=== PATIENT | female | born 1975 | race African-American/Black ===

== ENCOUNTER 2018-05-23 18:19 | Inpatient (IN) ==
[2018-05-23] MEDS ORDERED: Tetanus/Diphtheria Toxoid Adult Vaccine Inj 0.5 ML Vial IM ONE (20:10)
--- NOTE | 2018-05-23 20:10 | ED ---
HPI General Chief complaint: Skin/Abscess/Foreign Body Stated complaint: Right leg swollen,dizziness Time Seen by Provider: 05/23/18 19:50 Source: patient Mode of arrival: ambulatory Limitations: no limitations History of Present Illness HPI narrative: 43-year-old black female transgender presents emergency department with complaints of uncontrolled diabetes for over 10 years, as well as a open draining sore on her right lower leg for the past week. An open sore developed in the last day or 2. It had drained brown discharge. The surrounding skin has started to peel. She states that she has not been eating. She has had a decreased appetite, nausea and gags when she attempts to eat. She denies any fever chills. No abdominal pain, urinary symptoms. Related Data Home Medications Medication Instructions Recorded Confirmed No Known Home Medications 05/23/18 05/23/18 Allergies Allergy/AdvReac Type Severity Reaction Status Date / Time No Known Allergies Allergy Verified 05/23/18 18:39 Review of Systems ROS: all other systems reviewed are negative Constitutional Reports body ache(s), Reports lethargy and Reports poor appetite ENT Denies nasal congestion and Denies sore throat Cardiovascular Denies chest pain and Denies dyspnea Respiratory Denies chest congestion and Denies dyspnea Gastrointestinal Denies abdominal pain and Reports nausea Musculoskeletal Reports abnormal gait, Reports back pain, Reports myalgias and Reports arthralgias PMFSH History History Provided By: Patient Social History Social History Recent Travel in [facility] within the Last 8 Weeks: No Recent Out of Country Travel within the Last 8 Weeks: No Exam Narrative Exam Narrative: GENERAL: Well-developed, morbidly obese in no acute distress. Nontoxic appearing. HEAD: Normocephalic, atraumatic. EYES: Pupils equal round and reactive. Extraocular motions intact. No scleral icterus. No injection or drainage. ENT: TMs clear without erythema. The external auditory canals clear. Nose: clear . Posterior pharynx is pink and moist. No tonsillar edema or exudate. Uvula midline. Airway patent. NECK: Trachea midline.Supple, nontender, moves head freely. No central bony tenderness or spasm. CARDIOVASCULAR: Regular rate and rhythm without murmurs, gallops, or rubs. RESPIRATORY: Clear to auscultation. Breath sounds equal bilaterally. No wheezes , rales, or rhonchi. GASTROINTESTINAL: Abdomen soft, non-tender, nondistended. No hepato-splenomegaly , or palpable masses. No guarding. EXTREMITIES: Examination of the right lower extremity is considerably larger than the left lower extremity. From the knee down to the ankle is indurated, tender, there is surrounding desquamation with a central area of ulceration. There is a small amount of purulent drainage. Patient has intact gross sensation distally. She has intact pulses. Patient's upper extremities are without obvious deformity. She has sensation and good pulses. BACK: Nontender without deformity or crepitance. No flank tenderness. Course Reevaluation(s) Reevaluation #1: I have spoken with Janay the nurse practitioner covering for Dr. Cox. She has accepted the admission. She is aware of the history, laboratory findings and indication for full admission. Time: 22:52 Initial Documented Vital Signs Temperature 98.2 F 05/23/18 18:25 Pulse Rate 110 H 05/23/18 18:25 Respiratory Rate 16 05/23/18 18:25 Blood Pressure 175/85 H 05/23/18 18:25 Pulse Oximetry 100 05/23/18 18:25 Last Documented Vital Signs Temperature 98.2 F 05/23/18 18:25 Pulse Rate 110 H 05/23/18 18:25 Respiratory Rate 16 05/23/18 18:25 Blood Pressure 175/85 H 05/23/18 18:25 Pulse Oximetry 100 05/23/18 18:25 Medical Decision Making MDM Narrative Medical decision making narrative: IV access is obtained. Patient will be given 2 L of normal saline, Accu-Chek, CBC, chemistry, lactic acid, blood cultures 2. Patient is given Zosyn 4.5 g IV, 2 g of vancomycin IV. Will obtain an ultrasound of the right lower extremity rule out localized abscess. Patient has a large area of cellulitis to the right lower extremity. Medical Screen Exam Complete: Yes Emergency Medical Condition: Yes Differential Diagnosis Differential Diagnosis: MDM: High Differential diagnoses: Abscess, folliculitis, cellulitis, lymphangitis, abrasion, contact dermatitis, hyperglycemia, mitral abnormality Lab Data Result diagrams: 05/23/18 21:05 05/23/18 21:05 Lab Results 05/23/18 05/23/18 05/23/18 Range/Units 21:05 21:05 21:10 WBC 18.5 H (4.0-11.0) th/mm3 RBC 3.63 L (4.00-5.30) mil/mm3 Hgb 9.1 L (11.6-15.3) gm/dL Hct 29.1 L (35.0-46.0) % MCV 80.2 (80.0-100.0) fL MCH 25.0 L (27.0-34.0) pg MCHC 31.2 L (32.0-36.0) % RDW 16.2 (11.6-17.2) % Plt Count 265 (150-450) th/mm3 MPV 9.0 (7.0-11.0) fL Neut % (Auto) 85.1 H (16.0-70.0) % Lymph % (Auto) 8.2 L (9.0-44.0) % [place] % (Auto) 6.5 (0.0-8.0) % Eos % (Auto) 0.0 (0.0-4.0) % Baso % (Auto) 0.2 (0.0-2.0) % Neut # (Auto) 15.7 H (1.8-7.7) th/mm3 Lymph # (Auto) 1.5 (1.0-4.8) th/mm3 [place] # (Auto) 1.2 H (0.0-0.9) th/mm3 Eos # (Auto) 0.0 (0.0-0.4) th/mm3 Baso # (Auto) 0.0 (0.0-0.2) th/mm3 WBC Differential . Differential Comment Auto diff final Sodium 131 L (136-145) meq/L Potassium 4.2 (3.5-5.1) meq/L Chloride 97 L (98-107) meq/L Carbon Dioxide 21.6 (21.0-32.0) meq/L Anion Gap 12 (5-15) meq/L BUN 10 (7-18) mg/dL Creatinine 1.26 H (0.50-1.00) mg/dL Estimated GFR 56 L (>89) mL/min Random Glucose 379 H (74-106) mg/dL Lactic Acid 1.7 (0.4-2.0) mmol/L Calcium 8.6 (8.5-10.1) mg/dL Total Bilirubin 0.9 (0.2-1.0) mg/dL AST 36 (15-37) U/L ALT 21 (10-53) U/L Alkaline Phosphatase 113 (45-117) U/L Total Protein 8.7 H (6.4-8.2) g/dL Albumin 2.1 L (3.4-5.0) g/dL Beta-Hydroxybutyric Acd 4.56 H (0.00-0.39) mmol/L Imaging Data Radiologist's impression: Soft Tissue Ultrasound 05/23/18 20:47 CONCLUSION: 1. Complex fluid collection may be inflammatory/infectious process or posttraumatic and appears nonspecific. Discharge Plan Physicians Team ED Provider: Lyn Nazario ED Midlevel Provider: Reginald Hebert Primary Care Provider: Primary Care Karen Small Rxs /Orders / Referrals /Forms Prescriptions: No Action No Known Home Medications RF: 0 Discharge Interventions Interventions: Vital Signs Last Done: 05/23/18 18:25 Status ED Status: With Doctor
[2018-05-23] MEDS ORDERED: Piperacil/Tazo 4.5 GM Premix 4.5 GM/100 ML BAG IV.SIG ONE (20:53)
[2018-05-23] MEDS ORDERED: Vancomycin Inj 2,250 MG in Sodium Chlor 0.9% Inj 500 ML IV.SIG ONE (20:53)
[2018-05-23] MEDS: Sod Chloride 0.9% Inj 1,000 ML IV.SIG SCH (21:19)
[2018-05-23 21:35] LABS: Baso % (Auto) 0.2 % (0.0-2.0); Hematocrit 29.1 % (35.0-46.0); Hemoglobin 9.1 gm/dL (11.6-15.3); Lymph # (Auto) 1.5 th/mm3 (1.0-4.8); Lymph % (Auto) 8.2 % (9.0-44.0); Mean Corpuscular HGB Conc 31.2 % (32.0-36.0); Mean Corpuscular Volume 80.2 fL (80.0-100.0); Mono # (Auto) 1.2 th/mm3 (0.0-0.9); Mono % (Auto) 6.5 % (0.0-8.0); Neut # (Auto) 15.7 th/mm3 (1.8-7.7); Neut % (Auto) 85.1 % (16.0-70.0); Platelet Count 265 th/mm3 (150-450); Red Blood Count 3.63 mil/mm3 (4.00-5.30); Red Cell Distribution Width 16.2 % (11.6-17.2); White Blood Count 18.5 th/mm3 (4.0-11.0)
[2018-05-23 22:07] LABS: Alanine Aminotransferase 21 U/L (10-53)
[2018-05-23 22:08] LABS: Albumin 2.1 g/dL (3.4-5.0); Anion Gap 12 meq/L (5-15); Aspartate Aminotransferase 36 U/L (15-37); Blood Urea Nitrogen 10 mg/dL (7-18); Calcium 8.6 mg/dL (8.5-10.1); Carbon Dioxide 21.6 meq/L (21.0-32.0); Chloride 97 meq/L (98-107); Glomerular Filtration Rate 56 mL/min (>89); Glucose,Random 379 mg/dL (74-106); Sodium 131 meq/L (136-145)
[2018-05-23 22:10] LABS: Potassium 4.2 meq/L (3.5-5.1)
--- NOTE | 2018-05-23 22:17 | US ---
EXAM DATE: 05/23/2018 10:09 PM EDT AGE/SEX: 43 years / Female INDICATIONS: Swollen area on right leg. CLINICAL DATA: This is the patient's initial encounter. Patient reports that signs and symptoms have been present for 1 week and indicates a pain score of 2/10. MEDICAL/SURGICAL HISTORY: Diabetes. Nausea. None. COMPARISON: No prior exams available for comparison. FINDINGS: Examination of the patient's right distal calf demonstrates a complex fluid collection measures almos t 5.3 cm in size in the lower calf medially. CONCLUSION: 1. Complex fluid collection may be inflammatory/infectious process or posttraumatic and appears nons pecific. Electronically signed by: Carmen Rodriguez MD 05/23/2018 10:16 PM EDT
[2018-05-23 22:18] LABS: Alkaline Phosphatase 113 U/L (45-117); Beta Hydroxybutyric Acid 4.56 mmol/L (0.00-0.39); Total Protein 8.7 g/dL (6.4-8.2)
[2018-05-23] MEDS ORDERED: Acetaminophen 325 MG Tablet PO PRN (23:44)
--- NOTE | 2018-05-23 23:48 | P.HPIM ---
History of Present Illness Primary Care Physician: No Primary Care Physician Chief Complaint: right leg wound History of Present Illness: 43 y/o female with a history of uncontrolled diabetes for over 10 years (does not see a pcp) presented to the ED with complaints of right lower leg wound. She states the sore on her right lower leg opened up this past week and started draining brown fluid. She has associated decreased appetite and nausea. Denies any fever or chills at home.She states she has not been able to control her diabetes with diet and exercise and does not see a pcp due to insurance issues. Inpatient Certification: I certify that the inpatient services were ordered in accordance with Medicare regulations governing the order. This includes certification that hospital inpatient services are reasonable and necessary and in the case of services not specified as inpatient-only under 42 CFR 419.22(n), that they are appropriately provided as inpatient services in accordance to with the 2-midnight benchmark under 43 CFR 412.3(e) Estimated Total Length of Stay (Days): 3 Plans for Post Hospital Care: Home PMFSH - History History Provided By: Patient - Travel History Recent Travel in the [place] Within the Last 8 Weeks: No Recent Travel Out of the Country Within the Last 8 Weeks: No Medications and Allergies Active Medications: Active Medications Acetaminophen (Tylenol) 650 mg PO Q4H PRN PRN Reason: Temp > 100.4 Sodium Chloride (Ns Inj) 1,000 mls @ 0 mls/hr IV.SIG BOLUS MIGUELITO Stop: 05/24/18 21:01 Last Infusion: 05/23/18 23:11 Dose: Infused Sodium Chloride (Ns Inj) 1,000 mls @ 100 mls/hr IV.CONT .Q10H MIGUELITO Morphine Sulfate (Morphine Inj) 2 mg IV.PUSH Q4H PRN PRN Reason: pain 1 to 10 Ondansetron HCl (Zofran Inj) 4 mg IV.PUSH Q6H PRN PRN Reason: NAUSEA OR VOMITING Sodium Chloride (Ns Flush) 2 ml IV.FLUSH PRN PRN PRN Reason: FLUSH AFTER USING IV ACCESS Allergies Allergy/AdvReac Type Severity Reaction Status Date / Time No Known Allergies Allergy Verified 05/23/18 18:39 Home Medications Medication Instructions Recorded Confirmed Type No Known Home Medications 05/23/18 05/23/18 History Exam Vital signs: Vital Signs 05/23/18 18:25 Temperature 98.2 F Pulse Rate 110 H Respiratory Rate 16 Blood Pressure 175/85 H Pulse Oximetry 100 Intake & Output 05/23/18 05/23/18 05/24/18 06:59 18:59 06:59 Intake Total 1100 / 1100 Balance 1100 / 1100 Weight 150 kg Intake: IV 1100 / 1100 Zosyn 4.5 GM Premix 4.5 gm In 100 / 100 100 ml @ 200 mls/hr IV.SIG ONCE ONE Rx#:[id number] NS Inj 1,000 ML @ Wide Open IV. 1000 / 1000 SIG BOLUS MIGUELITO Rx#:[id number] Narrative: GENERAL: This is a well-nourished, obese patient, in no apparent distress. Skin: Cellulitis to right calf with open purulent/brown draining wound, foul smelling CARDIOVASCULAR: Regular rate and rhythm without murmurs, gallops, or rubs. RESPIRATORY: Clear to auscultation. Breath sounds equal bilaterally. No wheezes , rales, or rhonchi. GASTROINTESTINAL: Abdomen soft, non-tender, nondistended. Normal active bowel sounds MUSCULOSKELETAL: Bilateral lower extremity edema, non pitting NEURO: Alert & Oriented x4 to person, place, time, situation. Moves all ext x4 Results - Labs CBC & Chem 7: 05/23/18 21:05 05/23/18 21:05 Labs: Short CBC 05/23/18 Range/Units 21:05 WBC 18.5 H (4.0-11.0) th/mm3 Hgb 9.1 L (11.6-15.3) gm/dL Hct 29.1 L (35.0-46.0) % Plt Count 265 (150-450) th/mm3 BMP 05/23/18 21:05 Sodium 131 L Potassium 4.2 Chloride 97 L Carbon Dioxide 21.6 BUN 10 Creatinine 1.26 H Calcium 8.6 Liver Function 05/23/18 Range/Units 21:05 Total Bilirubin 0.9 (0.2-1.0) mg/dL AST 36 (15-37) U/L ALT 21 (10-53) U/L Alkaline Phosphatase 113 (45-117) U/L Albumin 2.1 L (3.4-5.0) g/dL - Imaging Impressions Soft Tissue Ultrasound 05/23/18 20:47 CONCLUSION: 1. Complex fluid collection may be inflammatory/infectious process or posttraumatic and appears nonspecific. Caprini VTE Risk Assessment Caprini VTE Risk Assessment: Moderate/High Risk (score >= 2) Caprini Risk Assessment Model: Point Value = 1 Point Value = 2 Point Value = 3 Point Value = 5 Age 41-60 Minor surgery BMI > 25 kg/m2 Swollen legs Varicose veins or History of unexplained or recurrent spontaneous Oral contraceptives or hormone replacement Sepsis (< 1 month) Serious lung disease, including pneumonia (< 1 month) Abnormal pulmonary function Acute myocardial infarction Congestive heart failure (< 1 month) History of inflammatory bowel disease Medical patient at bed rest Age 61-74 Arthroscopic surgery Major open surgery (> 45 min) Laparoscopic surgery (> 45 min) Malignancy Confined to bed (> 72 hours) Immobilizing plaster cast Central venous access Age >= 75 History of VTE Family history of VTE Factor V Leiden Prothrombin [id number] Lupus anticoagulant Anticardiolipin antibodies Elevated serum homocysteine Heparin-induced thrombocytopenia Other congenital or acquired thrombophilia Stroke (< 1 month) Elective arthroplasty Hip, pelvis, or leg fracture Acute spinal cord injury (< 1 month) Prophylaxis Regimen: Total Risk Factor Score Risk Level Prophylaxis Regimen 0-1 Low Early ambulation 2 Moderate Order ONE of the following: *Sequential Compression Device (SCD) *Heparin 5000 units SQ BID 3-4 Higher Order ONE of the following medications: *Heparin 5000 units SQ TID *Enoxaparin/Lovenox 40 mg SQ daily (WT < 150 kg, CrCl > 30 mL/min) *Enoxaparin/Lovenox 30 mg SQ daily (WT < 150 kg, CrCl > 10-29 mL/min) *Enoxaparin/Lovenox 30 mg SQ BID (WT < 150 kg, CrCl > 30 mL/min) AND/OR *Sequential Compression Device (SCD) 5 or more Highest Order ONE of the following medications: *Heparin 5000 units SQ TID (Preferred with Epidurals) *Enoxaparin/Lovenox 40 mg SQ daily (WT < 150 kg, CrCl > 30 mL/min) *Enoxaparin/Lovenox 30 mg SQ daily (WT < 150 kg, CrCl > 10-29 mL/min) *Enoxaparin/Lovenox 30 mg SQ BID (WT < 150 kg, CrCl > 30 mL/min) AND *Sequential Compression Device (SCD) Assessment and Plan - Plan Sepsis, wbc 18.5, HR 110, source Cellulitis with possible abscess US reviewed and shows a complex fluid collection measures almost 5.3 cm in size in the lower calf medially, infectious vs inflammatory. -Consult podiatry for evaluation -IV antibiotics Zosyn and Vancomycin -Pain management with IV morphine -NPO, IVF -Doppler US r/o DVT Hyperglycemia, in patient with chronic uncontrolled diabetes -A1C ordered -Accu checks with SSI -Patient will most likely need long acting insulin Acute kidney injury, creatine 1.2, unknown baseline, maybe chronic due to history of uncontrolled diabetes -Cont IVF -Trend creatine -avoid nephrotoxins DVT prophylaxis: SCDs Discussed Condition With: Patient and RN
[2018-05-23] MEDS ORDERED: Vancomycin Consult Pharmacy OTHER PRN (23:50)
[2018-05-24] MEDS: Sod Chloride 0.9% Inj 1,000 ML IV.SIG SCH (00:05)
[2018-05-24] MEDS: Morphine Sulfate Inj 2 MG/ML Vial IV.PUSH PRN ×2 (00:05→05:26)
[2018-05-24] MEDS ORDERED: Dextrose 50% in Water 50 ML Vial IV.PUSH PRN (00:46)
[2018-05-24] MEDS: Sod Chloride 0.9% Inj 1,000 ML IV.CONT SCH ×3 (01:40→23:42)
[2018-05-24] MEDS: Piperacil/Tazo 3.375 GM Premix 50 ML IV.SIG SCH ×5 (05:10→21:59)
[2018-05-24 06:38] LABS: Baso % (Auto) 0.3 % (0.0-2.0); Eos % (Auto) 0.2 % (0.0-4.0); Hematocrit 26.8 % (35.0-46.0); Hemoglobin 8.5 gm/dL (11.6-15.3); Lymph # (Auto) 1.3 th/mm3 (1.0-4.8); Lymph % (Auto) 8.3 % (9.0-44.0); Mean Corpuscular HGB Conc 31.8 % (32.0-36.0); Mean Corpuscular Hemoglobin 25.4 pg (27.0-34.0); Mean Corpuscular Volume 79.8 fL (80.0-100.0); Mean Platelet Volume 8.9 fL (7.0-11.0); Mono # (Auto) 0.9 th/mm3 (0.0-0.9); Neut # (Auto) 13.2 th/mm3 (1.8-7.7); Neut % (Auto) 85.2 % (16.0-70.0); Platelet Count 249 th/mm3 (150-450); Red Blood Count 3.36 mil/mm3 (4.00-5.30); Red Cell Distribution Width 16.7 % (11.6-17.2); White Blood Count 15.5 th/mm3 (4.0-11.0)
[2018-05-24 06:52] LABS: Carbon Dioxide 19.9 meq/L (21.0-32.0); Potassium 3.9 meq/L (3.5-5.1)
[2018-05-24] MEDS: Insulin NovoLOG Aspart Correctional Sugar Inj SQ SCH ×4 (09:18→23:35)
--- NOTE | 2018-05-24 09:47 | P.PN ---
Subjective Interval history: Follow-up visit right lower extremity wound with abscess, cellulitis, uncontrolled diabetes, morbid obesity. Patient seen and examined today. Reports she has not been taking any medications for diabetes for 10 years. States that she has abused her body by eating and drinking like she does not care and also heavily on soda. States that wound has been with her for quite some time however she has been feeling weak, wound started to weep and leak. Denies any fevers, chills, nausea, vomiting, diarrhea. Denies chest pain, palpitations, headaches, dizziness. Podiatry Dr. Craft that at the bedside, discussed with patient plan for MRI, CT runoff of the right lower extremity secondary to wound, abscess to assess for plan for either surgical intervention in the OR or bedside I&D pending MRI. Physical Exam Vital signs: Vital Signs 05/23/18 18:25 05/24/18 00:10 05/24/18 01:48 Temperature 98.2 F 98.6 F Pulse Rate 110 H 104 H 108 H Respiratory Rate 16 18 17 Blood Pressure 175/85 H 127/56 L 158/79 H Pulse Oximetry 100 100 97 05/24/18 04:00 05/24/18 08:00 Temperature 98.5 F 99.8 F H Pulse Rate 105 H 106 H Respiratory Rate 17 16 Blood Pressure 147/71 H 125/67 Pulse Oximetry 95 97 Intake & Output 05/23/18 05/24/18 05/24/18 18:59 06:59 18:59 Intake Total 2672.5 / 2672.5 1050 / 1050 Balance 2672.5 / 2672.5 1050 / 1050 Weight 150 kg 149.685 kg Intake: IV 2672.5 / 2672.5 1050 / 1050 NS Inj 1,000 ML @ 100 mls/hr IV 1000 / 1000 .CONT .Q10H MIGUELITO Rx#:[id number] Zosyn 3.375 GM Premix 50 ML @ 50 / 50 50 / 50 100 mls/hr IV.SIG Q6H MIGUELITO Rx#: [id number] Zosyn 4.5 GM Premix 4.5 gm In 100 / 100 100 ml @ 200 mls/hr IV.SIG ONCE ONE Rx#:[id number] NS Inj 1,000 ML @ Wide Open IV. 1999 SIG BOLUS MIGUELITO Rx#:[id number] Vancomycin Inj 2,250 MG In NS 522.5 / 522.5 Inj 500 ML @ 250 mls/hr IV.SIG ONCE ONE Rx#:[id number] Other: # Voids 2 Weight On Admission 149.685 kg Narrative: GENERAL: This is an obese, well-developed patient, in no apparent distress. SKIN: Warm and dry. HEENT: Normocephalic. Pupils equal round and reactive. Nose without bleeding. Airway patent. NECK: Trachea midline. No JVD. Supple. CARDIOVASCULAR: Regular rate and rhythm without murmurs, gallops, or rubs. RESPIRATORY: Clear to auscultation. Breath sounds equal bilaterally. No wheezes , rales, or rhonchi. GASTROINTESTINAL: Abdomen soft, non-tender, nondistended. Bowel Sounds normoactive x4. MUSCULOSKELETAL: Extremities without clubbing, cyanosis. Right lower extremity edema +3, possible underlying lymphedema, wound weeping, skin sloughing off, appears to have purulent drain pustular lesion noted. Erythema of entire LLE including mid thigh are. Midthigh inner lateral side withwound opening, serous fluid drain, scant amt. LLE edema +1 NEUROLOGICAL: Awake and alert. Oriented to time, place, person. No focal neuro deficit. Moves all extremities, RLE weaker. Normal speech. Results - Labs CBC & Chem 7: 05/24/18 05:56 05/24/18 05:56 Laboratory Results - last 24 hr 05/23/18 05/23/18 05/23/18 21:05 21:05 21:10 WBC 18.5 H RBC 3.63 L Hgb 9.1 L Hct 29.1 L MCV 80.2 MCH 25.0 L MCHC 31.2 L RDW 16.2 Plt Count 265 MPV 9.0 Neut % (Auto) 85.1 H Lymph % (Auto) 8.2 L [place] % (Auto) 6.5 Eos % (Auto) 0.0 Baso % (Auto) 0.2 Neut # (Auto) 15.7 H Lymph # (Auto) 1.5 [place] # (Auto) 1.2 H Eos # (Auto) 0.0 Baso # (Auto) 0.0 WBC Differential . Differential Comment Auto diff final Sodium 131 L Potassium 4.2 Chloride 97 L Carbon Dioxide 21.6 Anion Gap 12 BUN 10 Creatinine 1.26 H Estimated GFR 56 L POC Glucose Random Glucose 379 H Lactic Acid 1.7 Calcium 8.6 Total Bilirubin 0.9 AST 36 ALT 21 Alkaline Phosphatase 113 Total Protein 8.7 H Albumin 2.1 L Beta-Hydroxybutyric Acd 4.56 H 05/24/18 05/24/18 05/24/18 05:56 05:56 08:44 WBC 15.5 H RBC 3.36 L Hgb 8.5 L Hct 26.8 L MCV 79.8 L MCH 25.4 L MCHC 31.8 L RDW 16.7 Plt Count 249 MPV 8.9 Neut % (Auto) 85.2 H Lymph % (Auto) 8.3 L [place] % (Auto) 6.0 Eos % (Auto) 0.2 Baso % (Auto) 0.3 Neut # (Auto) 13.2 H Lymph # (Auto) 1.3 [place] # (Auto) 0.9 Eos # (Auto) 0.0 Baso # (Auto) 0.0 WBC Differential . Differential Comment Auto diff final Sodium 138 Potassium 3.9 Chloride 103 Carbon Dioxide 19.9 L Anion Gap 15 BUN 10 Creatinine 1.10 H Estimated GFR 65 L POC Glucose 347 H Random Glucose 326 H Lactic Acid Calcium 8.0 L Total Bilirubin AST ALT Alkaline Phosphatase Total Protein Albumin Beta-Hydroxybutyric Acd - Imaging Impressions Soft Tissue Ultrasound 05/23/18 20:47 CONCLUSION: 1. Complex fluid collection may be inflammatory/infectious process or posttraumatic and appears nonspecific. Assessment and Plan - Plan 43 y/o female with a history of uncontrolled diabetes for over 10 years (does not see a pcp) presented to the ED with complaints of right lower leg wound. Sepsis, wbc 18.5, HR 110, source Cellulitis with possible abscess US reviewed and shows a complex fluid collection measures almost 5.3 cm in size in the lower calf medially, infectious vs inflammatory. -Consult podiatry, Plan for MRI, CTA runoff -IV antibiotics Zosyn and Vancomycin -Pain management with IV morphine -IVF, Diabetic diet -Doppler US r/o DVT Hyperglycemia, in patient with chronic uncontrolled diabetes -A1C ordered -Accu checks with SSI -Patient will most likely need long acting insulin, start 70/30 BID 10 units , adjust as needed Acute kidney injury, creatine 1.2, unknown baseline, maybe chronic due to history of uncontrolled diabetes -Cont IVF -Trend creatine -avoid nephrotoxins DVT prophylaxis: SCDs Code Status: Full Code Discussed Condition With: Patient, nursing Discharge Planning: Plan to DC when clinically improved.
[2018-05-24 11:25] LABS: Hemoglobin A1c 15.1 % (4.3-6.0)
[2018-05-24] MEDS ORDERED: Gadobutrol PF 7.5 MMOL/7.5 ML Vial (for RAD) IV.SIG ONE (12:52)
--- NOTE | 2018-05-24 13:23 | MR ---
EXAM DATE: 05/24/2018 1:10 PM EDT AGE/SEX: 43 years / Female INDICATIONS: Right lower leg swelling and weeping. CLINICAL DATA: This is the patient's subsequent encounter. Patient reports that signs and symptoms h ave been present for 2 days and indicates a pain score of 3/10. MEDICAL/SURGICAL HISTORY: None. None. COMPARISON: No prior exams available for comparison. TECHNIQUE: Multiplanar, multisequence MRI examination was performed without and with 15 ml Gadavist (gadobutrol) contrast as single exam dose. FINDINGS: There is diffuse subcutaneous edema, skin thickening and enhancement following contrast administratio n within the subcutaneous tissues characteristic of cellulitis. There are no organized fluid collecti ons seen to suggest abscess at this time, however fluid is most pronounced along the medial aspect of the lower leg. The underlying bone marrow signal intensity is normal. No abnormal intramuscular enha ncement is seen. CONCLUSION: 1. Diffuse subcutaneous edema, nonorganized fluid and skin thickening characteristic of cellulitis a nd inflammation without obvious abscess. Electronically signed by: Osman Burns MD 05/24/2018 1:21 PM EDT
[2018-05-24] MEDS: Vancomycin Inj 1,750 MG in Sodium Chlor 0.9% Inj 500 ML IV.SIG SCH (17:59)
--- NOTE | 2018-05-24 20:13 | MB ---
cc: Rosemary Maravilla DPM DATE: 05/24/2018 REASON FOR CONSULTATION: Right foot cellulitis. HISTORY OF PRESENT ILLNESS: The patient is a 43-year-old female with uncontrolled diabetes who presented with a right lower leg wound which opened up approximately a week ago with drainage. Denies fever or chills at home. No previous history of treatment. PAST MEDICAL HISTORY: Diabetes. PAST SURGICAL HISTORY: Per HPI. MEDICATIONS: Per HPI. PHYSICAL EXAMINATION: Right versus left lower extremity edema. Right lower extremity +3 pitting edema, medial calf sloughing. No active streaking. Positive erythema. DP is palpable. PT is nonpalpable. Muscles of extremities within normal limits. LABORATORY DATA: WBC on 05/23/2018 was 18.5 and on 05/24/2018 was 15.5. Right lower extremity MRI without any abscess, positive edema. ASSESSMENT: 1. Diabetes mellitus, uncontrolled. 2. Right leg cellulitis, no abscess per MRI. RECOMMENDATIONS: Continue with IV antibiotics and likely Unna boot changes daily. Unna boot changes would be indicated if there is no CHF. There is a CTA pending. Plan to discharge when stable. There is no surgical intervention required. Rosemary Maravilla DPM SR/purvi , 07:55 PM , 08:01 PM
--- NOTE | 2018-05-24 20:27 | CT ---
EXAM DATE: 05/24/2018 7:55 PM EDT AGE/SEX: 43 years / Female INDICATIONS: Peripheral vascular disease. Bilateral lower extremities swollen. Right lower extremity blistered and draining. CLINICAL DATA: This is the patient's initial encounter. Patient reports that signs and symptoms have been present for 4 - 6 days and indicates a pain score of 8/10. MEDICAL/SURGICAL HISTORY: Diabetes. None. RADIATION DOSE: 35.26 CTDI (mGy) ; Patient body habitus COMPARISON: No prior exams available for comparison. TECHNIQUE: Volumetric scanning was performed using a multi-row detector CT scanner during bolus infu brad of 100 ml Omnipaque 350 (iohexol) nonionic water-soluble contrast as a single exam dose. The data was post processed with a variety of visualization algorithms including full volume maximum inte nsity projection, multi-planar sliding thin slab reformation, curved planar reformation, and surface rendering techniques. Using automated exposure control and adjustment of the mA and/or kV according to patient size, radiation dose was kept as low as reasonably achievable to obtain optimal diagnostic quality images. DICOM format image data is available electronically for review and comparison. FINDINGS: The aorta appears intact and the takeoff of the celiac, SMA and renal arteries are patent. The common iliac arteries are all also intact. The external iliac arteries, common femoral, superficial femoral arteries, popliteal arteries all intact bilaterally. There is excellent three-vessel runoff to the l eft ankle. The right lower extremity significantly swollen with significant subcutaneous edema below the knee. This causes some degree of compartment syndrome and mass effect on the blood supply to the patient's ankle, however 3 vessels are identified supplying the ankle. There is mild degree of subcut aneous emphysema in the left lower extremity. CONCLUSION: 1. Extensive serpiginous edema below the knee on the right and to a lesser degree on the left. There is excellent three-vessel runoff to the left ankle and on the right side blood vessels are patent al though it down to trifurcation past the popliteal artery. Below the knee there is dampened flow proba [place] due to extrinsic mass effect from significant edema in the surrounding soft tissues without defin ite focal stenosis for technique. Electronically signed by: Carmen Rodriguez MD 05/24/2018 8:25 PM EDT
[2018-05-25] MEDS: Piperacil/Tazo 3.375 GM Premix 50 ML IV.SIG SCH ×4 (03:23→21:55)
--- NOTE | 2018-05-25 09:38 | US ---
EXAM DATE: 05/25/2018 9:31 AM EDT AGE/SEX: 43 years / Female INDICATIONS: Right leg pain. CLINICAL DATA: This is the patient's initial encounter. Patient reports that signs and symptoms have been present for 1 day and indicates a pain score of 4/10. MEDICAL/SURGICAL HISTORY: Diabetes. None. COMPARISON: [facility] [place], 05/23/2018. . TECHNIQUE: Venous ultrasound of both lower extremities was performed from the inguinal ligament to t he proximal calf. Real-time, color Doppler and spectral tracing, compression and augmentation techni ques were used. FINDINGS: Normal compression of the deep venous system from the inguinal region to the proximal calf . No echogenic clot is seen. Normal response of the venous system to augmentation and respiration. Th ere is soft tissue swelling and complex fluid collection as seen on previous study. This appears slig htly less prominent. Fluid collection measures 3.8 x 4.0 x 2.8 cm. A second fluid collection measures 2.8 x 1.3 x 2.3 cm CONCLUSION: 1. No deep venous thrombosis. 2. Decreasing fluid collection right leg. Electronically signed by: Andre Montoya MD 05/25/2018 9:36 AM EDT
[2018-05-25] MEDS: Sod Chloride 0.9% Inj 1,000 ML IV.CONT SCH ×2 (09:53→16:53)
[2018-05-25] MEDS: Insulin NovoLOG Aspart Correctional Sugar Inj SQ SCH ×4 (09:55→20:40)
[2018-05-25] MEDS: Vancomycin Inj 1,750 MG in Sodium Chlor 0.9% Inj 500 ML IV.SIG SCH (11:59)
--- NOTE | 2018-05-25 15:45 | P.PN ---
Subjective Interval history: Follow-up visit right lower extremity wound with abscess, cellulitis, uncontrolled diabetes, morbid obesity. Patient indicates significant pain to the right leg. She is not very hungry, has occasional nausea, no vomiting. Blood sugars have been elevated up to 300s. Patient has been noncompliant for many years and was not aware of the damage she was causing her body. She is interested in talking to the master police detective. Indicates that this is a wake- up call. No fever overnight, no chills. No chest pain, no palpitations, no diarrhea. Physical Exam Vital signs: Vital Signs 05/24/18 16:00 05/24/18 20:00 05/24/18 23:31 Temperature 99.8 F H 98.6 F Pulse Rate 98 H 93 H 90 Respiratory Rate 16 17 Blood Pressure 138/79 139/71 Pulse Oximetry 99 97 05/25/18 00:00 05/25/18 02:00 05/25/18 04:00 Temperature 98.5 F Pulse Rate 96 H 94 H Respiratory Rate 16 17 Blood Pressure 134/72 Pulse Oximetry 97 05/25/18 07:41 05/25/18 08:00 05/25/18 12:00 Temperature 98.3 F 99.0 F Pulse Rate 97 H 96 H 103 H Respiratory Rate 20 22 Blood Pressure 134/72 127/69 Pulse Oximetry 98 97 Intake & Output 05/24/18 05/25/18 05/25/18 18:59 06:59 18:59 Intake Total 1150 / 1150 1617.5 / 1617.5 1567.5 / 1567.5 Balance 1150 / 1150 1617.5 / 1617.5 1567.5 / 1567.5 Intake: IV 1150 / 1150 1617.5 / 1617.5 1567.5 / 1567.5 NS Inj 1,000 ML @ 100 mls/hr IV 1000 / 1000 1000 / 1000 1000 / 1000 .CONT .Q10H [facility] Rx#:[id number] Zosyn 3.375 GM Premix 50 ML @ 150 / 150 100 / 100 50 / 50 100 mls/hr IV.SIG Q6H [facility] Rx#: [id number] Vancomycin Inj 1,750 MG In NS 517.5 / 517.5 517.5 / 517.5 Inj 500 ML @ 250 mls/hr IV.SIG Q18H [facility] Rx#:[id number] Other: # Voids 2 Date of Last Bowel Movement 05/24/18 Narrative: GENERAL: obese, well-developed patient, in no apparent distress. SKIN: Warm and dry. HEENT: Normocephalic. Pupils equal round and reactive. Nose without bleeding. Airway patent. NECK: Trachea midline. No JVD. Supple. CARDIOVASCULAR: Regular rate and rhythm without murmurs, gallops, or rubs. RESPIRATORY: Clear to auscultation. Breath sounds equal bilaterally. No wheezes , rales, or rhonchi. GASTROINTESTINAL: Abdomen soft, non-tender, nondistended. Bowel Sounds normoactive x4. MUSCULOSKELETAL: Extremities without clubbing, cyanosis. Right lower extremity edema +3, possible underlying lymphedema, wound weeping, skin sloughing off around right calf. Erythema of entire LLE including mid thigh are. Midthigh inner lateral side with wound opening, serous fluid drain, scant amt. LLE edema +1 Venous discoloration noted to right lower extremity. NEUROLOGICAL: Awake and alert. Oriented to time, place, person. No focal neuro deficit. Moves all extremities, RLE weaker. Normal speech. Results - Labs CBC & Chem 7: 05/24/18 05:56 05/24/18 05:56 Laboratory Results - last 24 hr 05/24/18 05/24/18 05/24/18 17:59 20:27 23:28 POC Glucose 383 H 368 H 330 H 05/25/18 05/25/18 07:23 11:35 POC Glucose 265 H 273 H Microbiology 05/24/18 18:02 Abscess - Leg Gram Stain - Final 05/24/18 18:02 Abscess - Leg Wound Culture - Preliminary Group B beta Strep 05/23/18 21:05 Blood - Peripheral Aerobic Blood Culture - Preliminary No growth in 2 days 05/23/18 21:05 Blood - Peripheral Anaerobic Blood Culture - Preliminary No growth in 2 days 05/23/18 21:10 Blood - Peripheral Aerobic Blood Culture - Preliminary No growth in 2 days 05/23/18 21:10 Blood - Peripheral Anaerobic Blood Culture - Preliminary No growth in 2 days - Imaging Impressions Aorta w/Runoff CTA 05/24/18 00:00 CONCLUSION: 1. Extensive serpiginous edema below the knee on the right and to a lesser degree on the left. There is excellent three-vessel runoff to the left ankle and on the right side blood vessels are patent although it down to trifurcation past the popliteal artery. Below the knee there is dampened flow probably due to extrinsic mass effect from significant edema in the surrounding soft tissues without definite focal stenosis for technique. Venous Doppler Study 05/25/18 00:00 CONCLUSION: 1. No deep venous thrombosis. 2. Decreasing fluid collection right leg. Assessment and Plan - Assessment (1) Left leg cellulitis Code(s): L03.116 - Cellulitis of left lower limb Status: Acute (2) Sepsis Code(s): A41.9 - Sepsis, unspecified organism Status: Acute (3) Uncontrolled diabetes mellitus Code(s): E11.65 - Type 2 diabetes mellitus with hyperglycemia Status: Acute (4) Obesity Code(s): E66.9 - Obesity, unspecified Status: Chronic (5) BELEM (acute kidney injury) Code(s): N17.9 - Acute kidney failure, unspecified Status: Acute (6) Non-compliance Code(s): Z91.19 - Patient's noncompliance with other medical treatment and regimen Status: Chronic - Plan 43 y/o female with a history of uncontrolled diabetes for over 10 years (does not see a pcp) presented to the ED with complaints of right lower leg wound. Sepsis, wbc 18.5, HR 110, source Cellulitis with possible abscess US reviewed and shows a complex fluid collection measures almost 5.3 cm in size in the lower calf medially, infectious vs inflammatory. -Appreciate podiatry input -Imaging studies reviewed-no obvious abscess, adequate blood flow. -US right leg - DVT -IV antibiotics Zosyn and Vancomycin -Pain management with IV morphine and [place] -Cultures growing B beta strep Hyperglycemia, in patient with chronic uncontrolled diabetes -A1C 15.1 -Accu checks with SSI -Blood glucose 300s, will change to Levemir 15 units SQ BID -software writer input appreciated. Pt. will need insulin on discharge. Acute kidney injury, creatine 1.2, unknown baseline, maybe chronic due to history of uncontrolled diabetes Improving. -Cont IVF -Trend creatine, improving -avoid nephrotoxins Obesity -needs to lose weight, d/w pt. States she needs to change diet at home. DVT prophylaxis: Heparin SQ D/W RN, CM. Will f/u on podiatry recommendations. Poss need HHC, wound care. (2) Sepsis Qualifiers: Sepsis type: sepsis due to unspecified organism Qualified Code(s): A41.9 - Sepsis, unspecified organism (3) Uncontrolled diabetes mellitus Qualifiers: Diabetes mellitus type: type 2 Glycemic state: with hyperglycemia Qualified Code(s): E11.65 - Type 2 diabetes mellitus with hyperglycemia (4) Obesity Qualifiers: Obesity type: due to excess calories
--- NOTE | 2018-05-25 20:25 | P.PNPOD ---
Subjective Interval history: R LE venous insufficiency Dm uncontrolled. Physical Exam Vital signs: Vital Signs 05/24/18 23:31 05/25/18 00:00 05/25/18 02:00 Temperature 98.5 F Pulse Rate 90 96 H Respiratory Rate 16 17 Blood Pressure 134/72 Pulse Oximetry 97 05/25/18 04:00 05/25/18 07:41 05/25/18 08:00 Temperature 98.3 F Pulse Rate 94 H 97 H 96 H Respiratory Rate 20 Blood Pressure 134/72 Pulse Oximetry 98 05/25/18 12:00 05/25/18 15:53 05/25/18 17:10 Temperature 99.0 F 98.3 F 98.2 F Pulse Rate 103 H 95 H 95 H Respiratory Rate 22 20 20 Blood Pressure 127/69 144/72 H 176/79 H Pulse Oximetry 97 98 99 05/25/18 18:20 Temperature Pulse Rate 93 H Respiratory Rate Blood Pressure Pulse Oximetry Intake & Output 05/25/18 05/25/18 05/26/18 06:59 18:59 06:59 Intake Total 1617.5 / 1617.5 1567.5 / 1567.5 50 / 50 Output Total 2 / 2 Balance 1617.5 / 1617.5 1565.5 / 1565.5 50 / 50 Intake: IV 1617.5 / 1617.5 1567.5 / 1567.5 50 / 50 NS Inj 1,000 ML @ 100 mls/hr IV 1000 / 1000 1000 / 1000 .CONT .Q10H [facility] Rx#:[id number] Zosyn 3.375 GM Premix 50 ML @ 100 / 100 50 / 50 50 / 50 100 mls/hr IV.SIG Q6H [facility] Rx#: [id number] Vancomycin Inj 1,750 MG In NS 517.5 / 517.5 517.5 / 517.5 Inj 500 ML @ 250 mls/hr IV.SIG Q18H [facility] Rx#:[id number] Output: Urine Stool Other: Date of Last Bowel Movement 05/24/18 05/25/18 Narrative: RLE severe + 3 edema + resolving erythema No streaking No purulence. Medications and Allergies Active Medications: Active Medications Acetaminophen (Tylenol) 650 mg PO Q4H PRN PRN Reason: Temp > 100.4, MAIN, Pain1-2 Hydrocodone Bitart/Acetaminophen ([place] 7.5/325) 1 tab PO Q4H PRN PRN Reason: Pain 7-10 Last Admin: 05/25/18 06:11 Dose: 1 tab Hydrocodone Bitart/Acetaminophen ([place] 5/325) 1 tab PO Q4H PRN PRN Reason: Pain 3-6 Last Admin: 05/25/18 17:51 Dose: 1 tab Dextrose (D50w Vial) 50 ml IV.PUSH UNSCH PRN PRN Reason: PER HYPOGLYCEMIA PROTOCOL Glucagon (Glucagon Inj) 1 mg OTHER PRN PRN PRN Reason: for Hypoglycemia Protocol Heparin Sodium (Porcine) (Heparin Inj) 5,000 units SQ Q12HR [facility] Sodium Chloride (Ns Inj) 1,000 mls @ 100 mls/hr IV.CONT .Q10H [facility] Last Admin: 05/25/18 16:53 Dose: Not Given Piperacillin/Tazobactam/Dextrose (Zosyn 3.375 Gm Premix) 50 mls @ 100 mls/hr IV.SIG Q6H [facility] Last Infusion: 05/25/18 19:25 Dose: Infused Vancomycin HCl 1,750 mg/ (Sodium Chloride) 517.5 mls @ 250 mls/hr IV.SIG Q18H [facility] Last Infusion: 05/25/18 14:04 Dose: Infused Insulin Aspart (Novolog Insulin Correctional Sugar Inj) 0 unit SQ ACHS [facility]; Protocol Last Admin: 05/25/18 17:00 Dose: 7 unit Insulin Detemir (Levemir Inj) 15 unit SQ BID [facility] Miscellaneous Information ([facility] Ordered Lab Info) 0 each OTHER ONCE ONE Stop: 05/26/18 05:46 Morphine Sulfate (Morphine Inj) 2 mg IV.PUSH Q4H PRN PRN Reason: BREAKTHROUGH PAIN Last Admin: 05/24/18 05:26 Dose: 2 mg Ondansetron HCl (Zofran Inj) 4 mg IV.PUSH Q6H PRN PRN Reason: NAUSEA OR VOMITING Last Admin: 05/24/18 23:23 Dose: 4 mg Pharmacy Profile Note (Vancomycin Consult Pharmacy) 1 each OTHER UNSCH PRN PRN Reason: Pharmacy to dose Sodium Chloride (Ns Flush) 2 ml IV.FLUSH PRN PRN PRN Reason: FLUSH AFTER USING IV ACCESS Allergies Allergy/AdvReac Type Severity Reaction Status Date / Time No Known Allergies Allergy Verified 05/23/18 18:39 Home Medications Medication Instructions Recorded Confirmed Type No Known Home Medications 05/23/18 05/23/18 History Results - Labs CBC & Chem 7: 05/24/18 05:56 05/24/18 05:56 Laboratory Results - last 24 hr 05/24/18 05/24/18 05/25/18 20:27 23:28 07:23 POC Glucose 368 H 330 H 265 H 05/25/18 11:35 POC Glucose 273 H Microbiology 05/24/18 18:02 Abscess - Leg Gram Stain - Final 05/24/18 18:02 Abscess - Leg Wound Culture - Preliminary Group B beta Strep 05/23/18 21:05 Blood - Peripheral Aerobic Blood Culture - Preliminary No growth in 2 days 05/23/18 21:05 Blood - Peripheral Anaerobic Blood Culture - Preliminary No growth in 2 days 05/23/18 21:10 Blood - Peripheral Aerobic Blood Culture - Preliminary No growth in 2 days 05/23/18 21:10 Blood - Peripheral Anaerobic Blood Culture - Preliminary No growth in 2 days - Imaging Impressions Aorta w/Runoff CTA 05/24/18 00:00 CONCLUSION: 1. Extensive serpiginous edema below the knee on the right and to a lesser degree on the left. There is excellent three-vessel runoff to the left ankle and on the right side blood vessels are patent although it down to trifurcation past the popliteal artery. Below the knee there is dampened flow probably due to extrinsic mass effect from significant edema in the surrounding soft tissues without definite focal stenosis for technique. Venous Doppler Study 05/25/18 00:00 CONCLUSION: 1. No deep venous thrombosis. 2. Decreasing fluid collection right leg. Assessment and Plan - Assessment (1) Edema of right lower leg due to peripheral venous insufficiency Code(s): I87.2 - Venous insufficiency (chronic) (peripheral); R60.0 - Localized edema Status: Acute (2) Uncontrolled diabetes mellitus Code(s): E11.65 - Type 2 diabetes mellitus with hyperglycemia Status: Acute - Plan Completed MRI : no abscess Recommend Unna boot right , change q 2 days. OK to d/c per Podiatry and with Home Health Care for unna boot changes q 2 days. F/U with Dr Maravilla with in 1 week of d/c (2) Uncontrolled diabetes mellitus Qualifiers: Diabetes mellitus type: type 2 Glycemic state: with hyperglycemia Qualified Code(s): E11.65 - Type 2 diabetes mellitus with hyperglycemia
[2018-05-25] MEDS: Heparin - SQ 10,000 UNITS/ML Vial SQ SCH (20:39)
[2018-05-25] MEDS ORDERED: Insulin Detemir Inj 1,000 UNIT/10 ML Vial SQ SCH (21:00)
[2018-05-26] MEDS: Sod Chloride 0.9% Inj 1,000 ML IV.CONT SCH ×3 (01:22→17:43)
[2018-05-26] MEDS: Piperacil/Tazo 3.375 GM Premix 50 ML IV.SIG SCH ×4 (03:21→21:32)
[2018-05-26] MEDS: Vancomycin Inj 1,750 MG in Sodium Chlor 0.9% Inj 500 ML IV.SIG SCH (05:00)
[2018-05-26] MEDS ORDERED: Pharmacy Ordered Lab Info OTHER ONE (05:45)
[2018-05-26 07:21] LABS: Hematocrit 26.7 % (35.0-46.0); Hemoglobin 8.6 gm/dL (11.6-15.3); Mean Corpuscular HGB Conc 32.1 % (32.0-36.0); Mean Corpuscular Hemoglobin 25.1 pg (27.0-34.0); Mean Corpuscular Volume 78.1 fL (80.0-100.0); Mean Platelet Volume 8.7 fL (7.0-11.0); Platelet Count 309 th/mm3 (150-450); Red Blood Count 3.41 mil/mm3 (4.00-5.30); Red Cell Distribution Width 16.9 % (11.6-17.2); White Blood Count 12.8 th/mm3 (4.0-11.0)
[2018-05-26 07:59] LABS: Calcium 7.6 mg/dL (8.5-10.1); Carbon Dioxide 21.8 meq/L (21.0-32.0)
[2018-05-26 08:13] LABS: Vancomycin,Trough 25.3 mcg/mL (5.0-10.0)
[2018-05-26 08:15] LABS: Potassium 2.9 meq/L (3.5-5.1)
[2018-05-26] MEDS: Insulin NovoLOG Aspart Correctional Sugar Inj SQ SCH ×4 (09:16→20:50)
[2018-05-26] MEDS: Heparin - SQ 10,000 UNITS/ML Vial SQ SCH ×2 (09:17→20:50)
[2018-05-26] MEDS ORDERED: Insulin Detemir Inj 1,000 UNIT/10 ML Vial SQ SCH (09:30)
[2018-05-26] MEDS ORDERED: Potassium Chloride 25 MEQ Effervescent Tablet PO ONE (09:30)
[2018-05-26] MEDS ORDERED: Magnesium Sulfate Inj 2 GM in Sodium Chlor 0.9% Inj 96 ML IV.SIG ONE (10:00)
[2018-05-26 11:52] LABS: Magnesium 1.9 mg/dL (1.5-2.5)
[2018-05-26 12:00] LABS: Phosphorus 1.9 mg/dL (2.5-4.9); Thyroid Stimulating Hormone 1.7 uIU/mL (0.358-3.740)
--- NOTE | 2018-05-26 15:22 | P.PNWCN ---
Wound Care Nurse Consult Description: Received wound management consult for R lower leg unna boot with changes every [address] from [address] Maravilla. Communicated with: IRAM Hoffman [address] [place] [address] and Yulissa Called Doctor Renita at [phone]. Another call placed to Doctor Maravilla at [phone]. Spoke to Doctor at [phone] Recommendation: Please leave R lower leg open to air and change ultrasorb under patient as needed if saturated. Wound/Pressure Injury - Wound Right Lower Leg Wound Assessment: Ongoing Wound Type: Abscess Is This a Chronic Wound: No Requested from Provider a Wound Care Consult: Yes Wound Bed Appearance: Edematous Surrounding Tissue Appearance: Edematous, Weeping Surrounding Tissue Temperature: Hot Drainage Description: Rust/ moreno colored thick purlent drainage Drainage Amount: Copious Drainage Odor: Slight Odor Dressing Status: Open to Air - Additional Information Attempted to apply Jimenez boot to R lower leg as ordered by Doctor Maravilla. Cleansed patient's leg before, attempting to apply Jimenez boot, Patient noted with indurated erythematous area on R lower leg measuring ~13cmx ~13 cm with pustule in center. As rewriter was cleansing leg pustule erupted and was draining copious amounts of moreno/ rust colored thick purulent drainage with slight foul odor. Periwound presents with macerated peeling skin, that has peeling away to reveal partial thickness skin loss. Leg was patted dry and is still oozing with fragile macerated skin to periwound. Applied skin barrier film to periwound skin and left open to air. IRAM Duenas placed call to Doctor Maravilla to notify. At This time will await Doctor's response, before applying Jimenez boot with new findings. Will leave RLE open to air at this time on ultrasorb pad allowing it to drain and periwound skin to dry out.
[2018-05-26 15:38] LABS: Hemoglobin A1c 14.8 % (4.3-6.0)
--- NOTE | 2018-05-26 17:23 | P.PNIM ---
Subjective Interval history: 43 y/o female with a history of uncontrolled diabetes for over 10 years (does not see a pcp) presented to the ED with complaints of right lower leg wound. She states the sore on her right lower leg opened up this past week and started draining brown fluid. She has associated decreased appetite and nausea. Denies any fever or chills at home.She states she has not been able to control her diabetes with diet and exercise and does not see a pcp due to insurance issues. 9-3 Follow-up visit right lower extremity wound with abscess, cellulitis, uncontrolled diabetes, morbid obesity. Patient seen and examined today. Reports she has not been taking any medications for diabetes for 10 years. States that she has abused her body by eating and drinking like she does not care and also heavily on soda. States that wound has been with her for quite some time however she has been feeling weak, wound started to weep and leak. Denies any fevers, chills, nausea, vomiting, diarrhea. Denies chest pain, palpitations, headaches, dizziness. Podiatry Dr. Craft that at the bedside, discussed with patient plan for MRI, CT runoff of the right lower extremity secondary to wound, abscess to assess for plan for either surgical intervention in the OR or bedside I&D pending MRI. 9-4 Follow-up visit right lower extremity wound with abscess, cellulitis, uncontrolled diabetes, morbid obesity. Patient indicates significant pain to the right leg. She is not very hungry, has occasional nausea, no vomiting. Blood sugars have been elevated up to 300s. Patient has been noncompliant for many years and was not aware of the damage she was causing her body. She is interested in talking to the life skills educator. Indicates that this is a wake- up call. No fever overnight, no chills. No chest pain, no palpitations, no diarrhea. 9-5 RIGHT LEG WITH DRAINAGE AND WEAKNESS NOT ABLE TO HAVE HHC OR UNABOOT PLACED DUE TO WOUND ON RIGHT LE SWITCH TO NPH INSULIN DC LEVEMIR Physical Exam Vital signs: Vital Signs 05/25/18 17:10 05/25/18 18:20 05/25/18 20:00 Temperature 98.2 F 98.3 F Pulse Rate 95 H 93 H 86 Respiratory Rate 20 18 Blood Pressure 176/79 H 143/80 H Pulse Oximetry 99 98 05/26/18 00:00 05/26/18 04:00 05/26/18 08:00 Temperature 98.9 F 99.5 F 99.2 F Pulse Rate 92 H 93 H 98 H Respiratory Rate 18 18 18 Blood Pressure 134/72 131/75 162/83 H Pulse Oximetry 97 97 99 05/26/18 12:00 05/26/18 16:00 Temperature 98.8 F Pulse Rate 95 H 84 Respiratory Rate 18 Blood Pressure 141/75 H Pulse Oximetry 97 Intake & Output 05/25/18 05/26/18 05/26/18 18:59 06:59 18:59 Intake Total 1567.5 / 1567.5 1849 / 1849 788.5 / 788.5 Output Total 2 / 2 Balance 1565.5 / 1565.5 1849 / 1849 788.5 / 788.5 Weight 198.7 kg Intake: IV 1567.5 / 1567.5 1609 / 1609 788.5 / 788.5 NS Inj 1,000 ML @ 100 mls/hr IV 1000 / 1000 1308 / 1308 272 / 272 .CONT .Q10H [facility] Rx#:[id number] Magnesium Sulfate Inj 2 GM In 100 / 100 NS Inj 96 ML @ 50 mls/hr IV.SIG ONCE ONE Rx#:[id number] Zosyn 3.375 GM Premix 50 ML @ 50 / 50 150 / 150 50 / 50 100 mls/hr IV.SIG Q6H [facility] Rx#: [id number] Vancomycin Inj 1,750 MG In NS 517.5 / 517.5 151 / 151 366.5 / 366.5 Inj 500 ML @ 250 mls/hr IV.SIG Q18H [facility] Rx#:[id number] Oral 240 / 240 Output: Urine Stool Other: # Voids 3 Date of Last Bowel Movement 05/25/18 Narrative: GENERAL: obese, well-developed patient, in no apparent distress. SKIN: Warm and dry. HEENT: Normocephalic. Pupils equal round and reactive. Nose without bleeding. Airway patent. NECK: Trachea midline. No JVD. Supple. CARDIOVASCULAR: Regular rate and rhythm without murmurs, gallops, or rubs. RESPIRATORY: Clear to auscultation. Breath sounds equal bilaterally. No wheezes , rales, or rhonchi. GASTROINTESTINAL: Abdomen soft, non-tender, nondistended. Bowel Sounds normoactive x4. MUSCULOSKELETAL: Extremities without clubbing, cyanosis. Right lower extremity edema +3, possible underlying lymphedema, wound weeping, skin sloughing off around right calf. Erythema of entire LLE including mid thigh are. Midthigh inner lateral side with wound opening, serous fluid drain, scant amt. LLE edema +1 Venous discoloration noted to right lower extremity. NEUROLOGICAL: Awake and alert. Oriented to time, place, person. No focal neuro deficit. Moves all extremities, RLE weaker. Normal speech. Results - Labs CBC & Chem 7: 05/26/18 06:35 05/26/18 06:35 Laboratory Results - last 24 hr 05/26/18 05/26/18 05/26/18 06:35 06:35 06:35 WBC 12.8 H RBC 3.41 L Hgb 8.6 L Hct 26.7 L MCV 78.1 L MCH 25.1 L MCHC 32.1 RDW 16.9 Plt Count 309 MPV 8.7 Sodium 137 Potassium 2.9 L* Chloride 102 Carbon Dioxide 21.8 Anion Gap 13 BUN 9 Creatinine 1.30 H Estimated GFR 54 L POC Glucose Random Glucose 192 H Hemoglobin A1c 14.8 H Calcium 7.6 L Phosphorus Magnesium TSH Free T4 Vancomycin Trough 25.3 H 05/26/18 05/26/18 05/26/18 06:35 06:35 11:51 WBC RBC Hgb Hct MCV MCH MCHC RDW Plt Count MPV Sodium Potassium Chloride Carbon Dioxide Anion Gap BUN Creatinine Estimated GFR POC Glucose 213 H Random Glucose Hemoglobin A1c Calcium Phosphorus 1.9 L Magnesium 1.9 TSH 1.700 Free T4 1.20 Vancomycin Trough 05/26/18 16:54 WBC RBC Hgb Hct MCV MCH MCHC RDW Plt Count MPV Sodium Potassium Chloride Carbon Dioxide Anion Gap BUN Creatinine Estimated GFR POC Glucose 243 H Random Glucose Hemoglobin A1c Calcium Phosphorus Magnesium TSH Free T4 Vancomycin Trough Microbiology 05/23/18 21:05 Blood - Peripheral Aerobic Blood Culture - Preliminary No growth in 3 days 05/23/18 21:05 Blood - Peripheral Anaerobic Blood Culture - Preliminary No growth in 3 days 05/23/18 21:10 Blood - Peripheral Aerobic Blood Culture - Preliminary No growth in 3 days 05/23/18 21:10 Blood - Peripheral Anaerobic Blood Culture - Preliminary No growth in 3 days 05/24/18 18:02 Abscess - Leg Gram Stain - Final 05/24/18 18:02 Abscess - Leg Wound Culture - Final Group B beta Strep Myra albicans - Imaging Soft Tissue Ultrasound 05/23/18 20:47 CONCLUSION: 1. Complex fluid collection may be inflammatory/infectious process or posttraumatic and appears nonspecific. Aorta w/Runoff CTA 05/24/18 00:00 CONCLUSION: 1. Extensive serpiginous edema below the knee on the right and to a lesser degree on the left. There is excellent three-vessel runoff to the left ankle and on the right side blood vessels are patent although it down to trifurcation past the popliteal artery. Below the knee there is dampened flow probably due to extrinsic mass effect from significant edema in the surrounding soft tissues without definite focal stenosis for technique. Lower Extremity MRI 05/24/18 00:00 CONCLUSION: 1. Diffuse subcutaneous edema, nonorganized fluid and skin thickening characteristic of cellulitis and inflammation without obvious abscess. Venous Doppler Study 05/25/18 00:00 CONCLUSION: 1. No deep venous thrombosis. 2. Decreasing fluid collection right leg. Assessment and Plan - Assessment (1) Left leg cellulitis Code(s): L03.116 - Cellulitis of left lower limb Status: Acute (2) Sepsis Code(s): A41.9 - Sepsis, unspecified organism Status: Acute (3) Uncontrolled diabetes mellitus Code(s): E11.65 - Type 2 diabetes mellitus with hyperglycemia Status: Acute (4) Obesity Code(s): E66.9 - Obesity, unspecified Status: Chronic (5) BELEM (acute kidney injury) Code(s): N17.9 - Acute kidney failure, unspecified Status: Acute (6) Non-compliance Code(s): Z91.19 - Patient's noncompliance with other medical treatment and regimen Status: Chronic - Plan 43 y/o female with a history of uncontrolled diabetes for over 10 years (does not see a pcp) presented to the ED with complaints of right lower leg wound. Sepsis, wbc 18.5, HR 110, source Cellulitis with possible abscess US reviewed and shows a complex fluid collection measures almost 5.3 cm in size in the lower calf medially, infectious vs inflammatory. -Appreciate podiatry input -Imaging studies reviewed-no obvious abscess, adequate blood flow. -US right leg - DVT -IV antibiotics Zosyn and Vancomycin -Pain management with IV morphine and [place] -Cultures growing B beta strep Hyperglycemia, in patient with chronic uncontrolled diabetes -A1C 15.1 -Accu checks with SSI -Blood glucose 300s, will change to Levemir 15 units SQ BID -personal development educator input appreciated. Pt. will need insulin on discharge. Acute kidney injury, creatine 1.2, unknown baseline, maybe chronic due to history of uncontrolled diabetes Improving. -Cont IVF -Trend creatine, improving -avoid nephrotoxins HYPOKALEMIA WILL REPLACE Obesity -needs to lose weight, d/w pt. States she needs to change diet at home. DVT prophylaxis: Heparin SQ D/W RN, CM. Will f/u on podiatry recommendations. ASHWIN BOOT PER PODIATRY--NOT ABLE TO BE DONE PER [facility] Poss need HHC, wound care. NEEDS DIABETIC EDUCATION Code Status: FULL CODE Discussed Condition With: RN AND PT AND CM Discharge Planning: PENDING IMPROVEMENT (2) Sepsis Qualifiers: Sepsis type: sepsis due to unspecified organism Qualified Code(s): A41.9 - Sepsis, unspecified organism (3) Uncontrolled diabetes mellitus Qualifiers: Diabetes mellitus type: type 2 Glycemic state: with hyperglycemia Qualified Code(s): E11.65 - Type 2 diabetes mellitus with hyperglycemia (4) Obesity Qualifiers: Obesity type: due to excess calories
[2018-05-26] MEDS ORDERED: Pharmacy Ordered Lab Info OTHER SCH (23:45)
[2018-05-27] MEDS: Sod Chloride 0.9% Inj 1,000 ML IV.CONT SCH ×5 (00:26→18:02)
[2018-05-27] MEDS: Vancomycin Inj 1,750 MG in Sodium Chlor 0.9% Inj 500 ML IV.SIG SCH (01:01)
[2018-05-27] MEDS: Piperacil/Tazo 3.375 GM Premix 50 ML IV.SIG SCH ×4 (04:18→21:32)
[2018-05-27 07:27] LABS: Baso # (Auto) 0.1 th/mm3 (0.0-0.2); Baso % (Auto) 0.4 % (0.0-2.0); Eos # (Auto) 0.1 th/mm3 (0.0-0.4); Hemoglobin 8.5 gm/dL (11.6-15.3); Lymph % (Auto) 8.6 % (9.0-44.0); Mean Corpuscular HGB Conc 31.5 % (32.0-36.0); Mean Corpuscular Hemoglobin 25.3 pg (27.0-34.0); Mean Corpuscular Volume 80.3 fL (80.0-100.0); Mean Platelet Volume 8.7 fL (7.0-11.0); Mono % (Auto) 8.8 % (0.0-8.0); Neut # (Auto) 9.2 th/mm3 (1.8-7.7); Neut % (Auto) 81.2 % (16.0-70.0); Platelet Count 311 th/mm3 (150-450); Red Blood Count 3.36 mil/mm3 (4.00-5.30); Red Cell Distribution Width 16.8 % (11.6-17.2); White Blood Count 11.3 th/mm3 (4.0-11.0)
[2018-05-27 07:59] LABS: Albumin 1.6 g/dL (3.4-5.0); Anion Gap 11 meq/L (5-15); Blood Urea Nitrogen 10 mg/dL (7-18); Calcium 7.6 mg/dL (8.5-10.1); Chloride 104 meq/L (98-107); Glomerular Filtration Rate 44 mL/min (>89); Glucose,Random 211 mg/dL (74-106); Magnesium 2.3 mg/dL (1.5-2.5); Potassium 3.1 meq/L (3.5-5.1); Sodium 137 meq/L (136-145)
[2018-05-27 08:00] LABS: Alanine Aminotransferase 17 U/L (10-53); Aspartate Aminotransferase 16 U/L (15-37); Phosphorus 2.3 mg/dL (2.5-4.9)
[2018-05-27 08:03] LABS: Alkaline Phosphatase 102 U/L (45-117); Total Protein 7.7 g/dL (6.4-8.2)
--- NOTE | 2018-05-27 08:29 | P.PNPOD ---
Subjective Interval history: Late entry Patient seen 05/26/18 Pain in the right leg is about the same. Physical Exam Vital signs: Vital Signs 05/26/18 12:00 05/26/18 16:00 05/26/18 20:00 Temperature 98.8 F 101.5 F H 98.1 F Pulse Rate 95 H 90 87 Respiratory Rate 18 18 18 Blood Pressure 141/75 H 143/76 H 138/74 Pulse Oximetry 97 98 96 05/27/18 00:00 05/27/18 04:00 Temperature 98.6 F 99.6 F Pulse Rate 91 H 92 H Respiratory Rate 18 18 Blood Pressure 163/81 H 141/71 H Pulse Oximetry 99 97 Intake & Output 05/26/18 05/27/18 05/27/18 18:59 06:59 18:59 Intake Total 1258.5 / 1258.5 1549.5 / 1549.5 Balance 1258.5 / 1258.5 1549.5 / 1549.5 Weight 149 kg Intake: IV 1258.5 / 1258.5 1309.5 / 1309.5 NS Inj 1,000 ML @ 100 mls/hr IV 692 / 692 692 / 692 .CONT .Q10H [facility] Rx#:[id number] Magnesium Sulfate Inj 2 GM In 100 / 100 NS Inj 96 ML @ 50 mls/hr IV.SIG ONCE ONE Rx#:[id number] Zosyn 3.375 GM Premix 50 ML @ 100 / 100 100 / 100 100 mls/hr IV.SIG Q6H [facility] Rx#: [id number] Vancomycin Inj 1,750 MG In NS 366.5 / 366.5 517.5 / 517.5 Inj 500 ML @ 250 mls/hr IV.SIG Q18H [facility] Rx#:[id number] Oral 240 / 240 Other: # Voids 2 2 Narrative: RLE + 3 swelling, no streaking. No active drainage. very tender. Medications and Allergies Active Medications: Active Medications Acetaminophen (Tylenol) 650 mg PO Q4H PRN PRN Reason: Temp > 100.4, MAIN, Pain1-2 Last Admin: 05/26/18 18:37 Dose: 650 mg Hydrocodone Bitart/Acetaminophen ([place] 7.5/325) 1 tab PO Q4H PRN PRN Reason: Pain 7-10 Last Admin: 05/27/18 02:26 Dose: 1 tab Hydrocodone Bitart/Acetaminophen ([place] 5/325) 1 tab PO Q4H PRN PRN Reason: Pain 3-6 Last Admin: 05/25/18 17:51 Dose: 1 tab Dextrose (D50w Vial) 50 ml IV.PUSH UNSCH PRN PRN Reason: PER HYPOGLYCEMIA PROTOCOL Glucagon (Glucagon Inj) 1 mg OTHER PRN PRN PRN Reason: for Hypoglycemia Protocol Heparin Sodium (Porcine) (Heparin Inj) 5,000 units SQ Q12HR [facility] Last Admin: 05/26/18 20:50 Dose: 5,000 units Sodium Chloride (Ns Inj) 1,000 mls @ 100 mls/hr IV.CONT .Q10H [facility] Last Admin: 05/27/18 02:27 Dose: 100 mls/hr Piperacillin/Tazobactam/Dextrose (Zosyn 3.375 Gm Premix) 50 mls @ 100 mls/hr IV.SIG Q6H [facility] Last Infusion: 05/27/18 04:50 Dose: Infused Vancomycin HCl 1,750 mg/ (Sodium Chloride) 517.5 mls @ 250 mls/hr IV.SIG Q18H [facility] Last Infusion: 05/27/18 04:23 Dose: Infused Insulin Aspart (Novolog Insulin Correctional Sugar Inj) 0 unit SQ ACHS [facility]; Protocol Last Admin: 05/26/18 20:50 Dose: 700 unit Insulin Human NPH (Novolin N Inj) 18 units SQ BID@0800,1700 [facility] Miscellaneous Information ([facility] Ordered Lab Info) 1 each OTHER ONCE [facility] Morphine Sulfate (Morphine Inj) 2 mg IV.PUSH Q4H PRN PRN Reason: BREAKTHROUGH PAIN Last Admin: 05/24/18 05:26 Dose: 2 mg Ondansetron HCl (Zofran Inj) 4 mg IV.PUSH Q6H PRN PRN Reason: NAUSEA OR VOMITING Last Admin: 05/24/18 23:23 Dose: 4 mg Pharmacy Profile Note (Vancomycin Consult Pharmacy) 1 each OTHER UNSCH PRN PRN Reason: Pharmacy to dose Sodium Chloride (Ns Flush) 2 ml IV.FLUSH PRN PRN PRN Reason: FLUSH AFTER USING IV ACCESS Allergies Allergy/AdvReac Type Severity Reaction Status Date / Time No Known Allergies Allergy Verified 05/23/18 18:39 Home Medications Medication Instructions Recorded Confirmed Type No Known Home Medications 05/23/18 05/23/18 History Results - Labs CBC & Chem 7: 05/27/18 05:35 05/27/18 05:35 Laboratory Results - last 24 hr 05/26/18 05/26/18 05/26/18 06:35 06:35 06:35 WBC RBC Hgb Hct MCV MCH MCHC RDW Plt Count MPV Neut % (Auto) Lymph % (Auto) Smith % (Auto) Eos % (Auto) Baso % (Auto) Neut # (Auto) Lymph # (Auto) Smith # (Auto) Eos # (Auto) Baso # (Auto) WBC Differential Differential Comment Sodium Potassium Chloride Carbon Dioxide Anion Gap BUN Creatinine Estimated GFR POC Glucose Random Glucose Hemoglobin A1c 14.8 H Calcium Phosphorus 1.9 L Magnesium 1.9 Total Bilirubin AST ALT Alkaline Phosphatase Total Protein Albumin TSH 1.700 Free T4 1.20 Vancomycin Trough 05/26/18 05/26/18 05/26/18 11:51 16:54 19:49 WBC RBC Hgb Hct MCV MCH MCHC RDW Plt Count MPV Neut % (Auto) Lymph % (Auto) Smith % (Auto) Eos % (Auto) Baso % (Auto) Neut # (Auto) Lymph # (Auto) Smith # (Auto) Eos # (Auto) Baso # (Auto) WBC Differential Differential Comment Sodium Potassium Chloride Carbon Dioxide Anion Gap BUN Creatinine Estimated GFR POC Glucose 213 H 243 H 267 H Random Glucose Hemoglobin A1c Calcium Phosphorus Magnesium Total Bilirubin AST ALT Alkaline Phosphatase Total Protein Albumin TSH Free T4 Vancomycin Trough 05/26/18 05/27/18 05/27/18 23:45 05:35 05:35 WBC 11.3 H RBC 3.36 L Hgb 8.5 L Hct 27.0 L MCV 80.3 MCH 25.3 L MCHC 31.5 L RDW 16.8 Plt Count 311 MPV 8.7 Neut % (Auto) 81.2 H Lymph % (Auto) 8.6 L Smith % (Auto) 8.8 H Eos % (Auto) 1.0 Baso % (Auto) 0.4 Neut # (Auto) 9.2 H Lymph # (Auto) 1.0 Smith # (Auto) 1.0 H Eos # (Auto) 0.1 Baso # (Auto) 0.1 WBC Differential . Differential Comment Auto diff final Sodium 137 Potassium 3.1 L Chloride 104 Carbon Dioxide 22.0 Anion Gap 11 BUN 10 Creatinine 1.55 H Estimated GFR 44 L POC Glucose Random Glucose 211 H Hemoglobin A1c Calcium 7.6 L Phosphorus 2.3 L Magnesium 2.3 Total Bilirubin 0.3 AST 16 ALT 17 Alkaline Phosphatase 102 Total Protein 7.7 D Albumin 1.6 L TSH Free T4 Vancomycin Trough 11.1 H Microbiology 05/23/18 21:05 Blood - Peripheral Aerobic Blood Culture - Preliminary No growth in 3 days 05/23/18 21:05 Blood - Peripheral Anaerobic Blood Culture - Preliminary No growth in 3 days 05/23/18 21:10 Blood - Peripheral Aerobic Blood Culture - Preliminary No growth in 3 days 05/23/18 21:10 Blood - Peripheral Anaerobic Blood Culture - Preliminary No growth in 3 days 05/24/18 18:02 Abscess - Leg Gram Stain - Final 05/24/18 18:02 Abscess - Leg Wound Culture - Final Group B beta Strep Myra albicans Assessment and Plan - Assessment (1) Edema of right lower leg due to peripheral venous insufficiency Code(s): I87.2 - Venous insufficiency (chronic) (peripheral); R60.0 - Localized edema Status: Acute (2) Uncontrolled diabetes mellitus Code(s): E11.65 - Type 2 diabetes mellitus with hyperglycemia Status: Acute - Plan Completed MRI : no abscess Recommend Unna boot right , change q d days. Dr Soto will follow form 05/27/18 (2) Uncontrolled diabetes mellitus Qualifiers: Diabetes mellitus type: type 2 Glycemic state: with hyperglycemia Qualified Code(s): E11.65 - Type 2 diabetes mellitus with hyperglycemia
[2018-05-27] MEDS: Heparin - SQ 10,000 UNITS/ML Vial SQ SCH ×2 (09:12→21:32)
[2018-05-27] MEDS: Insulin NovoLOG Aspart Correctional Sugar Inj SQ SCH ×4 (09:14→21:33)
--- NOTE | 2018-05-27 13:02 | P.PNIM ---
Subjective Interval history: 43 y/o female with a history of uncontrolled diabetes for over 10 years (does not see a pcp) presented to the ED with complaints of right lower leg wound. She states the sore on her right lower leg opened up this past week and started draining brown fluid. She has associated decreased appetite and nausea. Denies any fever or chills at home.She states she has not been able to control her diabetes with diet and exercise and does not see a pcp due to insurance issues. 9-3 Follow-up visit right lower extremity wound with abscess, cellulitis, uncontrolled diabetes, morbid obesity. Patient seen and examined today. Reports she has not been taking any medications for diabetes for 10 years. States that she has abused her body by eating and drinking like she does not care and also heavily on soda. States that wound has been with her for quite some time however she has been feeling weak, wound started to weep and leak. Denies any fevers, chills, nausea, vomiting, diarrhea. Denies chest pain, palpitations, headaches, dizziness. Podiatry Dr. Craft that at the bedside, discussed with patient plan for MRI, CT runoff of the right lower extremity secondary to wound, abscess to assess for plan for either surgical intervention in the OR or bedside I&D pending MRI. 9-4 Follow-up visit right lower extremity wound with abscess, cellulitis, uncontrolled diabetes, morbid obesity. Patient indicates significant pain to the right leg. She is not very hungry, has occasional nausea, no vomiting. Blood sugars have been elevated up to 300s. Patient has been noncompliant for many years and was not aware of the damage she was causing her body. She is interested in talking to the electrician constructor supervisor. Indicates that this is a wake- up call. No fever overnight, no chills. No chest pain, no palpitations, no diarrhea. 9-5 RIGHT LEG WITH DRAINAGE AND WEAKNESS NOT ABLE TO HAVE HHC OR UNABOOT PLACED DUE TO WOUND ON RIGHT LE SWITCH TO NPH INSULIN DC LEVEMIR 9-6 INCREASE NPH TO 20 UNITS SUBQ BID REPLACE POTASSIUM ORALLY AM LABS DW RN AND PT AND CM WOUND CARE PER PODIATRY Physical Exam Vital signs: Vital Signs 05/26/18 16:00 05/26/18 20:00 05/27/18 00:00 Temperature 101.5 F H 98.1 F 98.6 F Pulse Rate 90 87 91 H Respiratory Rate 18 Blood Pressure 143/76 H 138/74 163/81 H Pulse Oximetry 98 96 99 05/27/18 04:00 05/27/18 08:00 05/27/18 12:00 Temperature 99.6 F 98.3 F 98.4 F Pulse Rate 92 H 96 H 100 H Respiratory Rate 17 Blood Pressure 141/71 H 152/70 H 157/77 H Pulse Oximetry 97 100 98 Intake & Output 05/26/18 05/27/18 05/27/18 18:59 06:59 18:59 Intake Total 1258.5 / 1258.5 1549.5 / 1549.5 550 / 550 Balance 1258.5 / 1258.5 1549.5 / 1549.5 550 / 550 Weight 149 kg Intake: IV 1258.5 / 1258.5 1309.5 / 1309.5 550 / 550 NS Inj 1,000 ML @ 100 mls/hr IV 692 / 692 692 / 692 500 / 500 .CONT .Q10H [facility] Rx#:[id number] Magnesium Sulfate Inj 2 GM In 100 / 100 NS Inj 96 ML @ 50 mls/hr IV.SIG ONCE ONE Rx#:[id number] Zosyn 3.375 GM Premix 50 ML @ 100 / 100 100 / 100 50 / 50 100 mls/hr IV.SIG Q6H [facility] Rx#: [id number] Vancomycin Inj 1,750 MG In NS 366.5 / 366.5 517.5 / 517.5 Inj 500 ML @ 250 mls/hr IV.SIG Q18H [facility] Rx#:[id number] Oral 240 / 240 Other: # Voids 2 2 Date of Last Bowel Movement 05/27/18 Narrative: GENERAL: obese, well-developed patient, in no apparent distress. SKIN: Warm and dry. HEENT: Normocephalic. Pupils equal round and reactive. Nose without bleeding. Airway patent. NECK: Trachea midline. No JVD. Supple. CARDIOVASCULAR: Regular rate and rhythm without murmurs, gallops, or rubs. RESPIRATORY: Clear to auscultation. Breath sounds equal bilaterally. No wheezes , rales, or rhonchi. GASTROINTESTINAL: Abdomen soft, non-tender, nondistended. Bowel Sounds normoactive x4. MUSCULOSKELETAL: Extremities without clubbing, cyanosis. Right lower extremity edema +4, possible underlying lymphedema, wound weeping, skin sloughing off around right calf. Erythema of entire LLE including mid thigh are. Midthigh inner lateral side with wound opening, serous fluid drain, scant amt. LLE edema +1 Venous discoloration noted to right lower extremity. NEUROLOGICAL: Awake and alert. Oriented to time, place, person. No focal neuro deficit. Moves all extremities, RLE weaker. Normal speech. Results - Labs CBC & Chem 7: 05/27/18 05:35 05/27/18 05:35 Laboratory Results - last 24 hr 05/26/18 05/26/18 05/26/18 06:35 16:54 19:49 WBC RBC Hgb Hct MCV MCH MCHC RDW Plt Count MPV Neut % (Auto) Lymph % (Auto) [place] % (Auto) Eos % (Auto) Baso % (Auto) Neut # (Auto) Lymph # (Auto) [place] # (Auto) Eos # (Auto) Baso # (Auto) WBC Differential Differential Comment Sodium Potassium Chloride Carbon Dioxide Anion Gap BUN Creatinine Estimated GFR POC Glucose 243 H 267 H Random Glucose Hemoglobin A1c 14.8 H Calcium Phosphorus Magnesium Total Bilirubin AST ALT Alkaline Phosphatase Total Protein Albumin Vancomycin Trough 05/26/18 05/27/18 05/27/18 23:45 05:35 05:35 WBC 11.3 H RBC 3.36 L Hgb 8.5 L Hct 27.0 L MCV 80.3 MCH 25.3 L MCHC 31.5 L RDW 16.8 Plt Count 311 MPV 8.7 Neut % (Auto) 81.2 H Lymph % (Auto) 8.6 L [place] % (Auto) 8.8 H Eos % (Auto) 1.0 Baso % (Auto) 0.4 Neut # (Auto) 9.2 H Lymph # (Auto) 1.0 [place] # (Auto) 1.0 H Eos # (Auto) 0.1 Baso # (Auto) 0.1 WBC Differential . Differential Comment Auto diff final Sodium 137 Potassium 3.1 L Chloride 104 Carbon Dioxide 22.0 Anion Gap 11 BUN 10 Creatinine 1.55 H Estimated GFR 44 L POC Glucose Random Glucose 211 H Hemoglobin A1c Calcium 7.6 L Phosphorus 2.3 L Magnesium 2.3 Total Bilirubin 0.3 AST 16 ALT 17 Alkaline Phosphatase 102 Total Protein 7.7 D Albumin 1.6 L Vancomycin Trough 11.1 H Microbiology 05/23/18 21:05 Blood - Peripheral Aerobic Blood Culture - Preliminary No growth in 4 days 05/23/18 21:05 Blood - Peripheral Anaerobic Blood Culture - Preliminary No growth in 4 days 05/23/18 21:10 Blood - Peripheral Aerobic Blood Culture - Preliminary No growth in 4 days 05/23/18 21:10 Blood - Peripheral Anaerobic Blood Culture - Preliminary No growth in 4 days 05/26/18 16:45 Fluid - Other Gram Stain - Final 05/24/18 18:02 Abscess - Leg Gram Stain - Final 05/24/18 18:02 Abscess - Leg Wound Culture - Final Group B beta Strep Myra albicans - Imaging Soft Tissue Ultrasound 05/23/18 20:47 CONCLUSION: 1. Complex fluid collection may be inflammatory/infectious process or posttraumatic and appears nonspecific. Aorta w/Runoff CTA 05/24/18 00:00 CONCLUSION: 1. Extensive serpiginous edema below the knee on the right and to a lesser degree on the left. There is excellent three-vessel runoff to the left ankle and on the right side blood vessels are patent although it down to trifurcation past the popliteal artery. Below the knee there is dampened flow probably due to extrinsic mass effect from significant edema in the surrounding soft tissues without definite focal stenosis for technique. Lower Extremity MRI 05/24/18 00:00 CONCLUSION: 1. Diffuse subcutaneous edema, nonorganized fluid and skin thickening characteristic of cellulitis and inflammation without obvious abscess. Venous Doppler Study 05/25/18 00:00 CONCLUSION: 1. No deep venous thrombosis. 2. Decreasing fluid collection right leg. Assessment and Plan - Assessment (1) Left leg cellulitis Code(s): L03.116 - Cellulitis of left lower limb Status: Acute (2) Sepsis Code(s): A41.9 - Sepsis, unspecified organism Status: Acute (3) Uncontrolled diabetes mellitus Code(s): E11.65 - Type 2 diabetes mellitus with hyperglycemia Status: Acute (4) Obesity Code(s): E66.9 - Obesity, unspecified Status: Chronic (5) BELEM (acute kidney injury) Code(s): N17.9 - Acute kidney failure, unspecified Status: Acute (6) Non-compliance Code(s): Z91.19 - Patient's noncompliance with other medical treatment and regimen Status: Chronic - Plan 43 y/o female with a history of uncontrolled diabetes for over 10 years (does not see a pcp) presented to the ED with complaints of right lower leg wound. Sepsis, wbc 18.5, HR 110, source Cellulitis with possible abscess US reviewed and shows a complex fluid collection measures almost 5.3 cm in size in the lower calf medially, infectious vs inflammatory. -Appreciate podiatry input -Imaging studies reviewed-no obvious abscess, adequate blood flow. -US right leg - DVT -IV antibiotics Zosyn and Vancomycin -Pain management with IV morphine and [place] -Cultures growing B beta strep Hyperglycemia, in patient with chronic uncontrolled diabetes -A1C 15.1 -Accu checks with SSI -Blood glucose 300s, will change to NPH 20 UNITS SUBQ BID -dough maker input appreciated. Pt. will need insulin on discharge. Acute kidney injury, creatine 1.2, unknown baseline, maybe chronic due to history of uncontrolled diabetes Improving. -Cont IVF -Trend creatine, improving -avoid nephrotoxins HYPOKALEMIA WILL REPLACE AGAIN FLUID OVERLOAD IN LEGS WILL GIVE LASIX 20MG PO DAILY Obesity -needs to lose weight, d/w pt. States she needs to change diet at home. DVT prophylaxis: Heparin SQ D/W RN, CM. Will f/u on podiatry recommendations. ASHWIN BOOT PER PODIATRY--NOT ABLE TO BE DONE PER [employer] Poss need HHC, wound care. NEEDS DIABETIC EDUCATION Code Status: FULL CODE Discussed Condition With: RN AND PT AND CM Discharge Planning: PENDING IMPROVEMENT (2) Sepsis Qualifiers: Sepsis type: sepsis due to unspecified organism Qualified Code(s): A41.9 - Sepsis, unspecified organism (3) Uncontrolled diabetes mellitus Qualifiers: Diabetes mellitus type: type 2 Glycemic state: with hyperglycemia Qualified Code(s): E11.65 - Type 2 diabetes mellitus with hyperglycemia (4) Obesity Qualifiers: Obesity type: due to excess calories
[2018-05-27] MEDS: Furosemide 20 MG Tablet PO SCH (13:54)
[2018-05-27] MEDS: Fluconazole 100 MG Tablet PO SCH (13:54)
[2018-05-27] MEDS: Vancomycin Inj 2,250 MG in Sodium Chlor 0.9% Inj 500 ML IV.SIG SCH (18:00)
--- NOTE | 2018-05-27 18:02 | P.PNWCN ---
Wound Care Nurse Consult Description: Patient seen for Jimenez boot application to RLE Communicated with: IRAM esteban Recommendation: Please leave in place, Wound care will change on Thursday05/27/2018. Wound/Pressure Injury - Wound Right Lower Leg Wound Assessment: Ongoing Is This a Chronic Wound: No Surrounding Tissue Appearance: [place], Shiny, Taut, Weeping Surrounding Tissue Temperature: Warm Drainage Description: Serous Drainage Amount: Moderate Drainage Odor: No Odor Dressing Status: Changed Primary Dressing: Unna Boot Cover Dressing: Unna Boot (Jimenez boot with coban) Wound Dressing Change Date: 05/27/18 Wound Margin Description: Poorly defined - Additional Information Patient seen today for Jimenez boot application (unna boot, rolled gauze and Coban) .Jimenez boot applied with Maxorb extra AG covering weeping areas. Patient tolerated procedure well. Incision - Patient Status Premedicated for Pain Prior to Dressing Change: No
[2018-05-28] MEDS: Piperacil/Tazo 3.375 GM Premix 50 ML IV.SIG SCH ×4 (04:06→22:45)
[2018-05-28] MEDS: Sod Chloride 0.9% Inj 1,000 ML IV.CONT SCH (04:10)
[2018-05-28 07:27] LABS: Baso # (Auto) 0.1 th/mm3 (0.0-0.2); Baso % (Auto) 0.6 % (0.0-2.0); Eos # (Auto) 0.2 th/mm3 (0.0-0.4); Eos % (Auto) 1.8 % (0.0-4.0); Hematocrit 28.5 % (35.0-46.0); Hemoglobin 9.2 gm/dL (11.6-15.3); Lymph # (Auto) 1.2 th/mm3 (1.0-4.8); Lymph % (Auto) 12.5 % (9.0-44.0); Mean Corpuscular HGB Conc 32.3 % (32.0-36.0); Mean Corpuscular Hemoglobin 25.4 pg (27.0-34.0); Mean Corpuscular Volume 78.4 fL (80.0-100.0); Mean Platelet Volume 8.6 fL (7.0-11.0); Mono % (Auto) 9.9 % (0.0-8.0); Neut # (Auto) 7.4 th/mm3 (1.8-7.7); Neut % (Auto) 75.2 % (16.0-70.0); Platelet Count 311 th/mm3 (150-450); Red Blood Count 3.64 mil/mm3 (4.00-5.30); Red Cell Distribution Width 16.7 % (11.6-17.2); White Blood Count 9.9 th/mm3 (4.0-11.0)
[2018-05-28 07:58] LABS: Albumin 1.6 g/dL (3.4-5.0); Anion Gap 10 meq/L (5-15); Aspartate Aminotransferase 22 U/L (15-37); Blood Urea Nitrogen 9 mg/dL (7-18); Calcium 7.7 mg/dL (8.5-10.1); Carbon Dioxide 21.1 meq/L (21.0-32.0); Chloride 110 meq/L (98-107); Glomerular Filtration Rate 38 mL/min (>89); Glucose,Random 128 mg/dL (74-106); Magnesium 2.1 mg/dL (1.5-2.5); Sodium 141 meq/L (136-145)
[2018-05-28 07:59] LABS: Alanine Aminotransferase 16 U/L (10-53); Phosphorus 1.7 mg/dL (2.5-4.9)
[2018-05-28 08:01] LABS: Alkaline Phosphatase 110 U/L (45-117); Total Protein 8.1 g/dL (6.4-8.2)
[2018-05-28] MEDS: Heparin - SQ 10,000 UNITS/ML Vial SQ SCH ×2 (10:06→20:08)
[2018-05-28] MEDS: Insulin NovoLOG Aspart Correctional Sugar Inj SQ SCH ×4 (10:07→20:09)
[2018-05-28] MEDS: Furosemide 20 MG Tablet PO SCH (10:07)
--- NOTE | 2018-05-28 11:37 | P.PNIM ---
Subjective Interval history: 43 y/o female with a history of uncontrolled diabetes for over 10 years (does not see a pcp) presented to the ED with complaints of right lower leg wound. She states the sore on her right lower leg opened up this past week and started draining brown fluid. She has associated decreased appetite and nausea. Denies any fever or chills at home.She states she has not been able to control her diabetes with diet and exercise and does not see a pcp due to insurance issues. 9-3 Follow-up visit right lower extremity wound with abscess, cellulitis, uncontrolled diabetes, morbid obesity. Patient seen and examined today. Reports she has not been taking any medications for diabetes for 10 years. States that she has abused her body by eating and drinking like she does not care and also heavily on soda. States that wound has been with her for quite some time however she has been feeling weak, wound started to weep and leak. Denies any fevers, chills, nausea, vomiting, diarrhea. Denies chest pain, palpitations, headaches, dizziness. Podiatry Dr. Craft that at the bedside, discussed with patient plan for MRI, CT runoff of the right lower extremity secondary to wound, abscess to assess for plan for either surgical intervention in the OR or bedside I&D pending MRI. 9-4 Follow-up visit right lower extremity wound with abscess, cellulitis, uncontrolled diabetes, morbid obesity. Patient indicates significant pain to the right leg. She is not very hungry, has occasional nausea, no vomiting. Blood sugars have been elevated up to 300s. Patient has been noncompliant for many years and was not aware of the damage she was causing her body. She is interested in talking to the art educator. Indicates that this is a wake- up call. No fever overnight, no chills. No chest pain, no palpitations, no diarrhea. 9-5 RIGHT LEG WITH DRAINAGE AND WEAKNESS NOT ABLE TO HAVE HHC OR UNABOOT PLACED DUE TO WOUND ON RIGHT LE SWITCH TO NPH INSULIN DC LEVEMIR 9-6 INCREASE NPH TO 20 UNITS SUBQ BID REPLACE POTASSIUM ORALLY AM LABS DW RN AND PT AND CM WOUND CARE PER PODIATRY 9-7 STILL WITH DRAINAGE AND BLEEDING FROM RIGHT LEG NOW CONTINUE ANTIBIOTICS MYRA AND GROUP B STREP REPLACE POTASSIUM AGAIN STOP LASIX AM LABS MONITOR RENAL FUNCTIONS Physical Exam Vital signs: Vital Signs 05/27/18 12:00 05/27/18 16:00 05/27/18 20:00 Temperature 98.4 F 98.8 F 97.7 F Pulse Rate 96 H 96 H 96 H Respiratory Rate 17 19 20 Blood Pressure 157/77 H 154/74 H 145/83 H Pulse Oximetry 98 100 97 05/28/18 00:00 05/28/18 04:00 05/28/18 07:28 Temperature 98.1 F 98.6 F Pulse Rate 94 H 92 H 89 Respiratory Rate 22 20 Blood Pressure 122/85 118/85 Pulse Oximetry 97 100 05/28/18 08:00 Temperature 98.9 F Pulse Rate 89 Respiratory Rate 18 Blood Pressure 139/81 Pulse Oximetry 99 Intake & Output 05/27/18 05/28/18 05/28/18 18:59 06:59 18:59 Intake Total 1820 / 1820 1962.5 / 1962.5 Output Total 2 / 2 Balance 1820 / 1820 1960.5 / 1960.5 Intake: IV 1100 / 1100 1622.5 / 1622.5 NS Inj 1,000 ML @ 100 mls/hr IV 1000 / 1000 1000 / 1000 .CONT .Q10H [facility] Rx#:[id number] Zosyn 3.375 GM Premix 50 ML @ 100 / 100 100 / 100 100 mls/hr IV.SIG Q6H [facility] Rx#: [id number] Vancomycin Inj 2,250 MG In NS 522.5 / 522.5 Inj 500 ML @ 250 mls/hr IV.SIG Q18H [facility] Rx#:[id number] Oral 720 / 720 340 / 340 Output: Urine Stool Other: # Voids 3 2 Date of Last Bowel Movement 05/27/18 05/27/18 05/28/18 # Bowel Movements 1 1 Narrative: GENERAL: obese, well-developed patient, in no apparent distress. SKIN: Warm and dry. HEENT: Normocephalic. Pupils equal round and reactive. Nose without bleeding. Airway patent. NECK: Trachea midline. No JVD. Supple. CARDIOVASCULAR: Regular rate and rhythm without murmurs, gallops, or rubs. RESPIRATORY: Clear to auscultation. Breath sounds equal bilaterally. No wheezes , rales, or rhonchi. GASTROINTESTINAL: Abdomen soft, non-tender, nondistended. Bowel Sounds normoactive x4. MUSCULOSKELETAL: Extremities without clubbing, cyanosis. Right lower extremity edema +4, possible underlying lymphedema, wound weeping, skin sloughing off around right calf. Erythema of entire LLE including mid thigh are. Midthigh inner lateral side with wound opening, serous fluid drain, scant amt. LLE edema +1 Venous discoloration noted to right lower extremity. RIGHT LEG IS DRESSED WITH BLOOD ON THE DRESSINGS NEUROLOGICAL: Awake and alert. Oriented to time, place, person. No focal neuro deficit. Moves all extremities, RLE weaker. Normal speech. Results - Labs CBC & Chem 7: 05/28/18 06:11 05/28/18 06:11 Laboratory Results - last 24 hr 05/27/18 05/28/18 05/28/18 16:46 06:11 06:11 WBC 9.9 RBC 3.64 L Hgb 9.2 L Hct 28.5 L MCV 78.4 L MCH 25.4 L MCHC 32.3 RDW 16.7 Plt Count 311 MPV 8.6 Neut % (Auto) 75.2 H Lymph % (Auto) 12.5 [place] % (Auto) 9.9 H Eos % (Auto) 1.8 Baso % (Auto) 0.6 Neut # (Auto) 7.4 Lymph # (Auto) 1.2 [place] # (Auto) 1.0 H Eos # (Auto) 0.2 Baso # (Auto) 0.1 WBC Differential . Differential Comment Auto diff final Sodium 141 Potassium 3.0 L Chloride 110 H Carbon Dioxide 21.1 Anion Gap 10 BUN 9 Creatinine 1.75 H Estimated GFR 38 L POC Glucose 219 H Random Glucose 128 H Calcium 7.7 L Phosphorus 1.7 L Magnesium 2.1 Total Bilirubin 0.3 AST 22 ALT 16 Alkaline Phosphatase 110 Total Protein 8.1 Albumin 1.6 L Microbiology 05/23/18 21:05 Blood - Peripheral Aerobic Blood Culture - Final No growth in 5 days 05/23/18 21:05 Blood - Peripheral Anaerobic Blood Culture - Final No growth in 5 days 05/23/18 21:10 Blood - Peripheral Aerobic Blood Culture - Final No growth in 5 days 05/23/18 21:10 Blood - Peripheral Anaerobic Blood Culture - Final No growth in 5 days 05/26/18 16:45 Fluid - Other Gram Stain - Final 05/26/18 16:45 Fluid - Other Wound Culture - Final Myra albicans Group B beta Strep Assessment and Plan - Assessment (1) Left leg cellulitis Code(s): L03.116 - Cellulitis of left lower limb Status: Acute (2) Sepsis Code(s): A41.9 - Sepsis, unspecified organism Status: Acute (3) Uncontrolled diabetes mellitus Code(s): E11.65 - Type 2 diabetes mellitus with hyperglycemia Status: Acute (4) Obesity Code(s): E66.9 - Obesity, unspecified Status: Chronic (5) BELEM (acute kidney injury) Code(s): N17.9 - Acute kidney failure, unspecified Status: Acute (6) Non-compliance Code(s): Z91.19 - Patient's noncompliance with other medical treatment and regimen Status: Chronic - Plan 43 y/o female with a history of uncontrolled diabetes for over 10 years (does not see a pcp) presented to the ED with complaints of right lower leg wound. Sepsis, wbc 18.5, HR 110, source Cellulitis with possible abscess US reviewed and shows a complex fluid collection measures almost 5.3 cm in size in the lower calf medially, infectious vs inflammatory. -Appreciate podiatry input -Imaging studies reviewed-no obvious abscess, adequate blood flow. -US right leg - DVT -IV antibiotics Zosyn and Vancomycin -Pain management with IV morphine and [place] -Cultures growing B beta strep Hyperglycemia, in patient with chronic uncontrolled diabetes -A1C 15.1 -Accu checks with SSI -Blood glucose 300s, will change to NPH 20 UNITS SUBQ BID -art educator input appreciated. Pt. will need insulin on discharge. Acute kidney injury, creatine 1.2, unknown baseline, maybe chronic due to history of uncontrolled diabetes Improving. -Cont IVF -Trend creatine, improving -avoid nephrotoxins MONITOR- A LITTLE WORSE MAYBE DUE TO VANCO AND ZOSYN AND LASIX HYPOKALEMIA WILL REPLACE AGAIN--REPLACE AGAIN FLUID OVERLOAD IN LEGS WILL GIVE LASIX 20MG PO Obesity -needs to lose weight, d/w pt. States she needs to change diet at home. DVT prophylaxis: Heparin SQ D/W RN, CM. Will f/u on podiatry recommendations. ASHWIN BOOT PER PODIATRY--NOT ABLE TO BE DONE PER SEALS ENGRA[employer] Poss need HHC, wound care. NEEDS DIABETIC EDUCATION Code Status: FULL CODE Discussed Condition With: RN AND PT AND CM Discharge Planning: PENDING IMPROVEMENT (2) Sepsis Qualifiers: Sepsis type: sepsis due to unspecified organism Qualified Code(s): A41.9 - Sepsis, unspecified organism (3) Uncontrolled diabetes mellitus Qualifiers: Diabetes mellitus type: type 2 Glycemic state: with hyperglycemia Qualified Code(s): E11.65 - Type 2 diabetes mellitus with hyperglycemia (4) Obesity Qualifiers: Obesity type: due to excess calories
[2018-05-28] MEDS: Fluconazole 100 MG Tablet PO SCH (13:04)
[2018-05-28] MEDS: Vancomycin Inj 2,250 MG in Sodium Chlor 0.9% Inj 500 ML IV.SIG SCH (13:05)
--- NOTE | 2018-05-28 18:14 | P.PNWCN ---
Wound Care Nurse Consult Description: Patient seen for Jimenez boot change to RLE Communicated with: IRAM esteban, Kevon esteban, Spoke with Doctor Brittany and she will be seeing the patient. Recommendation: Please leave Jimenez boot (Unnas boot, secured with rolled gauze and coban wrap) With Maxorb Extra AG and optilock dressings in place until podiatry sees or Jimenez boot becomes saturated or dislodged. If dressing becomes saturated or dislodged please remove and leave RLE open to air. Place ultrasorb pad under RLE for drainage control and change as needed. Wound/Pressure Injury - Patient Status Premedicated for Pain Prior to Dressing Change: No - Wound Right Lower Leg Wound Assessment: Ongoing Wound Type: Abscess Is This a Chronic Wound: No Requested from Provider a Wound Care Consult: Yes Length: 13 Width: 13 Wound Bed Appearance: Patient presents with boggy area of intact skin measuring ~13 cm x ~13cm, with two puncture wounds located next to each other and third puncture wound distal on R medial anterior hill. Puncture wounds are draining copious amounts of rust colored/ yellow thick drainage. Periwound presents with peeling macerated skin. Surrounding Tissue Appearance: [place], Shiny, Taut, Weeping Surrounding Tissue Temperature: Warm Drainage Description: Thick yellow/ rust colored drainage Drainage Amount: Copious Drainage Odor: Slight Odor Dressing Status: Changed Cleansing Solution: Saline Primary Dressing: Maxorb Extra AG and optilock dressing Cover Dressing: Unna Boot (Jimenez boot(unna boot, rolled gauze and coban) Tape Type: Paper Wound Dressing Change Date: 05/28/18 Wound Margin Description: Poorly defined - Additional Information Patient seen today for Jimenez boot dressing change (unna boot, rolled gauze and Coban).Upon arrival patient is laying in bed and Jimenez boot is saturated with sanguinous drainage. Removed saturated Jimenez boot to reveal three small open puncture type wounds with an area of boggy intact skin with copius amounts or purulent drainage. Wound description, measurement and recommendations are noted above. Applied Maxorb extra AG over draining puncture type wounds and covered weeping areas or RLE with Optilock both to the anterior and posterior RLE covering maxorb extra AG. Then applied Jimenez boot. Incision - Patient Status Premedicated for Pain Prior to Dressing Change: No
--- NOTE | 2018-05-28 20:49 | P.PNPOD ---
Physical Exam Vital signs: Vital Signs 05/28/18 00:00 05/28/18 04:00 05/28/18 07:28 Temperature 98.1 F 98.6 F Pulse Rate 94 H 92 H 89 Respiratory Rate 22 20 Blood Pressure 122/85 118/85 Pulse Oximetry 97 100 05/28/18 08:00 05/28/18 11:56 05/28/18 12:00 Temperature 98.9 F 98.8 F Pulse Rate 89 87 88 Respiratory Rate 18 18 Blood Pressure 139/81 132/82 Pulse Oximetry 99 96 05/28/18 15:52 05/28/18 16:00 Temperature 98.8 F Pulse Rate 100 H 92 H Respiratory Rate 18 Blood Pressure 137/70 Pulse Oximetry 99 Intake & Output 05/28/18 05/28/18 05/29/18 06:59 18:59 06:59 Intake Total 1962.5 / 1962.5 1372.5 / 1372.5 Output Total 2 / 2 Balance 1960.5 / 1960.5 1372.5 / 1372.5 Intake: IV 1622.5 / 1622.5 1372.5 / 1372.5 NS Inj 1,000 ML @ 100 mls/hr IV 1000 / 1000 .CONT .Q10H [facility] Rx#:[id number] Zosyn 3.375 GM Premix 50 ML @ 100 / 100 100 / 100 100 mls/hr IV.SIG Q6H [facility] Rx#: [id number] Vancomycin Inj 2,250 MG In NS 522.5 / 522.5 522.5 / 522.5 Inj 500 ML @ 250 mls/hr IV.SIG Q18H [facility] Rx#:[id number] Oral 340 / 340 Output: Urine Stool 1 / Other: # Voids 2 Date of Last Bowel Movement 05/27/18 05/28/18 # Bowel Movements 1 Medications and Allergies Active Medications: Active Medications Acetaminophen (Tylenol) 650 mg PO Q4H PRN PRN Reason: Temp > 100.4, MAIN, Pain1-2 Last Admin: 05/26/18 18:37 Dose: 650 mg Hydrocodone Bitart/Acetaminophen ([place] 7.5/325) 1 tab PO Q4H PRN PRN Reason: Pain 7-10 Last Admin: 05/27/18 02:26 Dose: 1 tab Hydrocodone Bitart/Acetaminophen ([place] 5/325) 1 tab PO Q4H PRN PRN Reason: Pain 3-6 Last Admin: 05/25/18 17:51 Dose: 1 tab Dextrose (D50w Vial) 50 ml IV.PUSH UNSCH PRN PRN Reason: PER HYPOGLYCEMIA PROTOCOL Fluconazole (Diflucan) 100 mg PO Q24H [facility] Last Admin: 05/28/18 13:04 Dose: 100 mg Glucagon (Glucagon Inj) 1 mg OTHER PRN PRN PRN Reason: for Hypoglycemia Protocol Heparin Sodium (Porcine) (Heparin Inj) 5,000 units SQ Q12HR [facility] Last Admin: 05/28/18 20:08 Dose: 5,000 units Sodium Chloride (Ns Inj) 1,000 mls @ 100 mls/hr IV.CONT .Q10H [facility] Last Infusion: 05/28/18 12:23 Dose: Infused Piperacillin/Tazobactam/Dextrose (Zosyn 3.375 Gm Premix) 50 mls @ 100 mls/hr IV.SIG Q6H [facility] Last Infusion: 05/28/18 16:05 Dose: Infused Vancomycin HCl 2,250 mg/ (Sodium Chloride) 522.5 mls @ 250 mls/hr IV.SIG Q18H [facility] Last Infusion: 05/28/18 15:11 Dose: Infused Insulin Aspart (Novolog Insulin Correctional Sugar Inj) 0 unit SQ ACHS [facility]; Protocol Last Admin: 05/28/18 20:09 Dose: 4 unit Insulin Human NPH (Novolin N Inj) 20 units SQ BID@0800,1700 [facility] Last Admin: 05/28/18 18:59 Dose: 20 units Miscellaneous Information ([facility] Ordered Lab Info) 0 each OTHER ONCE ONE Stop: 05/29/18 23:46 Morphine Sulfate (Morphine Inj) 2 mg IV.PUSH Q4H PRN PRN Reason: BREAKTHROUGH PAIN Last Admin: 05/24/18 05:26 Dose: 2 mg Ondansetron HCl (Zofran Inj) 4 mg IV.PUSH Q6H PRN PRN Reason: NAUSEA OR VOMITING Last Admin: 05/24/18 23:23 Dose: 4 mg Pharmacy Profile Note (Vancomycin Consult Pharmacy) 1 each OTHER UNSCH PRN PRN Reason: Pharmacy to dose Sodium Chloride (Ns Flush) 2 ml IV.FLUSH PRN PRN PRN Reason: FLUSH AFTER USING IV ACCESS Last Admin: 05/28/18 10:08 Dose: 2 ml Allergies Allergy/AdvReac Type Severity Reaction Status Date / Time No Known Allergies Allergy Verified 05/23/18 18:39 Home Medications Medication Instructions Recorded Confirmed Type No Known Home Medications 05/23/18 05/23/18 History Results - Labs CBC & Chem 7: 05/28/18 06:11 05/28/18 06:11 Laboratory Results - last 24 hr 05/28/18 05/28/18 05/28/18 06:11 06:11 11:28 WBC 9.9 RBC 3.64 L Hgb 9.2 L Hct 28.5 L MCV 78.4 L MCH 25.4 L MCHC 32.3 RDW 16.7 Plt Count 311 MPV 8.6 Neut % (Auto) 75.2 H Lymph % (Auto) 12.5 Bennett % (Auto) 9.9 H Eos % (Auto) 1.8 Baso % (Auto) 0.6 Neut # (Auto) 7.4 Lymph # (Auto) 1.2 Bennett # (Auto) 1.0 H Eos # (Auto) 0.2 Baso # (Auto) 0.1 WBC Differential . Differential Comment Auto diff final Sodium 141 Potassium 3.0 L Chloride 110 H Carbon Dioxide 21.1 Anion Gap 10 BUN 9 Creatinine 1.75 H Estimated GFR 38 L POC Glucose 165 H Random Glucose 128 H Calcium 7.7 L Phosphorus 1.7 L Magnesium 2.1 Total Bilirubin 0.3 AST 22 ALT 16 Alkaline Phosphatase 110 Total Protein 8.1 Albumin 1.6 L 05/28/18 05/28/18 05/28/18 18:01 18:53 20:01 WBC RBC Hgb Hct MCV MCH MCHC RDW Plt Count MPV Neut % (Auto) Lymph % (Auto) Bennett % (Auto) Eos % (Auto) Baso % (Auto) Neut # (Auto) Lymph # (Auto) Bennett # (Auto) Eos # (Auto) Baso # (Auto) WBC Differential Differential Comment Sodium Potassium Chloride Carbon Dioxide Anion Gap BUN Creatinine Estimated GFR POC Glucose 150 H 154 H 154 H Random Glucose Calcium Phosphorus Magnesium Total Bilirubin AST ALT Alkaline Phosphatase Total Protein Albumin Microbiology 05/23/18 21:05 Blood - Peripheral Aerobic Blood Culture - Final No growth in 5 days 05/23/18 21:05 Blood - Peripheral Anaerobic Blood Culture - Final No growth in 5 days 05/23/18 21:10 Blood - Peripheral Aerobic Blood Culture - Final No growth in 5 days 05/23/18 21:10 Blood - Peripheral Anaerobic Blood Culture - Final No growth in 5 days 05/26/18 16:45 Fluid - Other Gram Stain - Final 05/26/18 16:45 Fluid - Other Wound Culture - Final Myra albicans Group B beta Strep Assessment and Plan - Assessment (1) Edema of right lower leg due to peripheral venous insufficiency Code(s): I87.2 - Venous insufficiency (chronic) (peripheral); R60.0 - Localized edema Status: Acute (2) Abscess of right lower leg Code(s): L02.415 - Cutaneous abscess of right lower limb Status: Acute Plan: Discussed with wound care nurse and patient will benefit from I&D Right leg abscess NPO after midnight Possible OR tomorrow.
[2018-05-29] MEDS ORDERED: Sodium Chlor 0.9% Inj 500 ML IV.SIG SCH ×2 (01:00→08:00)
[2018-05-29] MEDS: Piperacil/Tazo 3.375 GM Premix 50 ML IV.SIG SCH ×4 (03:27→21:42)
[2018-05-29] MEDS: Chlorhexidine Gluconate 2% 1 Pack (2 Cloths) TOPICAL ONE ×2 (03:36→04:14)
[2018-05-29] MEDS: Vancomycin Inj 2,250 MG in Sodium Chlor 0.9% Inj 500 ML IV.SIG SCH (05:52)
[2018-05-29] MEDS ORDERED: Chlorhexidine Gluconate 2% 1 Pack (2 Cloths) TOPICAL ONE (08:00)
[2018-05-29] MEDS: Insulin NovoLOG Aspart Correctional Sugar Inj SQ SCH ×4 (08:49→22:04)
[2018-05-29] MEDS: Heparin - SQ 10,000 UNITS/ML Vial SQ SCH ×2 (08:50→21:41)
[2018-05-29 09:21] LABS: Baso % (Auto) 0.2 % (0.0-2.0); Eos # (Auto) 0.2 th/mm3 (0.0-0.4); Eos % (Auto) 2.7 % (0.0-4.0); Hematocrit 25.8 % (35.0-46.0); Hemoglobin 8.3 gm/dL (11.6-15.3); Lymph % (Auto) 11.6 % (9.0-44.0); Mean Corpuscular Hemoglobin 25.6 pg (27.0-34.0); Mean Corpuscular Volume 79.8 fL (80.0-100.0); Mean Platelet Volume 8.3 fL (7.0-11.0); Mono # (Auto) 0.8 th/mm3 (0.0-0.9); Mono % (Auto) 8.7 % (0.0-8.0); Neut # (Auto) 6.7 th/mm3 (1.8-7.7); Neut % (Auto) 76.8 % (16.0-70.0); Platelet Count 305 th/mm3 (150-450); Red Blood Count 3.24 mil/mm3 (4.00-5.30); Red Cell Distribution Width 16.9 % (11.6-17.2); White Blood Count 8.8 th/mm3 (4.0-11.0)
[2018-05-29 09:52] LABS: Albumin 1.4 g/dL (3.4-5.0); Aspartate Aminotransferase 29 U/L (15-37); Blood Urea Nitrogen 8 mg/dL (7-18); Calcium 7.9 mg/dL (8.5-10.1); Chloride 111 meq/L (98-107); Glomerular Filtration Rate 37 mL/min (>89); Glucose,Random 99 mg/dL (74-106); Sodium 143 meq/L (136-145)
[2018-05-29 09:58] LABS: Alanine Aminotransferase 16 U/L (10-53); Alkaline Phosphatase 104 U/L (45-117); Anion Gap 13 meq/L (5-15); Carbon Dioxide 18.6 meq/L (21.0-32.0); Phosphorus 2.6 mg/dL (2.5-4.9); Total Protein 7.4 g/dL (6.4-8.2)
[2018-05-29 10:19] LABS: Platelet Estimate Normal (Normal); Platelet Morphology Normal (Normal); Toxic Granulation 1+
[2018-05-29] MEDS ORDERED: Bupivacaine PF 0.25% Inj 30 ML Vial ONE (10:26)
[2018-05-29] MEDS ORDERED: fentaNYL Citrate Inj 250 MCG/5 ML Ampul ONE (11:59)
[2018-05-29] MEDS ORDERED: Lidocaine PF 1% Inj 5 ML Syringe INFILTRATN ONE (12:00)
[2018-05-29] MEDS ORDERED: Succinylcholine Inj 100 MG/5 ML Syringe IV.PUSH ONE (12:00)
[2018-05-29] MEDS ORDERED: Glycopyrrolate Inj 1 MG/5 ML Syringe IV.PUSH ONE (12:00)
[2018-05-29] MEDS ORDERED: Neostigmine Inj 5 MG/5 ML Syringe IV.PUSH ONE (12:00)
--- NOTE | 2018-05-29 12:21 | P.PNIM ---
Subjective Interval history: 43 y/o female with a history of uncontrolled diabetes for over 10 years (does not see a pcp) presented to the ED with complaints of right lower leg wound. She states the sore on her right lower leg opened up this past week and started draining brown fluid. She has associated decreased appetite and nausea. Denies any fever or chills at home.She states she has not been able to control her diabetes with diet and exercise and does not see a pcp due to insurance issues. 9-3 Follow-up visit right lower extremity wound with abscess, cellulitis, uncontrolled diabetes, morbid obesity. Patient seen and examined today. Reports she has not been taking any medications for diabetes for 10 years. States that she has abused her body by eating and drinking like she does not care and also heavily on soda. States that wound has been with her for quite some time however she has been feeling weak, wound started to weep and leak. Denies any fevers, chills, nausea, vomiting, diarrhea. Denies chest pain, palpitations, headaches, dizziness. Podiatry Dr. Craft that at the bedside, discussed with patient plan for MRI, CT runoff of the right lower extremity secondary to wound, abscess to assess for plan for either surgical intervention in the OR or bedside I&D pending MRI. 9-4 Follow-up visit right lower extremity wound with abscess, cellulitis, uncontrolled diabetes, morbid obesity. Patient indicates significant pain to the right leg. She is not very hungry, has occasional nausea, no vomiting. Blood sugars have been elevated up to 300s. Patient has been noncompliant for many years and was not aware of the damage she was causing her body. She is interested in talking to the clinical educator. Indicates that this is a wake- up call. No fever overnight, no chills. No chest pain, no palpitations, no diarrhea. 9-5 RIGHT LEG WITH DRAINAGE AND WEAKNESS NOT ABLE TO HAVE HHC OR UNABOOT PLACED DUE TO WOUND ON RIGHT LE SWITCH TO NPH INSULIN DC LEVEMIR 9-6 INCREASE NPH TO 20 UNITS SUBQ BID REPLACE POTASSIUM ORALLY AM LABS DW RN AND PT AND CM WOUND CARE PER PODIATRY 9-7 STILL WITH DRAINAGE AND BLEEDING FROM RIGHT LEG NOW CONTINUE ANTIBIOTICS MYRA AND GROUP B STREP REPLACE POTASSIUM AGAIN STOP LASIX AM LABS MONITOR RENAL FUNCTIONS 9-8 to have surgery on right leg with podiatry today NO NEW COMPLAINTS DW RN AND PT REPLACE POTASSIUM AGAIN Physical Exam Vital signs: Vital Signs 05/28/18 15:52 05/28/18 16:00 05/28/18 20:00 Temperature 98.8 F 98.1 F Pulse Rate 100 H 92 H 85 Respiratory Rate 18 20 Blood Pressure 137/70 159/79 H Pulse Oximetry 99 95 05/29/18 00:00 05/29/18 04:00 05/29/18 08:00 Temperature 98.3 F 98.1 F Pulse Rate 83 86 90 Respiratory Rate 20 20 Blood Pressure 160/88 H 163/84 H 151/73 H Pulse Oximetry 98 95 94 L Intake & Output 05/28/18 05/29/18 05/29/18 18:59 06:59 18:59 Intake Total 1372.5 / 1372.5 580 / 580 572.5 / 572.5 Balance 1372.5 / 1372.5 580 / 580 572.5 / 572.5 Weight 149 kg Intake: IV 1372.5 / 1372.5 100 / 100 572.5 / 572.5 Zosyn 3.375 GM Premix 50 ML @ 100 / 100 100 / 100 50 / 50 100 mls/hr IV.SIG Q6H [facility] Rx#: [id number] Vancomycin Inj 2,250 MG In NS 522.5 / 522.5 522.5 / 522.5 Inj 500 ML @ 250 mls/hr IV.SIG Q18H [facility] Rx#:[id number] Oral 480 / 480 Other: # Incontinent Voids 5 Date of Last Bowel Movement 05/28/18 05/28/18 05/29/18 # Bowel Movements 1 Narrative: GENERAL: obese, well-developed patient, in no apparent distress. SKIN: Warm and dry. HEENT: Normocephalic. Pupils equal round and reactive. Nose without bleeding. Airway patent. NECK: Trachea midline. No JVD. Supple. CARDIOVASCULAR: Regular rate and rhythm without murmurs, gallops, or rubs. RESPIRATORY: Clear to auscultation. Breath sounds equal bilaterally. No wheezes , rales, or rhonchi. GASTROINTESTINAL: Abdomen soft, non-tender, nondistended. Bowel Sounds normoactive x4. MUSCULOSKELETAL: Extremities without clubbing, cyanosis. Right lower extremity edema +4, possible underlying lymphedema, wound weeping, skin sloughing off around right calf. Erythema of entire LLE including mid thigh are. Midthigh inner lateral side with wound opening, serous fluid drain, scant amt. LLE edema +1 Venous discoloration noted to right lower extremity. RIGHT LEG IS DRESSED WITH BLOOD ON THE DRESSINGS NEUROLOGICAL: Awake and alert. Oriented to time, place, person. No focal neuro deficit. Moves all extremities, RLE weaker. Normal speech. Results - Labs CBC & Chem 7: 05/29/18 07:47 05/29/18 07:17 Laboratory Results - last 24 hr 05/28/18 05/28/18 05/28/18 18:01 18:53 20:01 WBC RBC Hgb Hct MCV MCH MCHC RDW Plt Count MPV Prelim Diff (Auto) Neut % (Auto) Lymph % (Auto) [place] % (Auto) Eos % (Auto) Baso % (Auto) Neut # (Auto) Lymph # (Auto) [place] # (Auto) Eos # (Auto) Baso # (Auto) WBC Differential Diff Scan Differential Comment Toxic Granulation Platelet Estimate Platelet Morphology Sodium Potassium Chloride Carbon Dioxide Anion Gap BUN Creatinine Estimated GFR POC Glucose 150 H 154 H 154 H Random Glucose Calcium Phosphorus Magnesium Total Bilirubin AST ALT Alkaline Phosphatase Total Protein Albumin 05/29/18 05/29/18 07:17 07:47 WBC 8.8 RBC 3.24 L Hgb 8.3 L Hct 25.8 L MCV 79.8 L MCH 25.6 L MCHC 32.0 RDW 16.9 Plt Count 305 MPV 8.3 Prelim Diff (Auto) Slide review pending Neut % (Auto) 76.8 H Lymph % (Auto) 11.6 Payne % (Auto) 8.7 H Eos % (Auto) 2.7 Baso % (Auto) 0.2 Neut # (Auto) 6.7 Lymph # (Auto) 1.0 Payne # (Auto) 0.8 Eos # (Auto) 0.2 Baso # (Auto) 0.0 WBC Differential . Diff Scan Auto diff confirmed Differential Comment . Toxic Granulation 1+ H Platelet Estimate Normal Platelet Morphology Normal Sodium 143 Potassium 3.0 L Chloride 111 H Carbon Dioxide 18.6 L Anion Gap 13 BUN 8 Creatinine 1.78 H Estimated GFR 37 L POC Glucose Random Glucose 99 Calcium 7.9 L Phosphorus 2.6 Magnesium 2.0 Total Bilirubin 0.3 AST 29 ALT 16 Alkaline Phosphatase 104 Total Protein 7.4 D Albumin 1.4 L Microbiology 05/23/18 21:05 Blood - Peripheral Aerobic Blood Culture - Final No growth in 5 days 05/23/18 21:05 Blood - Peripheral Anaerobic Blood Culture - Final No growth in 5 days 05/23/18 21:10 Blood - Peripheral Aerobic Blood Culture - Final No growth in 5 days 05/23/18 21:10 Blood - Peripheral Anaerobic Blood Culture - Final No growth in 5 days 05/26/18 16:45 Fluid - Other Gram Stain - Final 05/26/18 16:45 Fluid - Other Wound Culture - Final Myra albicans Group B beta Strep - Imaging Soft Tissue Ultrasound 05/23/18 20:47 CONCLUSION: 1. Complex fluid collection may be inflammatory/infectious process or posttraumatic and appears nonspecific. Aorta w/Runoff CTA 05/24/18 00:00 CONCLUSION: 1. Extensive serpiginous edema below the knee on the right and to a lesser degree on the left. There is excellent three-vessel runoff to the left ankle and on the right side blood vessels are patent although it down to trifurcation past the popliteal artery. Below the knee there is dampened flow probably due to extrinsic mass effect from significant edema in the surrounding soft tissues without definite focal stenosis for technique. Lower Extremity MRI 05/24/18 00:00 CONCLUSION: 1. Diffuse subcutaneous edema, nonorganized fluid and skin thickening characteristic of cellulitis and inflammation without obvious abscess. Venous Doppler Study 05/25/18 00:00 CONCLUSION: 1. No deep venous thrombosis. 2. Decreasing fluid collection right leg. Assessment and Plan - Assessment (1) Left leg cellulitis Code(s): L03.116 - Cellulitis of left lower limb Status: Acute (2) Sepsis Code(s): A41.9 - Sepsis, unspecified organism Status: Acute (3) Uncontrolled diabetes mellitus Code(s): E11.65 - Type 2 diabetes mellitus with hyperglycemia Status: Acute (4) Obesity Code(s): E66.9 - Obesity, unspecified Status: Chronic (5) BELEM (acute kidney injury) Code(s): N17.9 - Acute kidney failure, unspecified Status: Acute (6) Non-compliance Code(s): Z91.19 - Patient's noncompliance with other medical treatment and regimen Status: Chronic - Plan 43 y/o female with a history of uncontrolled diabetes for over 10 years (does not see a pcp) presented to the ED with complaints of right lower leg wound. Sepsis, wbc 18.5, HR 110, source Cellulitis with possible abscess US reviewed and shows a complex fluid collection measures almost 5.3 cm in size in the lower calf medially, infectious vs inflammatory. -Appreciate podiatry input -Imaging studies reviewed-no obvious abscess, adequate blood flow. -US right leg - DVT -IV antibiotics Zosyn and Vancomycin -Pain management with IV morphine and [place] -Cultures growing B beta strep Hyperglycemia, in patient with chronic uncontrolled diabetes -A1C 15.1 -Accu checks with SSI -Blood glucose 300s, will change to NPH 20 UNITS SUBQ BID -chemical educator input appreciated. Pt. will need insulin on discharge. Acute kidney injury, creatine 1.2, unknown baseline, maybe chronic due to history of uncontrolled diabetes Improving. -Cont IVF -Trend creatine, improving -avoid nephrotoxins MONITOR- A LITTLE WORSE MAYBE DUE TO VANCO AND ZOSYN AND LASIX HYPOKALEMIA WILL REPLACE AGAIN--REPLACE AGAIN WILL REPLACE AGAIN FLUID OVERLOAD IN LEGS WILL GIVE LASIX 20MG PO Obesity -needs to lose weight, d/w pt. States she needs to change diet at home. DVT prophylaxis: Heparin SQ D/W RN, CM. Will f/u on podiatry recommendations. [place] PER PODIATRY--NOT ABLE TO BE DONE PER [facility]HW[facility] TRAFFIC CONTROL TECHNICIAN Poss need HHC, wound care. NEEDS DIABETIC EDUCATION Code Status: FULL CODE Discussed Condition With: RN AND PT AND CM Discharge Planning: PENDING IMPROVEMENT (2) Sepsis Qualifiers: Sepsis type: sepsis due to unspecified organism Qualified Code(s): A41.9 - Sepsis, unspecified organism (3) Uncontrolled diabetes mellitus Qualifiers: Diabetes mellitus type: type 2 Glycemic state: with hyperglycemia Qualified Code(s): E11.65 - Type 2 diabetes mellitus with hyperglycemia (4) Obesity Qualifiers: Obesity type: due to excess calories
[2018-05-29] MEDS ORDERED: Neomycin/Polymyxin G.U. Irrigant 1 ML Ampul ONE (12:25)
[2018-05-29] MEDS ORDERED: Sugammadex Inj 200 MG/2 ML Vial IV.PUSH ONE (12:35)
--- NOTE | 2018-05-29 12:55 | P.BOP ---
- Preoperative Diagnosis (1) Abscess of right lower leg - Postoperative Diagnosis (1) Abscess of right lower leg Date of procedure: 05/29/18 Procedure: Incision and drainage of abscess right leg Large cavernous abscess noted to right proximal medial calf level. Incision made 4cm and irrigation with 3L normal saline gravity irrigation with , followed by packing with a whole container of 1'' iodoform gauze, abd pads x 6, cast padding, coban compression bandage to right foot/leg. Anticipate repeat I&D early week Await cultures Keep compression bandage intact Anesthesia: GETA Surgeon: Adriana Soto DPM Balance And Hairspring Assembler: staff Estimated blood loss (mL): 30 Pathology: other (culture right leg) Condition: stable Disposition: PACU
[2018-05-29] MEDS ORDERED: *morphine SULFATE 4 MG/ML PERIprocedure ONLY ONE (12:59)
[2018-05-29] MEDS: Fluconazole 100 MG Tablet PO SCH (14:26)
[2018-05-29] MEDS ORDERED: Pharmacy Ordered Lab Info OTHER ONE (23:45)
[2018-05-30] MEDS: Piperacil/Tazo 3.375 GM Premix 50 ML IV.SIG SCH ×5 (04:53→22:21)
[2018-05-30] MEDS ORDERED: Vancomycin Inj 2,250 MG in Sodium Chlor 0.9% Inj 500 ML IV.SIG SCH (09:00)
[2018-05-30 09:14] LABS: Baso % (Auto) 0.3 % (0.0-2.0); Eos # (Auto) 0.3 th/mm3 (0.0-0.4); Eos % (Auto) 3.2 % (0.0-4.0); Hematocrit 25.6 % (35.0-46.0); Hemoglobin 8.1 gm/dL (11.6-15.3); Lymph # (Auto) 1.4 th/mm3 (1.0-4.8); Lymph % (Auto) 14.6 % (9.0-44.0); Mean Corpuscular HGB Conc 31.7 % (32.0-36.0); Mean Corpuscular Hemoglobin 25.3 pg (27.0-34.0); Mean Corpuscular Volume 79.8 fL (80.0-100.0); Mono # (Auto) 0.7 th/mm3 (0.0-0.9); Mono % (Auto) 7.8 % (0.0-8.0); Neut # (Auto) 7.1 th/mm3 (1.8-7.7); Neut % (Auto) 74.1 % (16.0-70.0); Platelet Count 293 th/mm3 (150-450); Red Blood Count 3.21 mil/mm3 (4.00-5.30); Red Cell Distribution Width 17.5 % (11.6-17.2); White Blood Count 9.6 th/mm3 (4.0-11.0)
[2018-05-30] MEDS: Heparin - SQ 10,000 UNITS/ML Vial SQ SCH ×2 (09:28→22:19)
[2018-05-30] MEDS: Insulin NovoLOG Aspart Correctional Sugar Inj SQ SCH ×4 (09:31→22:20)
[2018-05-30 09:48] LABS: Albumin 1.6 g/dL (3.4-5.0); Anion Gap 8 meq/L (5-15); Aspartate Aminotransferase 41 U/L (15-37); Blood Urea Nitrogen 8 mg/dL (7-18); Calcium 7.6 mg/dL (8.5-10.1); Carbon Dioxide 22.6 meq/L (21.0-32.0); Chloride 109 meq/L (98-107); Glomerular Filtration Rate 33 mL/min (>89); Glucose,Random 134 mg/dL (74-106); Magnesium 1.8 mg/dL (1.5-2.5); Potassium 3.7 meq/L (3.5-5.1); Sodium 140 meq/L (136-145)
[2018-05-30 09:52] LABS: Alanine Aminotransferase 21 U/L (10-53); Alkaline Phosphatase 104 U/L (45-117); Phosphorus 2.4 mg/dL (2.5-4.9); Total Protein 7.7 g/dL (6.4-8.2)
--- NOTE | 2018-05-30 11:55 | P.PNIM ---
Subjective Interval history: 43 y/o female with a history of uncontrolled diabetes for over 10 years (does not see a pcp) presented to the ED with complaints of right lower leg wound. She states the sore on her right lower leg opened up this past week and started draining brown fluid. She has associated decreased appetite and nausea. Denies any fever or chills at home.She states she has not been able to control her diabetes with diet and exercise and does not see a pcp due to insurance issues. 9-3 Follow-up visit right lower extremity wound with abscess, cellulitis, uncontrolled diabetes, morbid obesity. Patient seen and examined today. Reports she has not been taking any medications for diabetes for 10 years. States that she has abused her body by eating and drinking like she does not care and also heavily on soda. States that wound has been with her for quite some time however she has been feeling weak, wound started to weep and leak. Denies any fevers, chills, nausea, vomiting, diarrhea. Denies chest pain, palpitations, headaches, dizziness. Podiatry Dr. Craft that at the bedside, discussed with patient plan for MRI, CT runoff of the right lower extremity secondary to wound, abscess to assess for plan for either surgical intervention in the OR or bedside I&D pending MRI. 9-4 Follow-up visit right lower extremity wound with abscess, cellulitis, uncontrolled diabetes, morbid obesity. Patient indicates significant pain to the right leg. She is not very hungry, has occasional nausea, no vomiting. Blood sugars have been elevated up to 300s. Patient has been noncompliant for many years and was not aware of the damage she was causing her body. She is interested in talking to the flex o writer operator. Indicates that this is a wake- up call. No fever overnight, no chills. No chest pain, no palpitations, no diarrhea. 9-5 RIGHT LEG WITH DRAINAGE AND WEAKNESS NOT ABLE TO HAVE HHC OR UNABOOT PLACED DUE TO WOUND ON RIGHT LE SWITCH TO NPH INSULIN DC LEVEMIR 9-6 INCREASE NPH TO 20 UNITS SUBQ BID REPLACE POTASSIUM ORALLY AM LABS DW RN AND PT AND CM WOUND CARE PER PODIATRY 9-7 STILL WITH DRAINAGE AND BLEEDING FROM RIGHT LEG NOW CONTINUE ANTIBIOTICS VINNIE AND GROUP B STREP REPLACE POTASSIUM AGAIN STOP LASIX AM LABS MONITOR RENAL FUNCTIONS 9-8 to have surgery on right leg with podiatry today NO NEW COMPLAINTS DW RN AND PT REPLACE POTASSIUM AGAIN 9-9 HAD SURGERY ON RIGHT LE YESTERDA CURRENTLY DRESSED DW RN AND PT AND CM AM LABS AVOID NEPHROTOXIC AGENTS Physical Exam Vital signs: Vital Signs 05/29/18 12:48 05/29/18 13:00 05/29/18 13:07 Temperature 97.6 F Pulse Rate 100 H 101 H 102 H Respiratory Rate 16 16 16 Blood Pressure 130/75 137/77 146/75 H Pulse Oximetry 97 98 97 05/29/18 13:11 05/29/18 16:00 05/29/18 20:00 Temperature 97.6 F 97.9 F Pulse Rate 94 H 96 H 94 H Respiratory Rate 18 20 Blood Pressure 150/86 H 127/81 Pulse Oximetry 95 97 05/29/18 22:30 05/29/18 22:57 05/30/18 00:00 Temperature 98.0 F Pulse Rate 95 H 85 Respiratory Rate 18 20 18 Blood Pressure 132/63 Pulse Oximetry 99 05/30/18 04:00 05/30/18 08:00 Temperature 97.5 F L 98.2 F Pulse Rate 85 89 Respiratory Rate 18 18 Blood Pressure 119/67 160/81 H Pulse Oximetry 99 97 Intake & Output 05/29/18 05/30/18 05/30/18 18:59 06:59 18:59 Intake Total 1622.5 / 1622.5 910 / 910 50 / 50 Output Total 30 / 30 Balance 1592.5 / 1592.5 910 / 910 50 / 50 Weight 204.4 kg Intake: IV 1122.5 / 1122.5 50 / 50 50 / 50 Zosyn 3.375 GM Premix 50 ML @ 100 / 100 50 / 50 50 / 50 100 mls/hr IV.SIG Q6H MIGUELITO Rx#: [id number] Vancomycin Inj 2,250 MG In NS 522.5 / 522.5 Inj 500 ML @ 250 mls/hr IV.SIG Q18H MIGUELITO Rx#:[id number] Oral 860 / 860 Anesthesia Amount 500 / 500 Output: Estimated Blood Loss 30 / 30 Other: # Voids 2 Date of Last Bowel Movement 05/29/18 05/30/18 05/30/18 Narrative: GENERAL: obese, well-developed patient, in no apparent distress. SKIN: Warm and dry. HEENT: Normocephalic. Pupils equal round and reactive. Nose without bleeding. Airway patent. NECK: Trachea midline. No JVD. Supple. CARDIOVASCULAR: Regular rate and rhythm without murmurs, gallops, or rubs. RESPIRATORY: Clear to auscultation. Breath sounds equal bilaterally. No wheezes , rales, or rhonchi. GASTROINTESTINAL: Abdomen soft, non-tender, nondistended. Bowel Sounds normoactive x4. MUSCULOSKELETAL: Extremities without clubbing, cyanosis. Right lower extremity edema +4, possible underlying lymphedema, wound weeping, skin sloughing off around right calf. Erythema of entire LLE including mid thigh are. Midthigh inner lateral side with wound opening, serous fluid drain, scant amt. LLE edema +1 Venous discoloration noted to right lower extremity. RIGHT LEG IS DRESSED WITH BLOOD ON THE DRESSINGS NEUROLOGICAL: Awake and alert. Oriented to time, place, person. No focal neuro deficit. Moves all extremities, RLE weaker. Normal speech. Results - Labs CBC & Chem 7: 05/30/18 08:23 05/30/18 08:23 Laboratory Results - last 24 hr 05/29/18 05/29/18 05/30/18 13:03 21:40 00:08 WBC RBC Hgb Hct MCV MCH MCHC RDW Plt Count MPV Neut % (Auto) Lymph % (Auto) [place] % (Auto) Eos % (Auto) Baso % (Auto) Neut # (Auto) Lymph # (Auto) [place] # (Auto) Eos # (Auto) Baso # (Auto) WBC Differential Differential Comment Sodium Potassium Chloride Carbon Dioxide Anion Gap BUN Creatinine Estimated GFR POC Glucose 117 H 179 H Random Glucose Calcium Phosphorus Magnesium Total Bilirubin AST ALT Alkaline Phosphatase Total Protein Albumin Vancomycin Trough 23.6 H 05/30/18 05/30/18 05/30/18 07:23 08:23 08:23 WBC 9.6 RBC 3.21 L Hgb 8.1 L Hct 25.6 L MCV 79.8 L MCH 25.3 L MCHC 31.7 L RDW 17.5 H Plt Count 293 MPV 8.0 Neut % (Auto) 74.1 H Lymph % (Auto) 14.6 [place] % (Auto) 7.8 Eos % (Auto) 3.2 Baso % (Auto) 0.3 Neut # (Auto) 7.1 Lymph # (Auto) 1.4 [place] # (Auto) 0.7 Eos # (Auto) 0.3 Baso # (Auto) 0.0 WBC Differential . Differential Comment Auto diff final Sodium 140 Potassium 3.7 Chloride 109 H Carbon Dioxide 22.6 Anion Gap 8 BUN 8 Creatinine 2.01 H Estimated GFR 33 L POC Glucose 150 H Random Glucose 134 H Calcium 7.6 L Phosphorus 2.4 L Magnesium 1.8 Total Bilirubin 0.3 AST 41 H ALT 21 Alkaline Phosphatase 104 Total Protein 7.7 Albumin 1.6 L Vancomycin Trough Microbiology 05/29/18 12:25 Abscess - Leg Fungal Smear - Final No fungal elements seen 05/29/18 12:25 Abscess - Leg Gram Stain - Final - Procedures (1) Abscess of right lower leg Date of procedure: 05/29/18 Procedure: Incision and drainage of abscess right leg Large cavernous abscess noted to right proximal medial calf level. Incision made 4cm and irrigation with 3L normal saline gravity irrigation with , followed by packing with a whole container of 1'' iodoform gauze, abd pads x 6, cast padding, coban compression bandage to right foot/leg. Anticipate repeat I&D early week Await cultures Keep compression bandage intact Anesthesia: GETA Surgeon: Adriana Soto DPM Dining Car Server: staff Estimated blood loss (mL): 30 Pathology: other (culture right leg) Condition: stable Disposition: PACU Documented By: Adriana Soto DPM 05/29/18 1252 Assessment and Plan - Assessment (1) Left leg cellulitis Code(s): L03.116 - Cellulitis of left lower limb Status: Acute (2) Sepsis Code(s): A41.9 - Sepsis, unspecified organism Status: Acute (3) Uncontrolled diabetes mellitus Code(s): E11.65 - Type 2 diabetes mellitus with hyperglycemia Status: Acute (4) Obesity Code(s): E66.9 - Obesity, unspecified Status: Chronic (5) BELEM (acute kidney injury) Code(s): N17.9 - Acute kidney failure, unspecified Status: Acute (6) Non-compliance Code(s): Z91.19 - Patient's noncompliance with other medical treatment and regimen Status: Chronic - Plan 43 y/o female with a history of uncontrolled diabetes for over 10 years (does not see a pcp) presented to the ED with complaints of right lower leg wound. Sepsis, wbc 18.5, HR 110, source Cellulitis with possible abscess US reviewed and shows a complex fluid collection measures almost 5.3 cm in size in the lower calf medially, infectious vs inflammatory. -Appreciate podiatry input -Imaging studies reviewed-no obvious abscess, adequate blood flow. -US right leg - DVT -IV antibiotics Zosyn and Vancomycin -Pain management with IV morphine and [place] -Cultures growing B beta strep Hyperglycemia, in patient with chronic uncontrolled diabetes -A1C 15.1 -Accu checks with SSI -Blood glucose 300s, will change to NPH 20 UNITS SUBQ BID -piano case and bench assembler input appreciated. Pt. will need insulin on discharge. Acute kidney injury, creatine 1.2, unknown baseline, maybe chronic due to history of uncontrolled diabetes Improving. -Cont IVF -Trend creatine, improving -avoid nephrotoxins MONITOR- A LITTLE WORSE MAYBE DUE TO VANCO AND ZOSYN AND LASIX WATCH LABS- HYPOKALEMIA WILL REPLACE AGAIN--REPLACE AGAIN WILL REPLACE AGAIN LASIX DISCONTINUED Obesity -needs to lose weight, d/w pt. States she needs to change diet at home. DVT prophylaxis: Heparin SQ D/W RN, CM. Will f/u on podiatry recommendations. ASHWIN BOOT PER PODIATRY--NOT ABLE TO BE DONE PER [employer] Poss need HHC, wound care. NEEDS DIABETIC EDUCATION Code Status: FULL CODE Discussed Condition With: RN AND PT AND CM Discharge Planning: PENDING IMPROVEMENT (2) Sepsis Qualifiers: Sepsis type: sepsis due to unspecified organism Qualified Code(s): A41.9 - Sepsis, unspecified organism (3) Uncontrolled diabetes mellitus Qualifiers: Diabetes mellitus type: type 2 Glycemic state: with hyperglycemia Qualified Code(s): E11.65 - Type 2 diabetes mellitus with hyperglycemia (4) Obesity Qualifiers: Obesity type: due to excess calories
[2018-05-30] MEDS: Fluconazole 100 MG Tablet PO SCH (13:29)
[2018-05-31] MEDS: Piperacil/Tazo 3.375 GM Premix 50 ML IV.SIG SCH ×4 (04:44→21:02)
[2018-05-31 07:11] LABS: Baso % (Auto) 0.3 % (0.0-2.0); Eos # (Auto) 0.3 th/mm3 (0.0-0.4); Eos % (Auto) 3.2 % (0.0-4.0); Hematocrit 23.4 % (35.0-46.0); Hemoglobin 7.7 gm/dL (11.6-15.3); Lymph # (Auto) 1.6 th/mm3 (1.0-4.8); Lymph % (Auto) 16.1 % (9.0-44.0); Mean Corpuscular HGB Conc 32.9 % (32.0-36.0); Mean Corpuscular Hemoglobin 25.6 pg (27.0-34.0); Mean Corpuscular Volume 77.9 fL (80.0-100.0); Mean Platelet Volume 7.7 fL (7.0-11.0); Mono # (Auto) 0.7 th/mm3 (0.0-0.9); Neut # (Auto) 7.5 th/mm3 (1.8-7.7); Neut % (Auto) 73.4 % (16.0-70.0); Platelet Count 273 th/mm3 (150-450); Red Cell Distribution Width 17.1 % (11.6-17.2); White Blood Count 10.2 th/mm3 (4.0-11.0)
[2018-05-31 08:01] LABS: Albumin 1.7 g/dL (3.4-5.0); Anion Gap 10 meq/L (5-15); Aspartate Aminotransferase 46 U/L (15-37); Blood Urea Nitrogen 8 mg/dL (7-18); Calcium 7.5 mg/dL (8.5-10.1); Carbon Dioxide 20.5 meq/L (21.0-32.0); Chloride 111 meq/L (98-107); Glomerular Filtration Rate 32 mL/min (>89); Glucose,Random 104 mg/dL (74-106); Magnesium 1.8 mg/dL (1.5-2.5); Potassium 3.8 meq/L (3.5-5.1); Sodium 141 meq/L (136-145)
[2018-05-31 08:02] LABS: Alanine Aminotransferase 26 U/L (10-53); Phosphorus 2.4 mg/dL (2.5-4.9)
[2018-05-31 08:04] LABS: Alkaline Phosphatase 98 U/L (45-117); Total Protein 7.6 g/dL (6.4-8.2); Vancomycin,Random 11.6 Comment
[2018-05-31 08:35] LABS: Eosinophils 3 % (0-4); Lymphocytes 11 % (9-44); Monocytes 3 % (0-8); Myelocytes 1 % (0-0); Platelet Estimate Normal (Normal); Platelet Morphology Normal (Normal)
[2018-05-31] MEDS: Heparin - SQ 10,000 UNITS/ML Vial SQ SCH ×2 (08:39→21:01)
[2018-05-31] MEDS: Insulin NovoLOG Aspart Correctional Sugar Inj SQ SCH ×4 (08:44→21:02)
[2018-05-31] MEDS ORDERED: Vancomycin Inj 2,250 MG in Sodium Chlor 0.9% Inj 500 ML IV.SIG ONE (11:00)
--- NOTE | 2018-05-31 13:37 | P.PNIM ---
Subjective Interval history: 43 y/o female with a history of uncontrolled diabetes for over 10 years (does not see a pcp) presented to the ED with complaints of right lower leg wound. She states the sore on her right lower leg opened up this past week and started draining brown fluid. She has associated decreased appetite and nausea. Denies any fever or chills at home.She states she has not been able to control her diabetes with diet and exercise and does not see a pcp due to insurance issues. 9-3 Follow-up visit right lower extremity wound with abscess, cellulitis, uncontrolled diabetes, morbid obesity. Patient seen and examined today. Reports she has not been taking any medications for diabetes for 10 years. States that she has abused her body by eating and drinking like she does not care and also heavily on soda. States that wound has been with her for quite some time however she has been feeling weak, wound started to weep and leak. Denies any fevers, chills, nausea, vomiting, diarrhea. Denies chest pain, palpitations, headaches, dizziness. Podiatry Dr. Craft that at the bedside, discussed with patient plan for MRI, CT runoff of the right lower extremity secondary to wound, abscess to assess for plan for either surgical intervention in the OR or bedside I&D pending MRI. 9-4 Follow-up visit right lower extremity wound with abscess, cellulitis, uncontrolled diabetes, morbid obesity. Patient indicates significant pain to the right leg. She is not very hungry, has occasional nausea, no vomiting. Blood sugars have been elevated up to 300s. Patient has been noncompliant for many years and was not aware of the damage she was causing her body. She is interested in talking to the patient educator. Indicates that this is a wake- up call. No fever overnight, no chills. No chest pain, no palpitations, no diarrhea. 9-5 RIGHT LEG WITH DRAINAGE AND WEAKNESS NOT ABLE TO HAVE HHC OR UNABOOT PLACED DUE TO WOUND ON RIGHT LE SWITCH TO NPH INSULIN DC LEVEMIR 9-6 INCREASE NPH TO 20 UNITS SUBQ BID REPLACE POTASSIUM ORALLY AM LABS DW RN AND PT AND CM WOUND CARE PER PODIATRY 9-7 STILL WITH DRAINAGE AND BLEEDING FROM RIGHT LEG NOW CONTINUE ANTIBIOTICS VINNIE AND GROUP B STREP REPLACE POTASSIUM AGAIN STOP LASIX AM LABS MONITOR RENAL FUNCTIONS 9-8 to have surgery on right leg with podiatry today NO NEW COMPLAINTS DW RN AND PT REPLACE POTASSIUM AGAIN 05-30 HAD SURGERY ON RIGHT LE YESTERDAY CURRENTLY DRESSED DW RN AND PT AND CM AM LABS AVOID NEPHROTOXIC AGENTS 05-31 RIGHT LE IS DRESSED DW RN AND PT AND CM WATCH RENAL FUNCTIONS DM BETTER CONTROLLED AM LAB Physical Exam Vital signs: Vital Signs 05/30/18 16:00 05/30/18 20:00 05/31/18 00:00 Temperature 98.0 F 98.0 F 98.1 F Pulse Rate 89 93 H 83 Respiratory Rate 18 Blood Pressure 148/75 H 115/62 132/68 Pulse Oximetry 97 96 100 05/31/18 04:00 05/31/18 08:00 05/31/18 12:00 Temperature 98.2 F 98.4 F 97.6 F Pulse Rate 88 90 89 Respiratory Rate 18 17 17 Blood Pressure 122/65 160/72 H 136/65 Pulse Oximetry 99 96 95 Intake & Output 05/30/18 05/31/18 05/31/18 18:59 06:59 18:59 Intake Total 100 / 100 100 / 100 50 / 50 Balance 100 / 100 100 / 100 50 / 50 Weight 201.5 kg Intake: IV 100 / 100 100 / 100 50 / 50 Zosyn 3.375 GM Premix 50 ML @ 100 / 100 100 / 100 50 / 50 100 mls/hr IV.SIG Q6H MIGUELITO Rx#: [id number] Other: # Voids 4 2 Date of Last Bowel Movement 05/30/18 05/30/18 # Bowel Movements 1 Narrative: GENERAL: obese, well-developed patient, in no apparent distress. SKIN: Warm and dry. HEENT: Normocephalic. Pupils equal round and reactive. Nose without bleeding. Airway patent. NECK: Trachea midline. No JVD. Supple. CARDIOVASCULAR: Regular rate and rhythm without murmurs, gallops, or rubs. RESPIRATORY: Clear to auscultation. Breath sounds equal bilaterally. No wheezes , rales, or rhonchi. GASTROINTESTINAL: Abdomen soft, non-tender, nondistended. Bowel Sounds normoactive x4. MUSCULOSKELETAL: Extremities without clubbing, cyanosis. Right lower extremity edema +4, possible underlying lymphedema, wound weeping, skin sloughing off around right calf. Erythema of entire LLE including mid thigh are. Midthigh inner lateral side with wound opening, serous fluid drain, scant amt. LLE edema +1 Venous discoloration noted to right lower extremity. RIGHT LEG IS DRESSED WITH BLOOD ON THE DRESSINGS NEUROLOGICAL: Awake and alert. Oriented to time, place, person. No focal neuro deficit. Moves all extremities, RLE weaker. Normal speech. Results - Labs CBC & Chem 7: 05/31/18 06:31 05/31/18 06:31 Laboratory Results - last 24 hr 05/31/18 05/31/18 05/31/18 06:31 06:31 11:41 WBC 10.2 RBC 3.00 L Hgb 7.7 L Hct 23.4 L MCV 77.9 L MCH 25.6 L MCHC 32.9 RDW 17.1 Plt Count 273 MPV 7.7 Prelim Diff (Auto) Slide review pending Neut % (Auto) 73.4 H Lymph % (Auto) 16.1 [place] % (Auto) 7.0 Eos % (Auto) 3.2 Baso % (Auto) 0.3 Neut # (Auto) 7.5 Lymph # (Auto) 1.6 [place] # (Auto) 0.7 Eos # (Auto) 0.3 Baso # (Auto) 0.0 WBC Differential Manual diff final Seg Neuts % (Manual) 80 H Band Neuts % (Manual) 2 Lymphocytes % (Manual) 11 Monocytes % (Manual) 3 Eosinophils % (Manual) 3 Myelocytes % (Man) 1 H Abs Neuts (Manual) 8.5 H Differential Comment . Platelet Estimate Normal Platelet Morphology Normal Sodium 141 Potassium 3.8 Chloride 111 H Carbon Dioxide 20.5 L Anion Gap 10 BUN 8 Creatinine 2.03 H Estimated GFR 32 L POC Glucose 126 H Random Glucose 104 Calcium 7.5 L Phosphorus 2.4 L Magnesium 1.8 Total Bilirubin 0.3 AST 46 H ALT 26 Alkaline Phosphatase 98 Total Protein 7.6 Albumin 1.7 L Random Vancomycin 11.6 Microbiology 05/29/18 12:25 Abscess - Leg Gram Stain - Final 05/29/18 12:25 Abscess - Leg Wound Culture - Preliminary Group B beta Strep - Procedures (1) Abscess of right lower leg Date of procedure: 05/29/18 Procedure: Incision and drainage of abscess right leg Large cavernous abscess noted to right proximal medial calf level. Incision made 4cm and irrigation with 3L normal saline gravity irrigation with , followed by packing with a whole container of 1'' iodoform gauze, abd pads x 6, cast padding, coban compression bandage to right foot/leg. Anticipate repeat I&D early week Await cultures Keep compression bandage intact Anesthesia: GETA Surgeon: Adriana Soto DPM Director Loss Prevention: staff Estimated blood loss (mL): 30 Pathology: other (culture right leg) Condition: stable Disposition: PACU Documented By: Adriana Soto DPM 05/29/18 1252 Assessment and Plan - Assessment (1) Left leg cellulitis Code(s): L03.116 - Cellulitis of left lower limb Status: Acute (2) Sepsis Code(s): A41.9 - Sepsis, unspecified organism Status: Acute (3) Uncontrolled diabetes mellitus Code(s): E11.65 - Type 2 diabetes mellitus with hyperglycemia Status: Acute (4) Obesity Code(s): E66.9 - Obesity, unspecified Status: Chronic (5) BELEM (acute kidney injury) Code(s): N17.9 - Acute kidney failure, unspecified Status: Acute (6) Non-compliance Code(s): Z91.19 - Patient's noncompliance with other medical treatment and regimen Status: Chronic - Plan 43 y/o female with a history of uncontrolled diabetes for over 10 years (does not see a pcp) presented to the ED with complaints of right lower leg wound. Sepsis, wbc 18.5, HR 110, source Cellulitis with possible abscess US reviewed and shows a complex fluid collection measures almost 5.3 cm in size in the lower calf medially, infectious vs inflammatory. -Appreciate podiatry input -Imaging studies reviewed-no obvious abscess, adequate blood flow. -US right leg - DVT -IV antibiotics Zosyn and Vancomycin -Pain management with IV morphine and [place] -Cultures growing B beta strep Hyperglycemia, in patient with chronic uncontrolled diabetes -A1C 15.1 -Accu checks with SSI -Blood glucose 300s, will change to NPH 20 UNITS SUBQ BID -asthma educator input appreciated. Pt. will need insulin on discharge. Acute kidney injury, creatine 1.2, unknown baseline, maybe chronic due to history of uncontrolled diabetes Improving. -Cont IVF -Trend creatine, improving -avoid nephrotoxins MONITOR- A LITTLE WORSE MAYBE DUE TO VANCO AND ZOSYN AND LASIX WATCH LABS- AM LABS AM LABS HYPOKALEMIA WILL REPLACE AGAIN--REPLACE AGAIN WILL REPLACE AGAIN LASIX DISCONTINUED Obesity -needs to lose weight, d/w pt. States she needs to change diet at home. DVT prophylaxis: Heparin SQ D/W RN, CM. Will f/u on podiatry recommendations. ASHWIN BOOT PER PODIATRY--NOT ABLE TO BE DONE PER [employer] C[employer]W T[employer]ER Poss need HHC, wound care. NEEDS DIABETIC EDUCATION Code Status: FULL CODE Discussed Condition With: RN AND PT AND CM Discharge Planning: PENDING IMPROVEMENT (2) Sepsis Qualifiers: Sepsis type: sepsis due to unspecified organism Qualified Code(s): A41.9 - Sepsis, unspecified organism (3) Uncontrolled diabetes mellitus Qualifiers: Diabetes mellitus type: type 2 Glycemic state: with hyperglycemia Qualified Code(s): E11.65 - Type 2 diabetes mellitus with hyperglycemia (4) Obesity Qualifiers: Obesity type: due to excess calories
[2018-05-31] MEDS: Fluconazole 100 MG Tablet PO SCH (14:00)
--- NOTE | 2018-05-31 23:00 | P.PNPOD ---
Subjective Interval history: Patient seen bedside, resting comfortably. Denies any N,V,F,Ch or concerns. Physical Exam Vital signs: Vital Signs 05/31/18 00:00 05/31/18 04:00 05/31/18 08:00 Temperature 98.1 F 98.2 F 98.4 F Pulse Rate 83 88 90 Respiratory Rate 18 18 17 Blood Pressure 132/68 122/65 160/72 H Pulse Oximetry 100 99 96 05/31/18 12:00 05/31/18 16:00 Temperature 97.6 F 97.9 F Pulse Rate 89 89 Respiratory Rate 17 16 Blood Pressure 136/65 138/67 Pulse Oximetry 95 97 Intake & Output 05/31/18 05/31/18 06/01/18 06:59 18:59 06:59 Intake Total 100 / 100 1582.5 / 1582.5 50 / 50 Balance 100 / 100 1582.5 / 1582.5 50 / 50 Weight 201.5 kg Intake: IV 100 / 100 622.5 / 622.5 50 / 50 Zosyn 3.375 GM Premix 50 ML @ 100 / 100 100 / 100 50 / 50 100 mls/hr IV.SIG Q6H [facility] Rx#: [id number] Vancomycin Inj 2,250 MG In NS 522.5 / 522.5 Inj 500 ML @ 250 mls/hr IV.SIG ONCE ONE Rx#:[id number] Oral 960 / 960 Other: # Voids 2 4 Date of Last Bowel Movement 05/31/18 # Bowel Movements 2 Narrative: Right anterior left incision with packing present and sero-sanguinous drainage. No purulent drainage noted. Decreased erythema and edema. Medications and Allergies Active Medications: Active Medications Acetaminophen (Tylenol) 650 mg PO Q4H PRN PRN Reason: Temp > 100.4, MAIN, Pain1-2 Last Admin: 05/26/18 18:37 Dose: 650 mg Hydrocodone Bitart/Acetaminophen ([place] 7.5/325) 1 tab PO Q4H PRN PRN Reason: Pain 7-10 Last Admin: 05/30/18 17:49 Dose: 1 tab Hydrocodone Bitart/Acetaminophen ([place] 5/325) 1 tab PO Q4H PRN PRN Reason: Pain 3-6 Last Admin: 05/25/18 17:51 Dose: 1 tab Dextrose (D50w Vial) 50 ml IV.PUSH UNSCH PRN PRN Reason: PER HYPOGLYCEMIA PROTOCOL Fluconazole (Diflucan) 100 mg PO Q24H [facility] Last Admin: 05/31/18 14:00 Dose: 100 mg Glucagon (Glucagon Inj) 1 mg OTHER PRN PRN PRN Reason: for Hypoglycemia Protocol Heparin Sodium (Porcine) (Heparin Inj) 5,000 units SQ Q12HR [facility] Last Admin: 05/31/18 21:01 Dose: 5,000 units Sodium Chloride (Ns Inj) 1,000 mls @ 100 mls/hr IV.CONT .Q10H [facility] Last Infusion: 05/28/18 12:23 Dose: Infused Piperacillin/Tazobactam/Dextrose (Zosyn 3.375 Gm Premix) 50 mls @ 100 mls/hr IV.SIG Q6H [facility] Last Infusion: 05/31/18 21:29 Dose: Infused Sodium Chloride (Ns Inj) 500 mls @ 30 mls/hr IV.SIG .Q10H [facility] Last Admin: 05/29/18 11:25 Dose: Not Given Insulin Aspart (Novolog Insulin Correctional Sugar Inj) 0 unit SQ ACHS [facility]; Protocol Last Admin: 05/31/18 21:02 Dose: 2 unit Insulin Human NPH (Novolin N Inj) 20 units SQ BID@0800,1700 [facility] Last Admin: 05/31/18 17:10 Dose: 20 units Morphine Sulfate (Morphine Inj) 2 mg IV.PUSH Q4H PRN PRN Reason: BREAKTHROUGH PAIN Last Admin: 05/24/18 05:26 Dose: 2 mg Ondansetron HCl (Zofran Inj) 4 mg IV.PUSH Q6H PRN PRN Reason: NAUSEA OR VOMITING Last Admin: 05/24/18 23:23 Dose: 4 mg Pharmacy Profile Note (Vancomycin Consult Pharmacy) 1 each OTHER UNSCH PRN PRN Reason: Pharmacy to dose Potassium Chloride (Klor-Con 10) 60 meq PO BID [facility] Last Admin: 05/31/18 21:01 Dose: 60 meq Sodium Chloride (Ns Flush) 2 ml IV.FLUSH PRN PRN PRN Reason: FLUSH AFTER USING IV ACCESS Last Admin: 05/28/18 10:08 Dose: 2 ml Allergies Allergy/AdvReac Type Severity Reaction Status Date / Time No Known Allergies Allergy Verified 05/23/18 18:39 Home Medications Medication Instructions Recorded Confirmed Type No Known Home Medications 05/23/18 05/23/18 History Results - Labs CBC & Chem 7: 05/31/18 06:31 05/31/18 06:31 Laboratory Results - last 24 hr 05/31/1818 05/31/18 06:31 06:31 11:41 WBC 10.2 RBC 3.00 L Hgb 7.7 L Hct 23.4 L MCV 77.9 L MCH 25.6 L MCHC 32.9 RDW 17.1 Plt Count 273 MPV 7.7 Prelim Diff (Auto) Slide review pending Neut % (Auto) 73.4 H Lymph % (Auto) 16.1 [place] % (Auto) 7.0 Eos % (Auto) 3.2 Baso % (Auto) 0.3 Neut # (Auto) 7.5 Lymph # (Auto) 1.6 [place] # (Auto) 0.7 Eos # (Auto) 0.3 Baso # (Auto) 0.0 WBC Differential Manual diff final Seg Neuts % (Manual) 80 H Band Neuts % (Manual) 2 Lymphocytes % (Manual) 11 Monocytes % (Manual) 3 Eosinophils % (Manual) 3 Myelocytes % (Man) 1 H Abs Neuts (Manual) 8.5 H Differential Comment . Platelet Estimate Normal Platelet Morphology Normal Sodium 141 Potassium 3.8 Chloride 111 H Carbon Dioxide 20.5 L Anion Gap 10 BUN 8 Creatinine 2.03 H Estimated GFR 32 L POC Glucose 126 H Random Glucose 104 Calcium 7.5 L Phosphorus 2.4 L Magnesium 1.8 Total Bilirubin 0.3 AST 46 H ALT 26 Alkaline Phosphatase 98 Total Protein 7.6 Albumin 1.7 L Random Vancomycin 11.6 05/31/18 05/31/18 16:44 19:43 WBC RBC Hgb Hct MCV MCH MCHC RDW Plt Count MPV Prelim Diff (Auto) Neut % (Auto) Lymph % (Auto) [place] % (Auto) Eos % (Auto) Baso % (Auto) Neut # (Auto) Lymph # (Auto) [place] # (Auto) Eos # (Auto) Baso # (Auto) WBC Differential Seg Neuts % (Manual) Band Neuts % (Manual) Lymphocytes % (Manual) Monocytes % (Manual) Eosinophils % (Manual) Myelocytes % (Man) Abs Neuts (Manual) Differential Comment Platelet Estimate Platelet Morphology Sodium Potassium Chloride Carbon Dioxide Anion Gap BUN Creatinine Estimated GFR POC Glucose 187 H 170 H Random Glucose Calcium Phosphorus Magnesium Total Bilirubin AST ALT Alkaline Phosphatase Total Protein Albumin Random Vancomycin Microbiology 05/29/18 12:25 Abscess - Leg Acid Fast Bacilli Smear - Final No acid fast bacilli seen 05/29/18 12:25 Abscess - Leg Gram Stain - Final 05/29/18 12:25 Abscess - Leg Wound Culture - Preliminary Group B beta Strep - Procedures (1) Abscess of right lower leg Date of procedure: 05/29/18 Procedure: Incision and drainage of abscess right leg Large cavernous abscess noted to right proximal medial calf level. Incision made 4cm and irrigation with 3L normal saline gravity irrigation with , followed by packing with a whole container of 1'' iodoform gauze, abd pads x 6, cast padding, coban compression bandage to right foot/leg. Anticipate repeat I&D early week Await cultures Keep compression bandage intact Anesthesia: YANELI Surgeon: Adriana Soto DPM Inventory Control Specialist: staff Estimated blood loss (mL): 30 Pathology: other (culture right leg) Condition: stable Disposition: PACU Documented By: Adriana Soto DPM 05/29/18 1252 Assessment and Plan - Assessment (1) Abscess of right lower leg Code(s): L02.415 - Cutaneous abscess of right lower limb Status: Acute Plan: 43 year old female s/p Incision and Drainage with Dr. Soto Packing pulled Instructions given to nursing for dressing changes Irrigate with normal saline, pack with iodoform, dress with 4x4s, ABDs, Kerlix and BENJAMIN. Change daily. Will re evaluate for additional surgical intervention At this time patient states she would like to hold off on any surgical intervention unless absolutely necessary as she states she suffered a panic attack following anesthesia after last procedure.
[2018-06-01] MEDS: Piperacil/Tazo 3.375 GM Premix 50 ML IV.SIG SCH ×4 (05:17→21:14)
[2018-06-01] MEDS: Heparin - SQ 10,000 UNITS/ML Vial SQ SCH ×2 (08:55→21:15)
[2018-06-01] MEDS: Insulin NovoLOG Aspart Correctional Sugar Inj SQ SCH ×4 (08:56→21:14)
[2018-06-01 09:16] LABS: Baso % (Auto) 0.4 % (0.0-2.0); Eos # (Auto) 0.3 th/mm3 (0.0-0.4); Hematocrit 28.7 % (35.0-46.0); Hemoglobin 9.1 gm/dL (11.6-15.3); Lymph # (Auto) 1.5 th/mm3 (1.0-4.8); Lymph % (Auto) 17.9 % (9.0-44.0); Mean Corpuscular HGB Conc 31.7 % (32.0-36.0); Mean Corpuscular Hemoglobin 25.3 pg (27.0-34.0); Mean Corpuscular Volume 79.7 fL (80.0-100.0); Mean Platelet Volume 8.1 fL (7.0-11.0); Mono # (Auto) 0.3 th/mm3 (0.0-0.9); Mono % (Auto) 4.1 % (0.0-8.0); Neut # (Auto) 6.4 th/mm3 (1.8-7.7); Neut % (Auto) 74.6 % (16.0-70.0); Platelet Count 255 th/mm3 (150-450); Red Cell Distribution Width 17.1 % (11.6-17.2); White Blood Count 8.5 th/mm3 (4.0-11.0)
[2018-06-01 09:36] LABS: Albumin 1.8 g/dL (3.4-5.0); Anion Gap 10 meq/L (5-15); Aspartate Aminotransferase 51 U/L (15-37); Blood Urea Nitrogen 7 mg/dL (7-18); Calcium 7.6 mg/dL (8.5-10.1); Carbon Dioxide 19.7 meq/L (21.0-32.0); Chloride 111 meq/L (98-107); Glomerular Filtration Rate 32 mL/min (>89); Glucose,Random 179 mg/dL (74-106); Magnesium 1.9 mg/dL (1.5-2.5); Sodium 141 meq/L (136-145)
[2018-06-01 09:38] LABS: Alanine Aminotransferase 32 U/L (10-53); Phosphorus 2.4 mg/dL (2.5-4.9)
[2018-06-01 09:39] LABS: Alkaline Phosphatase 111 U/L (45-117); Total Protein 8.1 g/dL (6.4-8.2)
[2018-06-01] MEDS: Fluconazole 100 MG Tablet PO SCH (13:52)
--- NOTE | 2018-06-01 15:18 | P.PNIM ---
Subjective Interval history: 43 y/o female with a history of uncontrolled diabetes for over 10 years (does not see a pcp) presented to the ED with complaints of right lower leg wound. She states the sore on her right lower leg opened up this past week and started draining brown fluid. She has associated decreased appetite and nausea. Denies any fever or chills at home.She states she has not been able to control her diabetes with diet and exercise and does not see a pcp due to insurance issues. 9-3 Follow-up visit right lower extremity wound with abscess, cellulitis, uncontrolled diabetes, morbid obesity. Patient seen and examined today. Reports she has not been taking any medications for diabetes for 10 years. States that she has abused her body by eating and drinking like she does not care and also heavily on soda. States that wound has been with her for quite some time however she has been feeling weak, wound started to weep and leak. Denies any fevers, chills, nausea, vomiting, diarrhea. Denies chest pain, palpitations, headaches, dizziness. Podiatry Dr. Craft that at the bedside, discussed with patient plan for MRI, CT runoff of the right lower extremity secondary to wound, abscess to assess for plan for either surgical intervention in the OR or bedside I&D pending MRI. 9-4 Follow-up visit right lower extremity wound with abscess, cellulitis, uncontrolled diabetes, morbid obesity. Patient indicates significant pain to the right leg. She is not very hungry, has occasional nausea, no vomiting. Blood sugars have been elevated up to 300s. Patient has been noncompliant for many years and was not aware of the damage she was causing her body. She is interested in talking to the hospital educator. Indicates that this is a wake- up call. No fever overnight, no chills. No chest pain, no palpitations, no diarrhea. 9-5 RIGHT LEG WITH DRAINAGE AND WEAKNESS NOT ABLE TO HAVE HHC OR UNABOOT PLACED DUE TO WOUND ON RIGHT LE SWITCH TO NPH INSULIN DC LEVEMIR 9-6 INCREASE NPH TO 20 UNITS SUBQ BID REPLACE POTASSIUM ORALLY AM LABS DW RN AND PT AND CM WOUND CARE PER PODIATRY 9-7 STILL WITH DRAINAGE AND BLEEDING FROM RIGHT LEG NOW CONTINUE ANTIBIOTICS VINNIE AND GROUP B STREP REPLACE POTASSIUM AGAIN STOP LASIX AM LABS MONITOR RENAL FUNCTIONS 9-8 to have surgery on right leg with podiatry today NO NEW COMPLAINTS DW RN AND PT REPLACE POTASSIUM AGAIN 05-30 HAD SURGERY ON RIGHT LE YESTERDAY CURRENTLY DRESSED DW RN AND PT AND CM AM LABS AVOID NEPHROTOXIC AGENTS 05-31 RIGHT LE IS DRESSED DW RN AND PT AND CM WATCH RENAL FUNCTIONS DM BETTER CONTROLLED AM LAB 06-01 continue ANTIBIOTICS DW RN AND PT AND CM CONTINUE WOUND CARE Physical Exam Vital signs: Vital Signs 05/31/18 16:00 05/31/18 20:00 06/01/18 00:00 Temperature 97.9 F 98.4 F 97.5 F L Pulse Rate 89 86 88 Respiratory Rate 18 Blood Pressure 138/67 160/89 H 161/95 H Pulse Oximetry 97 96 100 06/01/18 04:00 06/01/18 08:00 06/01/18 12:00 Temperature 98 F 97.9 F 98.0 F Pulse Rate 91 H 83 81 Respiratory Rate 18 Blood Pressure 156/85 H 136/84 146/82 H Pulse Oximetry 98 100 100 Intake & Output 05/31/18 06/01/18 06/01/18 18:59 06:59 18:59 Intake Total 1582.5 / 1582.5 1100 / 1100 50 / 50 Balance 1582.5 / 1582.5 1100 / 1100 50 / 50 Intake: IV 622.5 / 622.5 100 / 100 50 / 50 Zosyn 3.375 GM Premix 50 ML @ 100 / 100 100 / 100 50 / 50 100 mls/hr IV.SIG Q6H [facility] Rx#: [id number] Vancomycin Inj 2,250 MG In NS 522.5 / 522.5 Inj 500 ML @ 250 mls/hr IV.SIG ONCE ONE Rx#:[id number] Oral 960 / 960 1000 / 1000 Other: # Voids 4 5 Date of Last Bowel Movement 05/31/18 05/31/18 06/01/18 # Bowel Movements 2 Narrative: GENERAL: obese, well-developed patient, in no apparent distress. SKIN: Warm and dry. HEENT: Normocephalic. Pupils equal round and reactive. Nose without bleeding. Airway patent. NECK: Trachea midline. No JVD. Supple. CARDIOVASCULAR: Regular rate and rhythm without murmurs, gallops, or rubs. RESPIRATORY: Clear to auscultation. Breath sounds equal bilaterally. No wheezes , rales, or rhonchi. GASTROINTESTINAL: Abdomen soft, non-tender, nondistended. Bowel Sounds normoactive x4. MUSCULOSKELETAL: Extremities without clubbing, cyanosis. Right lower extremity edema +4, possible underlying lymphedema, wound weeping, skin sloughing off around right calf. Erythema of entire LLE including mid thigh are. Midthigh inner lateral side with wound opening, serous fluid drain, scant amt. LLE edema +1 Venous discoloration noted to right lower extremity. RIGHT LEG IS DRESSED WITH BLOOD ON THE DRESSINGS NEUROLOGICAL: Awake and alert. Oriented to time, place, person. No focal neuro deficit. Moves all extremities, RLE weaker. Normal speech. Results - Labs CBC & Chem 7: 06/01/18 08:00 06/01/18 08:00 Laboratory Results - last 24 hr 05/31/18 05/31/18 06/01/18 16:44 19:43 08:00 WBC 8.5 RBC 3.60 L Hgb 9.1 L Hct 28.7 L MCV 79.7 L MCH 25.3 L MCHC 31.7 L RDW 17.1 Plt Count 255 MPV 8.1 Neut % (Auto) 74.6 H Lymph % (Auto) 17.9 [place] % (Auto) 4.1 Eos % (Auto) 3.0 Baso % (Auto) 0.4 Neut # (Auto) 6.4 Lymph # (Auto) 1.5 [place] # (Auto) 0.3 Eos # (Auto) 0.3 Baso # (Auto) 0.0 WBC Differential . Differential Comment Auto diff final Sodium Potassium Chloride Carbon Dioxide Anion Gap BUN Creatinine Estimated GFR POC Glucose 187 H 170 H Random Glucose Calcium Phosphorus Magnesium Total Bilirubin AST ALT Alkaline Phosphatase Total Protein Albumin 06/01/18 08:00 WBC RBC Hgb Hct MCV MCH MCHC RDW Plt Count MPV Neut % (Auto) Lymph % (Auto) [place] % (Auto) Eos % (Auto) Baso % (Auto) Neut # (Auto) Lymph # (Auto) [place] # (Auto) Eos # (Auto) Baso # (Auto) WBC Differential Differential Comment Sodium 141 Potassium 4.0 Chloride 111 H Carbon Dioxide 19.7 L Anion Gap 10 BUN 7 Creatinine 2.05 H Estimated GFR 32 L POC Glucose Random Glucose 179 H Calcium 7.6 L Phosphorus 2.4 L Magnesium 1.9 Total Bilirubin 0.2 AST 51 H ALT 32 Alkaline Phosphatase 111 Total Protein 8.1 Albumin 1.8 L Microbiology 05/29/18 12:25 Abscess - Leg Gram Stain - Final 05/29/18 12:25 Abscess - Leg Wound Culture - Final Group B beta Strep 05/29/18 12:25 Abscess - Leg Acid Fast Bacilli Smear - Final No acid fast bacilli seen - Imaging ITS Impressions Soft Tissue Ultrasound 05/23/18 20:47 CONCLUSION: 1. Complex fluid collection may be inflammatory/infectious process or posttraumatic and appears nonspecific. Aorta w/Runoff CTA 05/24/18 00:00 CONCLUSION: 1. Extensive serpiginous edema below the knee on the right and to a lesser degree on the left. There is excellent three-vessel runoff to the left ankle and on the right side blood vessels are patent although it down to trifurcation past the popliteal artery. Below the knee there is dampened flow probably due to extrinsic mass effect from significant edema in the surrounding soft tissues without definite focal stenosis for technique. Lower Extremity MRI 05/24/18 00:00 CONCLUSION: 1. Diffuse subcutaneous edema, nonorganized fluid and skin thickening characteristic of cellulitis and inflammation without obvious abscess. Venous Doppler Study 05/25/18 00:00 CONCLUSION: 1. No deep venous thrombosis. 2. Decreasing fluid collection right leg. - Procedures (1) Abscess of right lower leg Date of procedure: 05/29/18 Procedure: Incision and drainage of abscess right leg Large cavernous abscess noted to right proximal medial calf level. Incision made 4cm and irrigation with 3L normal saline gravity irrigation with , followed by packing with a whole container of 1'' iodoform gauze, abd pads x 6, cast padding, coban compression bandage to right foot/leg. Anticipate repeat I&D early week Await cultures Keep compression bandage intact Anesthesia: GETA Surgeon: Adriana Soto DPM Catering Director: staff Estimated blood loss (mL): 30 Pathology: other (culture right leg) Condition: stable Disposition: PACU Documented By: Adriana Soto DPM 05/29/18 1252 Assessment and Plan - Assessment (1) Left leg cellulitis Code(s): L03.116 - Cellulitis of left lower limb Status: Acute (2) Sepsis Code(s): A41.9 - Sepsis, unspecified organism Status: Acute (3) Uncontrolled diabetes mellitus Code(s): E11.65 - Type 2 diabetes mellitus with hyperglycemia Status: Acute (4) Obesity Code(s): E66.9 - Obesity, unspecified Status: Chronic (5) BELEM (acute kidney injury) Code(s): N17.9 - Acute kidney failure, unspecified Status: Acute (6) Non-compliance Code(s): Z91.19 - Patient's noncompliance with other medical treatment and regimen Status: Chronic - Plan 43 y/o female with a history of uncontrolled diabetes for over 10 years (does not see a pcp) presented to the ED with complaints of right lower leg wound. Sepsis, wbc 18.5, HR 110, source Cellulitis with possible abscess US reviewed and shows a complex fluid collection measures almost 5.3 cm in size in the lower calf medially, infectious vs inflammatory. -Appreciate podiatry input -Imaging studies reviewed-no obvious abscess, adequate blood flow. -US right leg - DVT -IV antibiotics Zosyn and Vancomycin -Pain management with IV morphine and [place] -Cultures growing B beta strep Hyperglycemia, in patient with chronic uncontrolled diabetes -A1C 15.1 -Accu checks with SSI -Blood glucose 300s, will change to NPH 20 UNITS SUBQ BID -prosthodontist/educator input appreciated. Pt. will need insulin on discharge. Acute kidney injury, creatine 1.2, unknown baseline, maybe chronic due to history of uncontrolled diabetes Improving. -Cont IVF -Trend creatine, improving -avoid nephrotoxins MONITOR- A LITTLE WORSE MAYBE DUE TO VANCO AND ZOSYN AND LASIX WATCH LABS- AM LABS AM LABS HYPOKALEMIA WILL REPLACE AGAIN--REPLACE AGAIN WILL REPLACE AGAIN LASIX DISCONTINUED Obesity -needs to lose weight, d/w pt. States she needs to change diet at home. DVT prophylaxis: Heparin SQ D/W RN, CM. Will f/u on podiatry recommendations. ASHWIN BOOT PER PODIATRY--NOT ABLE TO BE DONE PER GRAIN COMMODITY MANAGER Poss need HHC, wound care. NEEDS DIABETIC EDUCATION Code Status: FULL CODE Discussed Condition With: RN AND PT AND CM Discharge Planning: PENDING IMPROVEMENT (2) Sepsis Qualifiers: Sepsis type: sepsis due to unspecified organism Qualified Code(s): A41.9 - Sepsis, unspecified organism (3) Uncontrolled diabetes mellitus Qualifiers: Diabetes mellitus type: type 2 Glycemic state: with hyperglycemia Qualified Code(s): E11.65 - Type 2 diabetes mellitus with hyperglycemia (4) Obesity Qualifiers: Obesity type: due to excess calories
--- NOTE | 2018-06-01 22:55 | P.PNPOD ---
Subjective Interval history: Patient seen bedside, nursing present. Denies any N, V, F, Ch. States she is feeling better .Reports pain control to right LE. States she does not want to return to OR and feels that it will improve. Physical Exam Vital signs: Vital Signs 06/01/18 00:00 06/01/18 04:00 06/01/18 08:00 Temperature 97.5 F L 98 F 97.9 F Pulse Rate 88 91 H 83 Respiratory Rate 18 18 18 Blood Pressure 161/95 H 156/85 H 136/84 Pulse Oximetry 100 98 100 06/01/18 12:00 06/01/18 16:00 Temperature 98.0 F 98.1 F Pulse Rate 81 95 H Respiratory Rate 18 18 Blood Pressure 146/82 H 170/107 H Pulse Oximetry 100 97 Intake & Output 06/01/18 06/01/18 06/02/18 06:59 18:59 06:59 Intake Total 1100 / 1100 820 / 820 50 / 50 Balance 1100 / 1100 820 / 820 50 / 50 Intake: IV 100 / 100 100 / 100 50 / 50 Zosyn 3.375 GM Premix 50 ML @ 100 / 100 100 / 100 50 / 50 100 mls/hr IV.SIG Q6H [facility] Rx#: [id number] Oral 1000 / 1000 720 / 720 Other: # Voids 5 4 Date of Last Bowel Movement 05/31/18 06/01/18 Narrative: Serous drainage noted from right anterior mid leg wound with granular base. No purulent drainage noted from wound upon compression. No fluctuance or crepidus noted. Resolving erythema and edema noted. Venous stasis dermatitis noted to right LE. Medications and Allergies Active Medications: Active Medications Acetaminophen (Tylenol) 650 mg PO Q4H PRN PRN Reason: Temp > 100.4, MAIN, Pain1-2 Last Admin: 05/26/18 18:37 Dose: 650 mg Hydrocodone Bitart/Acetaminophen ([place] 7.5/325) 1 tab PO Q4H PRN PRN Reason: Pain 7-10 Last Admin: 05/30/18 17:49 Dose: 1 tab Hydrocodone Bitart/Acetaminophen ([place] 5/325) 1 tab PO Q4H PRN PRN Reason: Pain 3-6 Last Admin: 05/25/18 17:51 Dose: 1 tab Dextrose (D50w Vial) 50 ml IV.PUSH UNSCH PRN PRN Reason: PER HYPOGLYCEMIA PROTOCOL Fluconazole (Diflucan) 100 mg PO Q24H [facility] Last Admin: 06/01/18 13:52 Dose: 100 mg Glucagon (Glucagon Inj) 1 mg OTHER PRN PRN PRN Reason: for Hypoglycemia Protocol Heparin Sodium (Porcine) (Heparin Inj) 5,000 units SQ Q12HR [facility] Last Admin: 06/01/18 21:15 Dose: 5,000 units Sodium Chloride (Ns Inj) 1,000 mls @ 100 mls/hr IV.CONT .Q10H [facility] Last Infusion: 05/28/18 12:23 Dose: Infused Piperacillin/Tazobactam/Dextrose (Zosyn 3.375 Gm Premix) 50 mls @ 100 mls/hr IV.SIG Q6H [facility] Last Infusion: 06/01/18 22:12 Dose: Infused Sodium Chloride (Ns Inj) 500 mls @ 30 mls/hr IV.SIG .Q10H [facility] Last Admin: 05/29/18 11:25 Dose: Not Given Insulin Aspart (Novolog Insulin Correctional Sugar Inj) 0 unit SQ ACHS [facility]; Protocol Last Admin: 06/01/18 21:14 Dose: 2 unit Insulin Human NPH (Novolin N Inj) 20 units SQ BID@0800,1700 [facility] Last Admin: 06/01/18 17:49 Dose: 20 units Morphine Sulfate (Morphine Inj) 2 mg IV.PUSH Q4H PRN PRN Reason: BREAKTHROUGH PAIN Last Admin: 05/24/18 05:26 Dose: 2 mg Ondansetron HCl (Zofran Inj) 4 mg IV.PUSH Q6H PRN PRN Reason: NAUSEA OR VOMITING Last Admin: 05/24/18 23:23 Dose: 4 mg Pharmacy Profile Note (Vancomycin Consult Pharmacy) 1 each OTHER UNSCH PRN PRN Reason: Pharmacy to dose Potassium Chloride (Klor-Con 10) 60 meq PO BID [facility] Last Admin: 06/01/18 21:15 Dose: 60 meq Sodium Chloride (Ns Flush) 2 ml IV.FLUSH PRN PRN PRN Reason: FLUSH AFTER USING IV ACCESS Last Admin: 05/28/18 10:08 Dose: 2 ml Allergies Allergy/AdvReac Type Severity Reaction Status Date / Time No Known Allergies Allergy Verified 05/23/18 18:39 Home Medications Medication Instructions Recorded Confirmed Type No Known Home Medications 05/23/18 05/23/18 History Results - Labs CBC & Chem 7: 06/01/18 08:00 06/01/18 15:25 Laboratory Results - last 24 hr 06/01/18 06/01/18 06/01/18 08:00 08:00 15:25 WBC 8.5 RBC 3.60 L Hgb 9.1 L Hct 28.7 L MCV 79.7 L MCH 25.3 L MCHC 31.7 L RDW 17.1 Plt Count 255 MPV 8.1 Neut % (Auto) 74.6 H Lymph % (Auto) 17.9 [place] % (Auto) 4.1 Eos % (Auto) 3.0 Baso % (Auto) 0.4 Neut # (Auto) 6.4 Lymph # (Auto) 1.5 [place] # (Auto) 0.3 Eos # (Auto) 0.3 Baso # (Auto) 0.0 WBC Differential . Differential Comment Auto diff final Sodium 141 Potassium 4.0 Chloride 111 H Carbon Dioxide 19.7 L Anion Gap 10 BUN 7 7 Creatinine 2.05 H 2.06 H Estimated GFR 32 L 32 L POC Glucose Random Glucose 179 H Calcium 7.6 L Phosphorus 2.4 L Magnesium 1.9 Total Bilirubin 0.2 AST 51 H ALT 32 Alkaline Phosphatase 111 Total Protein 8.1 Albumin 1.8 L 06/01/18 06/01/18 16:40 19:33 WBC RBC Hgb Hct MCV MCH MCHC RDW Plt Count MPV Neut % (Auto) Lymph % (Auto) [place] % (Auto) Eos % (Auto) Baso % (Auto) Neut # (Auto) Lymph # (Auto) [place] # (Auto) Eos # (Auto) Baso # (Auto) WBC Differential Differential Comment Sodium Potassium Chloride Carbon Dioxide Anion Gap BUN Creatinine Estimated GFR POC Glucose 161 H 180 H Random Glucose Calcium Phosphorus Magnesium Total Bilirubin AST ALT Alkaline Phosphatase Total Protein Albumin Microbiology 05/29/18 12:25 Abscess - Leg Gram Stain - Final 05/29/18 12:25 Abscess - Leg Wound Culture - Final Group B beta Strep - Procedures (1) Abscess of right lower leg Date of procedure: 05/29/18 Procedure: Incision and drainage of abscess right leg Large cavernous abscess noted to right proximal medial calf level. Incision made 4cm and irrigation with 3L normal saline gravity irrigation with , followed by packing with a whole container of 1'' iodoform gauze, abd pads x 6, cast padding, coban compression bandage to right foot/leg. Anticipate repeat I&D early week Await cultures Keep compression bandage intact Anesthesia: YANELI Surgeon: Adriana Soto DPM Life Skills Instructor: staff Estimated blood loss (mL): 30 Pathology: other (culture right leg) Condition: stable Disposition: PACU Documented By: Adriana Soto DPM 05/29/18 1252 Assessment and Plan - Assessment (1) Abscess of right lower leg Code(s): L02.415 - Cutaneous abscess of right lower limb Status: Acute Plan: 43 year old female s/p Incision and Drainage with Dr. Soto Packing pulled, right LE irrigated and repacked Right LE dressing changed Instructions given to nursing for dressing changes for tomorrow Irrigate with normal saline, pack with iodoform, dress with 4x4s, ABDs, Kerlix and BENJAMIN. Change daily. Will re evaluate for additional surgical intervention however at this time patient is refusing to return to OR she states she feels it will heal on its own Currently right leg wound is progressing and signs of infection are resolving Will sign out care to Dr. Maravilla who will evaluate in 48 hours
[2018-06-02] MEDS: Piperacil/Tazo 3.375 GM Premix 50 ML IV.SIG SCH ×2 (03:30→10:17)
[2018-06-02] MEDS: Heparin - SQ 10,000 UNITS/ML Vial SQ SCH ×2 (08:28→20:42)
[2018-06-02] MEDS: Insulin NovoLOG Aspart Correctional Sugar Inj SQ SCH ×4 (08:28→20:40)
--- NOTE | 2018-06-02 12:38 | P.PNWCN ---
Wound Care Nurse Consult Additional information: Patient not seen today, Doctor Antonio has written wound care orders for wound on R leg.Wound care inpatient is signing off.
--- NOTE | 2018-06-02 14:50 | P.PNIM ---
Subjective Interval history: No distress. Pain controlled. Patient reports improvement of her wounds/leg. Physical Exam Vital signs: Vital Signs 06/01/18 16:00 06/01/18 20:00 06/02/18 00:00 Temperature 98.1 F 97.2 F L 98.4 F Pulse Rate 95 H 84 107 H Respiratory Rate 18 18 20 Blood Pressure 170/107 H 113/89 116/75 Pulse Oximetry 97 99 98 06/02/18 04:00 06/02/18 08:00 06/02/18 12:00 Temperature 98.3 F 98.0 F 97.8 F Pulse Rate 96 H 83 77 Respiratory Rate 20 16 17 Blood Pressure 112/77 143/84 H 154/95 H Pulse Oximetry 100 96 98 Intake & Output 06/01/18 06/02/18 06/02/18 18:59 06:59 18:59 Intake Total 820 / 820 1060 / 1060 50 / 50 Balance 820 / 820 1060 / 1060 50 / 50 Weight 200 kg Intake: IV 100 / 100 100 / 100 50 / 50 Zosyn 3.375 GM Premix 50 ML @ 100 / 100 100 / 100 50 / 50 100 mls/hr IV.SIG Q6H [facility] Rx#: [id number] Oral 720 / 720 960 / 960 Other: # Voids 4 5 Date of Last Bowel Movement 06/01/18 06/01/18 Narrative: GENERAL: NAD, A&Ox3 HEAD: Normocephalic. NECK: Supple, trachea midline. No lymphadenopathy. EYES: No scleral icterus. No injection or drainage. CARDIOVASCULAR: Regular rate and rhythm without murmurs, gallops, or rubs. RESPIRATORY: Breath sounds equal bilaterally. No accessory muscle use. GASTROINTESTINAL: Abdomen soft, non-tender, nondistended. MUSCULOSKELETAL: No cyanosis, or edema. Right lower extremity is bandaged SKIN: Warm and dry. NEURO: No focal neurological deficits. Results - Labs CBC & Chem 7: 06/01/18 08:00 06/01/18 15:25 Laboratory Results - last 24 hr 06/01/18 06/01/18 06/01/18 15:25 16:40 19:33 BUN 7 Creatinine 2.06 H Estimated GFR 32 L POC Glucose 161 H 180 H Random Vancomycin 06/02/18 06/02/18 06:26 12:19 BUN Creatinine Estimated GFR POC Glucose 125 H Random Vancomycin 11.1 - Procedures (1) Abscess of right lower leg Date of procedure: 05/29/18 Procedure: Incision and drainage of abscess right leg Large cavernous abscess noted to right proximal medial calf level. Incision made 4cm and irrigation with 3L normal saline gravity irrigation with , followed by packing with a whole container of 1'' iodoform gauze, abd pads x 6, cast padding, coban compression bandage to right foot/leg. Anticipate repeat I&D early week Await cultures Keep compression bandage intact Anesthesia: GETA Surgeon: Adriana Soto DPM Case Mgr: staff Estimated blood loss (mL): 30 Pathology: other (culture right leg) Condition: stable Disposition: PACU Documented By: Adriana Soto DPM 05/29/18 1252 Assessment and Plan - Assessment (1) Left leg cellulitis Code(s): L03.116 - Cellulitis of left lower limb Status: Acute (2) Sepsis Code(s): A41.9 - Sepsis, unspecified organism Status: Acute (3) Uncontrolled diabetes mellitus Code(s): E11.65 - Type 2 diabetes mellitus with hyperglycemia Status: Acute (4) Obesity Code(s): E66.9 - Obesity, unspecified Status: Chronic (5) BELEM (acute kidney injury) Code(s): N17.9 - Acute kidney failure, unspecified Status: Acute (6) Non-compliance Code(s): Z91.19 - Patient's noncompliance with other medical treatment and regimen Status: Chronic - Plan 43-year-old female admitted secondary to uncontrolled diabetes with cellulitis Sepsis Right lower extremity cellulitis Right lower extremity abscess Podiatry following Repeat podiatry evaluation plan on 06/03/2018 Continue Zosyn Continue vancomycin Continue pain control Follow cultures Diabetes mellitus type 2 Follow blood sugars Insulin sliding scale Diabetic diet NPH 20 units subcutaneously twice daily BELEM Improving Follow renal function HYPOKALEMIA replace and monitor as needed Obesity Weight loss recommended. DVT prophylaxis Heparin SQ Discharge Planning: Podiatry clearance needed prior to discharge Potential HHC and Wound Care (2) Sepsis Qualifiers: Sepsis type: sepsis due to unspecified organism Qualified Code(s): A41.9 - Sepsis, unspecified organism (3) Uncontrolled diabetes mellitus Qualifiers: Diabetes mellitus type: type 2 Glycemic state: with hyperglycemia Qualified Code(s): E11.65 - Type 2 diabetes mellitus with hyperglycemia (4) Obesity Qualifiers: Obesity type: due to excess calories
[2018-06-02] MEDS: Fluconazole 100 MG Tablet PO SCH (14:56)
[2018-06-02] MEDS: Vancomycin Inj 2,500 MG in Sodium Chlor 0.9% Inj 500 ML IV.SIG SCH (14:56)
[2018-06-03] MEDS: Heparin - SQ 10,000 UNITS/ML Vial SQ SCH ×2 (09:07→21:11)
[2018-06-03] MEDS: Insulin NovoLOG Aspart Correctional Sugar Inj SQ SCH ×4 (09:08→21:11)
--- NOTE | 2018-06-03 14:19 | P.PNIM ---
Subjective Interval history: No new complaints from the patient. No fevers overnight. Pain controlled. Physical Exam Vital signs: Vital Signs 06/02/18 16:00 06/02/18 20:00 06/03/18 00:00 Temperature 97.8 F 98.0 F 98.2 F Pulse Rate 79 85 84 Respiratory Rate 17 18 18 Blood Pressure 143/95 H 145/84 H 138/81 Pulse Oximetry 98 99 98 06/03/18 04:00 06/03/18 08:00 Temperature 98.9 F 98.1 F Pulse Rate 80 79 Respiratory Rate 18 18 Blood Pressure 155/89 H 151/91 H Pulse Oximetry 99 98 Intake & Output 06/02/18 06/03/18 06/03/18 18:59 06:59 18:59 Intake Total 1175 / 1175 100 / 100 Balance 1175 / 1175 100 / 100 Weight 199.9 kg Intake: IV 575 / 575 100 / 100 Maxipime Inj 2,000 MG In NS Inj 100 / 100 100 ML @ 200 mls/hr IV.SIG Q12H [facility] Rx#:[id number] Zosyn 3.375 GM Premix 50 ML @ 50 / 50 100 mls/hr IV.SIG Q6H [facility] Rx#: [id number] Vancomycin Inj 2,500 MG In NS 525 / 525 Inj 500 ML @ 175 mls/hr IV.SIG Q24H [facility] Rx#:[id number] Oral 600 / 600 Other: # Voids 3 6 Date of Last Bowel Movement 06/01/18 06/01/18 # Bowel Movements 0 Narrative: GENERAL: NAD, A&Ox3 HEAD: Normocephalic. NECK: Supple, trachea midline. No lymphadenopathy. EYES: No scleral icterus. No injection or drainage. CARDIOVASCULAR: Regular rate and rhythm without murmurs, gallops, or rubs. RESPIRATORY: Breath sounds equal bilaterally. No accessory muscle use. GASTROINTESTINAL: Abdomen soft, non-tender, nondistended. MUSCULOSKELETAL: No cyanosis, or edema. Right lower extremity is bandaged SKIN: Warm and dry. NEURO: No focal neurological deficits. Results - Labs CBC & Chem 7: 06/01/18 08:00 06/03/18 07:14 Laboratory Results - last 24 hr 06/02/18 06/02/18 06/03/18 17:54 19:46 07:14 BUN 10 Creatinine 1.98 H Estimated GFR 33 L POC Glucose 192 H 191 H 06/03/18 11:23 BUN Creatinine Estimated GFR POC Glucose 123 H - Procedures (1) Abscess of right lower leg Date of procedure: 05/29/18 Procedure: Incision and drainage of abscess right leg Large cavernous abscess noted to right proximal medial calf level. Incision made 4cm and irrigation with 3L normal saline gravity irrigation with , followed by packing with a whole container of 1'' iodoform gauze, abd pads x 6, cast padding, coban compression bandage to right foot/leg. Anticipate repeat I&D early week Await cultures Keep compression bandage intact Anesthesia: GETA Surgeon: Adriana Soto DPM Nursing Manager: staff Estimated blood loss (mL): 30 Pathology: other (culture right leg) Condition: stable Disposition: PACU Documented By: Adriana Soto DPM 05/29/18 1252 Assessment and Plan - Assessment (1) Left leg cellulitis Code(s): L03.116 - Cellulitis of left lower limb Status: Acute (2) Sepsis Code(s): A41.9 - Sepsis, unspecified organism Status: Acute (3) Uncontrolled diabetes mellitus Code(s): E11.65 - Type 2 diabetes mellitus with hyperglycemia Status: Acute (4) Obesity Code(s): E66.9 - Obesity, unspecified Status: Chronic (5) BELEM (acute kidney injury) Code(s): N17.9 - Acute kidney failure, unspecified Status: Acute (6) Non-compliance Code(s): Z91.19 - Patient's noncompliance with other medical treatment and regimen Status: Chronic - Plan 43-year-old female admitted secondary to uncontrolled diabetes with cellulitis Continued gradual improvement, clinically. No acute changes overnight. Sepsis Right lower extremity cellulitis Right lower extremity abscess Podiatry following Repeat podiatry evaluation plan on 06/03/2018 Continue Zosyn Continue vancomycin Continue pain control Follow cultures Diabetes mellitus type 2 Follow blood sugars Insulin sliding scale Diabetic diet NPH 20 units subcutaneously twice daily BELEM Improving Follow renal function HYPOKALEMIA replace and monitor as needed Obesity Weight loss recommended. DVT prophylaxis Heparin SQ Discharge Planning: Awaiting Podiatry clearance Potential HHC and Wound Care (2) Sepsis Qualifiers: Sepsis type: sepsis due to unspecified organism Qualified Code(s): A41.9 - Sepsis, unspecified organism (3) Uncontrolled diabetes mellitus Qualifiers: Diabetes mellitus type: type 2 Glycemic state: with hyperglycemia Qualified Code(s): E11.65 - Type 2 diabetes mellitus with hyperglycemia (4) Obesity Qualifiers: Obesity type: due to excess calories
[2018-06-03] MEDS: Vancomycin Inj 2,500 MG in Sodium Chlor 0.9% Inj 500 ML IV.SIG SCH (14:52)
[2018-06-03] MEDS: Fluconazole 100 MG Tablet PO SCH (14:55)
--- NOTE | 2018-06-03 21:33 | P.PNPOD ---
Subjective Interval history: s/p Right leg I and D Doing much better and pain controlled. Physical Exam Vital signs: Vital Signs 06/03/18 00:00 06/03/18 04:00 06/03/18 08:00 Temperature 98.2 F 98.9 F 98.1 F Pulse Rate 84 80 79 Respiratory Rate 18 18 18 Blood Pressure 138/81 155/89 H 151/91 H Pulse Oximetry 98 99 98 06/03/18 12:00 06/03/18 16:00 Temperature 97.9 F 98.2 F Pulse Rate 80 92 H Respiratory Rate 18 18 Blood Pressure 155/88 H Pulse Oximetry 96 97 Intake & Output 06/03/18 06/03/18 06/04/18 06:59 18:59 06:59 Intake Total 100 / 100 1585 / 1585 Output Total 1200 / 1200 Balance 100 / 100 385 / 385 Weight 199.9 kg Intake: IV 100 / 100 625 / 625 Maxipime Inj 2,000 MG In NS Inj 100 / 100 100 / 100 100 ML @ 200 mls/hr IV.SIG Q12H [facility] Rx#:[id number] Vancomycin Inj 2,500 MG In NS 525 / 525 Inj 500 ML @ 175 mls/hr IV.SIG Q24H [facility] Rx#:[id number] Oral 960 / 960 Output: Urine 1200 / 1200 Other: # Voids 6 Date of Last Bowel Movement 06/01/18 06/01/18 Narrative: RLE + serous drainage. No purulence Mild POP. No erythema. Warm to warm. Medications and Allergies Active Medications: Active Medications Acetaminophen (Tylenol) 650 mg PO Q4H PRN PRN Reason: Temp > 100.4, MAIN, Pain1-2 Last Admin: 05/26/18 18:37 Dose: 650 mg Hydrocodone Bitart/Acetaminophen ([place] 7.5/325) 1 tab PO Q4H PRN PRN Reason: Pain 7-10 Last Admin: 05/30/18 17:49 Dose: 1 tab Hydrocodone Bitart/Acetaminophen ([place] 5/325) 1 tab PO Q4H PRN PRN Reason: Pain 3-6 Last Admin: 05/25/18 17:51 Dose: 1 tab Dextrose (D50w Vial) 50 ml IV.PUSH UNSCH PRN PRN Reason: PER HYPOGLYCEMIA PROTOCOL Fluconazole (Diflucan) 100 mg PO Q24H [facility] Last Admin: 06/03/18 14:55 Dose: 100 mg Glucagon (Glucagon Inj) 1 mg OTHER PRN PRN PRN Reason: for Hypoglycemia Protocol Heparin Sodium (Porcine) (Heparin Inj) 5,000 units SQ Q12HR [facility] Last Admin: 06/03/18 21:11 Dose: 5,000 units Sodium Chloride (Ns Inj) 1,000 mls @ 100 mls/hr IV.CONT .Q10H [facility] Last Infusion: 05/28/18 12:23 Dose: Infused Sodium Chloride (Ns Inj) 500 mls @ 30 mls/hr IV.SIG .Q10H [facility] Last Admin: 05/29/18 11:25 Dose: Not Given Vancomycin HCl 2,500 mg/ (Sodium Chloride) 525 mls @ 175 mls/hr IV.SIG Q24H [facility] Last Infusion: 06/03/18 17:50 Dose: Infused Cefepime HCl 2,000 mg/ Sodium (Chloride) 100 mls @ 200 mls/hr IV.SIG Q12H [facility] Last Infusion: 06/03/18 18:22 Dose: Infused Insulin Aspart (Novolog Insulin Correctional Sugar Inj) 0 unit SQ ACHS [facility]; Protocol Last Admin: 06/03/18 21:11 Dose: 2 unit Insulin Human NPH (Novolin N Inj) 20 units SQ BID@0800,1700 [facility] Last Admin: 06/03/18 17:52 Dose: 20 units Morphine Sulfate (Morphine Inj) 2 mg IV.PUSH Q4H PRN PRN Reason: BREAKTHROUGH PAIN Last Admin: 05/24/18 05:26 Dose: 2 mg Ondansetron HCl (Zofran Inj) 4 mg IV.PUSH Q6H PRN PRN Reason: NAUSEA OR VOMITING Last Admin: 05/24/18 23:23 Dose: 4 mg Pharmacy Profile Note (Vancomycin Consult Pharmacy) 1 each OTHER UNSCH PRN PRN Reason: Pharmacy to dose Potassium Chloride (Klor-Con 10) 60 meq PO BID [facility] Last Admin: 06/03/18 21:12 Dose: Not Given Sodium Chloride (Ns Flush) 2 ml IV.FLUSH PRN PRN PRN Reason: FLUSH AFTER USING IV ACCESS Last Admin: 06/02/18 10:17 Dose: 2 ml Allergies Allergy/AdvReac Type Severity Reaction Status Date / Time No Known Allergies Allergy Verified 09/02/18 18:39 Results - Labs CBC & Chem 7: 06/01/18 08:00 06/03/18 07:14 Laboratory Results - last 24 hr 06/03/18 06/03/18 06/03/18 07:14 11:23 17:07 BUN 10 Creatinine 1.98 H Estimated GFR 33 L POC Glucose 123 H 168 H - Procedures (1) Abscess of right lower leg Date of procedure: 05/29/18 Procedure: Incision and drainage of abscess right leg Large cavernous abscess noted to right proximal medial calf level. Incision made 4cm and irrigation with 3L normal saline gravity irrigation with , followed by packing with a whole container of 1'' iodoform gauze, abd pads x 6, cast padding, coban compression bandage to right foot/leg. Anticipate repeat I&D early week Await cultures Keep compression bandage intact Anesthesia: GETA Surgeon: Adriana Soto DPM Operator Technician: staff Estimated blood loss (mL): 30 Pathology: other (culture right leg) Condition: stable Disposition: PACU Documented By: Adriana Soto DPM 05/29/18 1252 Assessment and Plan - Assessment (1) Abscess of right lower leg Code(s): L02.415 - Cutaneous abscess of right lower limb Status: Acute - Plan Contique packing and dressing changes daily. No plan for OR return Plan d/c if drainage continue to decrease.
[2018-06-04] MEDS: Heparin - SQ 10,000 UNITS/ML Vial SQ SCH ×2 (08:20→22:21)
[2018-06-04] MEDS: Insulin NovoLOG Aspart Correctional Sugar Inj SQ SCH ×4 (08:20→22:22)
--- NOTE | 2018-06-04 10:53 | P.PNIM ---
Subjective Interval history: Further monitoring patient's right lower extremity wound is ongoing. Patient will have a repeat evaluation tomorrow by podiatry. She reports that she will be able to do her own wound care if topical dressings is the only treatment. She cannot do wound packing. Physical Exam Vital signs: Vital Signs 06/03/18 12:00 06/03/18 16:00 06/03/18 20:00 Temperature 97.9 F 98.2 F 97.9 F Pulse Rate 80 92 H 77 Respiratory Rate 18 Blood Pressure 155/88 H 140/80 Pulse Oximetry 96 97 100 06/04/18 00:00 06/04/18 04:00 06/04/18 08:00 Temperature 98.1 F 98.4 F 97.7 F Pulse Rate 85 85 85 Respiratory Rate 18 18 20 Blood Pressure 161/94 H 157/92 H 150/79 H Pulse Oximetry 98 96 94 L Intake & Output 06/03/18 06/04/18 06/04/18 18:59 06:59 18:59 Intake Total 1585 / 1585 100 / 100 Output Total 1200 / 1200 Balance 385 / 385 100 / 100 Weight 200 kg Intake: IV 625 / 625 100 / 100 Maxipime Inj 2,000 MG In NS Inj 100 / 100 100 / 100 100 ML @ 200 mls/hr IV.SIG Q12H [facility] Rx#:[id number] Vancomycin Inj 2,500 MG In NS 525 / 525 Inj 500 ML @ 175 mls/hr IV.SIG Q24H [facility] Rx#:[id number] Oral 960 / 960 Output: Urine 1200 / 1200 Other: Date of Last Bowel Movement 06/01/18 06/01/18 Narrative: GENERAL: NAD, A&Ox3 HEAD: Normocephalic. NECK: Supple, trachea midline. No lymphadenopathy. EYES: No scleral icterus. No injection or drainage. CARDIOVASCULAR: Regular rate and rhythm without murmurs, gallops, or rubs. RESPIRATORY: Breath sounds equal bilaterally. No accessory muscle use. GASTROINTESTINAL: Abdomen soft, non-tender, nondistended. MUSCULOSKELETAL: No cyanosis, or edema. Right lower extremity is bandaged SKIN: Warm and dry. NEURO: No focal neurological deficits. Results - Labs CBC & Chem 7: 06/01/18 08:00 06/04/18 03:42 Laboratory Results - last 24 hr 06/03/18 06/03/18 06/04/18 11:23 17:07 03:42 BUN 11 Creatinine 1.94 H Estimated GFR 34 L POC Glucose 123 H 168 H Random Vancomycin 30.0 06/04/18 07:30 BUN Creatinine Estimated GFR POC Glucose 129 H Random Vancomycin - Procedures (1) Abscess of right lower leg Date of procedure: 05/29/18 Procedure: Incision and drainage of abscess right leg Large cavernous abscess noted to right proximal medial calf level. Incision made 4cm and irrigation with 3L normal saline gravity irrigation with , followed by packing with a whole container of 1'' iodoform gauze, abd pads x 6, cast padding, coban compression bandage to right foot/leg. Anticipate repeat I&D early week Await cultures Keep compression bandage intact Anesthesia: GETA Surgeon: Adriana Soto DPM Perishable Fruit Inspector: staff Estimated blood loss (mL): 30 Pathology: other (culture right leg) Condition: stable Disposition: PACU Documented By: Adriana Soto DPM 05/29/18 1252 Assessment and Plan - Assessment (1) Left leg cellulitis Code(s): L03.116 - Cellulitis of left lower limb Status: Acute (2) Sepsis Code(s): A41.9 - Sepsis, unspecified organism Status: Acute (3) Uncontrolled diabetes mellitus Code(s): E11.65 - Type 2 diabetes mellitus with hyperglycemia Status: Acute (4) Obesity Code(s): E66.9 - Obesity, unspecified Status: Chronic (5) BELEM (acute kidney injury) Code(s): N17.9 - Acute kidney failure, unspecified Status: Acute (6) Non-compliance Code(s): Z91.19 - Patient's noncompliance with other medical treatment and regimen Status: Chronic - Plan 43-year-old female admitted secondary to uncontrolled diabetes with cellulitis Repeat podiatry evaluation pending for tomorrow. Monitoring for improvement in wound with decreased drainage. Continued gradual improvement, clinically. No acute changes overnight. Sepsis Right lower extremity cellulitis Right lower extremity abscess Podiatry following Repeat podiatry evaluation plan on 06/03/2018 Continue Zosyn Continue vancomycin Continue pain control Follow cultures Diabetes mellitus type 2 Follow blood sugars Insulin sliding scale Diabetic diet NPH 20 units subcutaneously twice daily BELEM Improving Follow renal function HYPOKALEMIA replace and monitor as needed Obesity Weight loss recommended. DVT prophylaxis Heparin SQ Discharge Planning: Potential discharge in 1-2 days awaiting Podiatry clearance (2) Sepsis Qualifiers: Sepsis type: sepsis due to unspecified organism Qualified Code(s): A41.9 - Sepsis, unspecified organism (3) Uncontrolled diabetes mellitus Qualifiers: Diabetes mellitus type: type 2 Glycemic state: with hyperglycemia Qualified Code(s): E11.65 - Type 2 diabetes mellitus with hyperglycemia (4) Obesity Qualifiers: Obesity type: due to excess calories
[2018-06-04] MEDS: Fluconazole 100 MG Tablet PO SCH (13:02)
[2018-06-04] MEDS: Vancomycin Inj 2,500 MG in Sodium Chlor 0.9% Inj 500 ML IV.SIG SCH (13:04)
--- NOTE | 2018-06-04 19:29 | MP ---
cc: Adriana Soto DPM DATE OF OPERATION: 05/29/2018 INDICATION: The patient presented initially with swelling and redness to the right leg. She was noted to have some drainage coming from the area and underwent compression bandages with continued drainage. MRI was negative for abscess, but upon further exploration with wound care as well as podiatry, it was noted that the patient appeared to have a larger than met the eye abscess and it was recommended for the patient to undergo incision and drainage of abscess, right leg, and exploration of this area. I discussed the risks, benefits, potential complications with the patient. She agreed to move forward with incision and drainage of abscess, right leg. DESCRIPTION OF PROCEDURE: She was seen in preop holding by myself, nursing staff and anesthesia, where the correct patient, side and site were all confirmed to be correct and the right leg. She was then taken to the surgical suite in supine position. The right leg was prepped and draped in normal sterile fashion, followed by attention directed to the medial aspect of the right calf where there was noted to be a small open area approximately 1 cm in diameter with purulent drainage coming from the area. An incision was made approximately 4 cm in length at this area, followed by exploration of a large cavernous abscess area that extended from the proximal medial calf up toward the knee and down towards the ankle approximately 12 x 15 x 3 cm in depth. The patient's leg was extremely large. Three liters of normal saline were used to irrigate through the area with gravity irrigation, followed by packing with an entire container of 1 inch iodoform gauze, followed by ABD pads x 6, cast padding, Coban compression bandage to the right lower extremity. She will likely need to undergo continued irrigation and packing changes versus repeat irrigation and debridement later on to be determined by the doctor tong carrier to examine the leg in early week next week. We will await these cultures that were taken today and keep the compression bandage intact with the help of wound care. SHORT OPERATIVE NOTE SURGEON: Adriana Soto DPM WEFT STRAIGHTENER: Staff. PREOPERATIVE DIAGNOSIS: Abscess, right lower leg. POSTOPERATIVE DIAGNOSIS: Abscess, right lower leg. PROCEDURE PERFORMED: Incision and drainage of abscess, right leg. TYPE OF ANESTHESIA: General endotracheal anesthesia. ESTIMATED BLOOD LOSS: 30 mL. PATHOLOGY: Culture of right leg. CONDITION: Stable to PACU. DISPOSITION: Weightbearing as tolerated to right lower extremity. Await cultures to determine antibiotics and possible repeat I and D of right leg versus continued irrigation and packing with compression bandage changes to be determined next week. JUNAID Manuel , 03:37 PM , 03:45 PM
[2018-06-05] MEDS: Heparin - SQ 10,000 UNITS/ML Vial SQ SCH ×2 (09:13→22:21)
[2018-06-05] MEDS: Insulin NovoLOG Aspart Correctional Sugar Inj SQ SCH ×4 (09:13→22:21)
[2018-06-05] MEDS ORDERED: Pharmacy Ordered Lab Info OTHER ONE (13:45)
--- NOTE | 2018-06-05 13:50 | P.PNPOD ---
Subjective Interval history: s/p Right leg I and D Dr Do 05/29/18 Doing well at bedside this am. Physical Exam Vital signs: Vital Signs 06/04/18 16:00 06/04/18 20:00 06/05/18 00:00 Temperature 98.2 F 97.9 F 98.5 F Pulse Rate 79 81 89 Respiratory Rate 18 20 20 Blood Pressure 148/77 H 168/94 H 168/83 H Pulse Oximetry 97 96 99 06/05/18 04:00 06/05/18 08:00 06/05/18 12:00 Temperature 98.6 F 98.3 F 98.2 F Pulse Rate 76 81 80 Respiratory Rate 20 20 20 Blood Pressure 161/81 H 160/99 H 150/95 H Pulse Oximetry 100 98 98 Intake & Output 06/04/18 06/05/18 06/05/18 18:59 06:59 18:59 Intake Total 1105 / 1105 100 / 100 Balance 1105 / 1105 100 / 100 Weight 200.6 kg Intake: IV 625 / 625 100 / 100 Maxipime Inj 2,000 MG In NS Inj 100 / 100 100 / 100 100 ML @ 200 mls/hr IV.SIG Q12H [facility] Rx#:[id number] Vancomycin Inj 2,500 MG In NS 525 / 525 Inj 500 ML @ 175 mls/hr IV.SIG Q24H [facility] Rx#:[id number] Oral 480 / 480 Other: Date of Last Bowel Movement 06/02/18 06/02/18 Narrative: RLE No purulence, no erythema. Minimal pain. Open wound 3 x 4 cm + probing at the 9 Oclock NVS unchanged. Medications and Allergies Active Medications: Active Medications Acetaminophen (Tylenol) 650 mg PO Q4H PRN PRN Reason: Temp > 100.4, MAIN, Pain1-2 Last Admin: 05/26/18 18:37 Dose: 650 mg Hydrocodone Bitart/Acetaminophen ([place] 7.5/325) 1 tab PO Q4H PRN PRN Reason: Pain 7-10 Last Admin: 05/30/18 17:49 Dose: 1 tab Hydrocodone Bitart/Acetaminophen ([place] 5/325) 1 tab PO Q4H PRN PRN Reason: Pain 3-6 Last Admin: 05/25/18 17:51 Dose: 1 tab Dextrose (D50w Vial) 50 ml IV.PUSH UNSCH PRN PRN Reason: PER HYPOGLYCEMIA PROTOCOL Fluconazole (Diflucan) 100 mg PO Q24H [facility] Last Admin: 06/04/18 13:02 Dose: 100 mg Glucagon (Glucagon Inj) 1 mg OTHER PRN PRN PRN Reason: for Hypoglycemia Protocol Heparin Sodium (Porcine) (Heparin Inj) 5,000 units SQ Q12HR [facility] Last Admin: 06/05/18 09:13 Dose: 5,000 units Sodium Chloride (Ns Inj) 1,000 mls @ 100 mls/hr IV.CONT .Q10H [facility] Last Infusion: 05/28/18 12:23 Dose: Infused Sodium Chloride (Ns Inj) 500 mls @ 30 mls/hr IV.SIG .Q10H [facility] Last Admin: 05/29/18 11:25 Dose: Not Given Cefepime HCl 2,000 mg/ Sodium (Chloride) 100 mls @ 200 mls/hr IV.SIG Q12H [facility] Last Infusion: 06/05/18 06:10 Dose: Infused Vancomycin HCl 2,500 mg/ (Sodium Chloride) 525 mls @ 175 mls/hr IV.SIG Q24H [facility] Last Infusion: 06/04/18 16:04 Dose: Infused Insulin Aspart (Novolog Insulin Correctional Sugar Inj) 0 unit SQ ACHS [facility]; Protocol Last Admin: 06/05/18 09:13 Dose: Not Given Insulin Human NPH (Novolin N Inj) 20 units SQ BID@0800,1700 [facility] Last Admin: 06/05/18 09:12 Dose: 20 units Miscellaneous Information ([facility] Ordered Lab Info) 0 each OTHER ONCE ONE Stop: 06/05/18 13:46 Morphine Sulfate (Morphine Inj) 2 mg IV.PUSH Q4H PRN PRN Reason: BREAKTHROUGH PAIN Last Admin: 05/24/18 05:26 Dose: 2 mg Ondansetron HCl (Zofran Inj) 4 mg IV.PUSH Q6H PRN PRN Reason: NAUSEA OR VOMITING Last Admin: 05/24/18 23:23 Dose: 4 mg Pharmacy Profile Note (Vancomycin Consult Pharmacy) 1 each OTHER UNSCH PRN PRN Reason: Pharmacy to dose Potassium Chloride (Klor-Con 10) 60 meq PO BID [facility] Last Admin: 06/05/18 09:14 Dose: Not Given Sodium Chloride (Ns Flush) 2 ml IV.FLUSH PRN PRN PRN Reason: FLUSH AFTER USING IV ACCESS Last Admin: 06/02/18 10:17 Dose: 2 ml Allergies Allergy/AdvReac Type Severity Reaction Status Date / Time No Known Allergies Allergy Verified 05/23/18 18:39 Results - Labs CBC & Chem 7: 06/01/18 08:00 06/05/18 06:36 Laboratory Results - last 24 hr 06/04/18 06/04/18 06/05/18 15:46 19:57 06:36 BUN 14 Creatinine 2.06 H Estimated GFR 32 L POC Glucose 161 H 214 H 06/05/18 08:12 BUN Creatinine Estimated GFR POC Glucose 148 H - Procedures (1) Abscess of right lower leg Date of procedure: 05/29/18 Procedure: Incision and drainage of abscess right leg Large cavernous abscess noted to right proximal medial calf level. Incision made 4cm and irrigation with 3L normal saline gravity irrigation with , followed by packing with a whole container of 1'' iodoform gauze, abd pads x 6, cast padding, coban compression bandage to right foot/leg. Anticipate repeat I&D early week Await cultures Keep compression bandage intact Anesthesia: GETA Surgeon: Adriana Soto DPM Neurophysiology Tech: staff Estimated blood loss (mL): 30 Pathology: other (culture right leg) Condition: stable Disposition: PACU Documented By: Adriana Soto DPM 05/29/18 1252 Assessment and Plan - Assessment (1) Abscess of right lower leg Code(s): L02.415 - Cutaneous abscess of right lower limb Status: Acute - Plan Contique packing and dressing changes daily. OK to d/c per Podiatry f/u with in 1 week of d/c Needs [facility] for daily dressing change with 1/4 packing and 4x4 and abd.
[2018-06-05] MEDS: Fluconazole 100 MG Tablet PO SCH (13:55)
[2018-06-05] MEDS: Vancomycin Inj 2,500 MG in Sodium Chlor 0.9% Inj 500 ML IV.SIG SCH ×2 (14:00→14:47)
--- NOTE | 2018-06-05 14:26 | P.PNIM ---
Subjective Interval history: Arrangement for home health care in process. Otherwise she has been improving. Cleared by podiatry today. Physical Exam Vital signs: Vital Signs 06/04/18 16:00 06/04/18 20:00 06/05/18 00:00 Temperature 98.2 F 97.9 F 98.5 F Pulse Rate 79 81 89 Respiratory Rate 18 20 20 Blood Pressure 148/77 H 168/94 H 168/83 H Pulse Oximetry 97 96 99 06/05/18 04:00 06/05/18 08:00 06/05/18 12:00 Temperature 98.6 F 98.3 F 98.2 F Pulse Rate 76 81 80 Respiratory Rate 20 20 20 Blood Pressure 161/81 H 160/99 H 150/95 H Pulse Oximetry 100 98 98 Intake & Output 06/04/18 06/05/18 06/05/18 18:59 06:59 18:59 Intake Total 1105 / 1105 100 / 100 Balance 1105 / 1105 100 / 100 Weight 200.6 kg Intake: IV 625 / 625 100 / 100 Maxipime Inj 2,000 MG In NS Inj 100 / 100 100 / 100 100 ML @ 200 mls/hr IV.SIG Q12H [facility] Rx#:[id number] Vancomycin Inj 2,500 MG In NS 525 / 525 Inj 500 ML @ 175 mls/hr IV.SIG Q24H [facility] Rx#:[id number] Oral 480 / 480 Other: Date of Last Bowel Movement 06/02/18 06/02/18 Narrative: GENERAL: NAD, A&Ox3 HEAD: Normocephalic. NECK: Supple, trachea midline. No lymphadenopathy. EYES: No scleral icterus. No injection or drainage. CARDIOVASCULAR: Regular rate and rhythm without murmurs, gallops, or rubs. RESPIRATORY: Breath sounds equal bilaterally. No accessory muscle use. GASTROINTESTINAL: Abdomen soft, non-tender, nondistended. MUSCULOSKELETAL: No cyanosis, or edema. Right lower extremity is bandaged SKIN: Warm and dry. NEURO: No focal neurological deficits. Results - Labs CBC & Chem 7: 06/01/18 08:00 06/05/18 06:36 Laboratory Results - last 24 hr 06/04/18 06/04/18 06/05/18 15:46 19:57 06:36 BUN 14 Creatinine 2.06 H Estimated GFR 32 L POC Glucose 161 H 214 H 06/05/18 08:12 BUN Creatinine Estimated GFR POC Glucose 148 H Microbiology 05/29/18 12:25 Abscess - Leg Fungal Smear - Final No fungal elements seen 05/29/18 12:25 Abscess - Leg Fungal Culture - Preliminary No growth in 1 week 05/29/18 12:25 Abscess - Leg Acid Fast Bacilli Smear - Final No acid fast bacilli seen 05/29/18 12:25 Abscess - Leg Mycobacterial Culture - Preliminary No growth in 1 week - Procedures (1) Abscess of right lower leg Date of procedure: 05/29/18 Procedure: Incision and drainage of abscess right leg Large cavernous abscess noted to right proximal medial calf level. Incision made 4cm and irrigation with 3L normal saline gravity irrigation with , followed by packing with a whole container of 1'' iodoform gauze, abd pads x 6, cast padding, coban compression bandage to right foot/leg. Anticipate repeat I&D early week Await cultures Keep compression bandage intact Anesthesia: GETA Surgeon: Adriana Soto DPM Tip Finisher: staff Estimated blood loss (mL): 30 Pathology: other (culture right leg) Condition: stable Disposition: PACU Documented By: Adriana Soto DPM 05/29/18 1252 Assessment and Plan - Assessment (1) Left leg cellulitis Code(s): L03.116 - Cellulitis of left lower limb Status: Acute (2) Sepsis Code(s): A41.9 - Sepsis, unspecified organism Status: Acute (3) Uncontrolled diabetes mellitus Code(s): E11.65 - Type 2 diabetes mellitus with hyperglycemia Status: Acute (4) Obesity Code(s): E66.9 - Obesity, unspecified Status: Chronic (5) BELEM (acute kidney injury) Code(s): N17.9 - Acute kidney failure, unspecified Status: Acute (6) Non-compliance Code(s): Z91.19 - Patient's noncompliance with other medical treatment and regimen Status: Chronic - Plan 43-year-old female admitted secondary to uncontrolled diabetes with cellulitis Podiatry cleared for discharge. Home health care arrangements needed prior to discharge, pending. Sepsis Right lower extremity cellulitis Right lower extremity abscess Podiatry following Repeat podiatry evaluation plan on 06/03/2018 Continue Zosyn Continue vancomycin Continue pain control Follow cultures Diabetes mellitus type 2 Follow blood sugars Insulin sliding scale Diabetic diet NPH 20 units subcutaneously twice daily BELEM Improving Follow renal function HYPOKALEMIA replace and monitor as needed Obesity Weight loss recommended. DVT prophylaxis Heparin SQ Discharge Planning: Potential discharge in 1-2 days awaiting Podiatry clearance (2) Sepsis Qualifiers: Sepsis type: sepsis due to unspecified organism Qualified Code(s): A41.9 - Sepsis, unspecified organism (3) Uncontrolled diabetes mellitus Qualifiers: Diabetes mellitus type: type 2 Glycemic state: with hyperglycemia Qualified Code(s): E11.65 - Type 2 diabetes mellitus with hyperglycemia (4) Obesity Qualifiers: Obesity type: due to excess calories
[2018-06-05 14:31] LABS: Calcium 8.3 mg/dL (8.5-10.1); Carbon Dioxide 24.6 meq/L (21.0-32.0); Potassium 3.9 meq/L (3.5-5.1)
[2018-06-05 14:32] LABS: Vancomycin,Trough 27.2 mcg/mL (5.0-10.0)
[2018-06-06] MEDS: Insulin NovoLOG Aspart Correctional Sugar Inj SQ SCH ×4 (08:34→21:33)
[2018-06-06] MEDS: Heparin - SQ 10,000 UNITS/ML Vial SQ SCH ×2 (10:05→20:34)
--- NOTE | 2018-06-06 12:03 | P.PNIM ---
Subjective Interval history: Mrs. Menon is feeling better through time. Outpatient arrangements for dressing changes are pending. Once arrangements are present patient will discharge. Physical Exam Vital signs: Vital Signs 06/05/18 16:00 06/05/18 16:01 06/05/18 20:00 Temperature 97.2 F L 97.8 F Pulse Rate 83 79 84 Respiratory Rate 20 20 Blood Pressure 163/86 H 133/81 Pulse Oximetry 97 97 06/06/18 00:00 06/06/18 04:00 06/06/18 08:00 Temperature 98 F 98.6 F 98.2 F Pulse Rate 75 78 82 Respiratory Rate 20 20 22 Blood Pressure 158/99 H 147/94 H 147/93 H Pulse Oximetry 99 100 97 Intake & Output 06/05/18 06/06/18 06/06/18 18:59 06:59 18:59 Intake Total 1060 / 1060 100 / 100 Output Total 2 / 2 Balance 1060 / 1060 98 / 98 Weight 198 kg Intake: IV 100 / 100 100 / 100 Maxipime Inj 2,000 MG In NS Inj 100 / 100 100 / 100 100 ML @ 200 mls/hr IV.SIG Q12H [facility] Rx#:[id number] Oral 960 / 960 Output: Urine 2 / 2 Other: # Voids 4 2 Date of Last Bowel Movement 06/02/18 06/02/18 Narrative: GENERAL: NAD, A&Ox3 HEAD: Normocephalic. NECK: Supple, trachea midline. No lymphadenopathy. EYES: No scleral icterus. No injection or drainage. CARDIOVASCULAR: Regular rate and rhythm without murmurs, gallops, or rubs. RESPIRATORY: Breath sounds equal bilaterally. No accessory muscle use. GASTROINTESTINAL: Abdomen soft, non-tender, nondistended. MUSCULOSKELETAL: No cyanosis, or edema. Right lower extremity is bandaged SKIN: Warm and dry. NEURO: No focal neurological deficits. Results - Labs CBC & Chem 7: 06/01/18 08:00 06/06/18 06:35 Laboratory Results - last 24 hr 06/05/18 06/06/18 06/06/18 13:55 06:35 06:35 Sodium 143 Potassium 3.9 Chloride 110 H Carbon Dioxide 24.6 Anion Gap 8 BUN 15 14 Creatinine 1.93 H 1.94 H Estimated GFR 34 L 34 L Random Glucose 133 H Calcium 8.3 L Vancomycin Trough 27.2 H Random Vancomycin 21.5 Microbiology 05/29/18 12:25 Abscess - Leg Fungal Smear - Final No fungal elements seen 05/29/18 12:25 Abscess - Leg Fungal Culture - Preliminary No growth in 1 week 05/29/18 12:25 Abscess - Leg Acid Fast Bacilli Smear - Final No acid fast bacilli seen 05/29/18 12:25 Abscess - Leg Mycobacterial Culture - Preliminary No growth in 1 week - Procedures (1) Abscess of right lower leg Date of procedure: 05/29/18 Procedure: Incision and drainage of abscess right leg Large cavernous abscess noted to right proximal medial calf level. Incision made 4cm and irrigation with 3L normal saline gravity irrigation with , followed by packing with a whole container of 1'' iodoform gauze, abd pads x 6, cast padding, coban compression bandage to right foot/leg. Anticipate repeat I&D early week Await cultures Keep compression bandage intact Anesthesia: GETA Surgeon: Adriana Soto DPM Legal Contracts Specialist: staff Estimated blood loss (mL): 30 Pathology: other (culture right leg) Condition: stable Disposition: PACU Documented By: Adriana Soto DPM 05/29/18 1252 Assessment and Plan - Assessment (1) Left leg cellulitis Code(s): L03.116 - Cellulitis of left lower limb Status: Acute (2) Sepsis Code(s): A41.9 - Sepsis, unspecified organism Status: Acute (3) Uncontrolled diabetes mellitus Code(s): E11.65 - Type 2 diabetes mellitus with hyperglycemia Status: Acute (4) Obesity Code(s): E66.9 - Obesity, unspecified Status: Chronic (5) BELEM (acute kidney injury) Code(s): N17.9 - Acute kidney failure, unspecified Status: Acute (6) Non-compliance Code(s): Z91.19 - Patient's noncompliance with other medical treatment and regimen Status: Chronic - Plan 43-year-old female admitted secondary to uncontrolled diabetes with cellulitis Podiatry has cleared this patient for discharge. Home health arrangements pending. Once home health arrangements are made for dressing changes patient will be cleared for discharge from medical standpoint. Sepsis Right lower extremity cellulitis Right lower extremity abscess Podiatry following Repeat podiatry evaluation plan on 06/03/2018 Continue Zosyn Continue vancomycin Continue pain control Follow cultures Diabetes mellitus type 2 Follow blood sugars Insulin sliding scale Diabetic diet NPH 20 units subcutaneously twice daily BELEM Improving Follow renal function HYPOKALEMIA replace and monitor as needed Obesity Weight loss recommended. DVT prophylaxis Heparin SQ Discharge Planning: Discharge pending home health wound care arrangements. (2) Sepsis Qualifiers: Sepsis type: sepsis due to unspecified organism Qualified Code(s): A41.9 - Sepsis, unspecified organism (3) Uncontrolled diabetes mellitus Qualifiers: Diabetes mellitus type: type 2 Glycemic state: with hyperglycemia Qualified Code(s): E11.65 - Type 2 diabetes mellitus with hyperglycemia (4) Obesity Qualifiers: Obesity type: due to excess calories
[2018-06-06] MEDS: Fluconazole 100 MG Tablet PO SCH (13:37)
[2018-06-07 06:58] LABS: Vancomycin,Random 12.7 Comment
[2018-06-07] MEDS: Insulin NovoLOG Aspart Correctional Sugar Inj SQ SCH ×4 (08:59→21:34)
[2018-06-07] MEDS: Heparin - SQ 10,000 UNITS/ML Vial SQ SCH ×2 (08:59→21:34)
[2018-06-07] MEDS: Vancomycin Inj 1,750 MG in Sodium Chlor 0.9% Inj 500 ML IV.SIG SCH (09:00)
[2018-06-07] MEDS: Fluconazole 100 MG Tablet PO SCH (13:54)
--- NOTE | 2018-06-07 16:23 | P.PNIM ---
Subjective Interval history: Patient unable to care for her wounds herself. Not yet able to discharge. No new complaints from the patient. Physical Exam Vital signs: Vital Signs 06/06/18 20:00 06/07/18 00:00 06/07/18 04:00 Temperature 97.7 F 97.7 F 98.1 F Pulse Rate 81 82 78 Respiratory Rate 17 17 21 Blood Pressure 154/79 H 148/74 H 162/97 H Pulse Oximetry 100 100 100 06/07/18 08:00 06/07/18 11:39 06/07/18 12:00 Temperature 98.0 F 98.1 F Pulse Rate 82 88 Respiratory Rate 16 16 Blood Pressure 145/74 H 155/77 H Pulse Oximetry 96 99 96 06/07/18 16:00 Temperature Pulse Rate 77 Respiratory Rate Blood Pressure Pulse Oximetry 96 Intake & Output 06/06/18 06/07/18 06/07/18 18:59 06:59 18:59 Intake Total 960 / 960 200 / 200 517.5 / 517.5 Balance 960 / 960 200 / 200 517.5 / 517.5 Weight 198 kg 198 kg Intake: IV 200 / 200 517.5 / 517.5 Maxipime Inj 2,000 MG In NS Inj 200 / 200 100 ML @ 200 mls/hr IV.SIG Q12H [facility] Rx#:[id number] Vancomycin Inj 1,750 MG In NS 517.5 / 517.5 Inj 500 ML @ 258.75 mls/hr IV. SIG Q24H [facility] Rx#:[id number] Oral 960 / 960 Other: # Voids 4 Date of Last Bowel Movement 06/02/18 06/05/18 Narrative: GENERAL: NAD, A&Ox3 HEAD: Normocephalic. NECK: Supple, trachea midline. No lymphadenopathy. EYES: No scleral icterus. No injection or drainage. CARDIOVASCULAR: Regular rate and rhythm without murmurs, gallops, or rubs. RESPIRATORY: Breath sounds equal bilaterally. No accessory muscle use. GASTROINTESTINAL: Abdomen soft, non-tender, nondistended. MUSCULOSKELETAL: No cyanosis, or edema. Right lower extremity is bandaged SKIN: Warm and dry. NEURO: No focal neurological deficits. Results - Labs CBC & Chem 7: 06/01/18 08:00 06/07/18 04:30 Laboratory Results - last 24 hr 06/06/18 06/06/18 06/07/18 16:34 20:36 04:30 BUN 17 Creatinine 1.96 H Estimated GFR 34 L POC Glucose 145 H 215 H Random Vancomycin 12.7 06/07/18 07:55 BUN Creatinine Estimated GFR POC Glucose 124 H Random Vancomycin - Procedures (1) Abscess of right lower leg Date of procedure: 05/29/18 Procedure: Incision and drainage of abscess right leg Large cavernous abscess noted to right proximal medial calf level. Incision made 4cm and irrigation with 3L normal saline gravity irrigation with , followed by packing with a whole container of 1'' iodoform gauze, abd pads x 6, cast padding, coban compression bandage to right foot/leg. Anticipate repeat I&D early week Await cultures Keep compression bandage intact Anesthesia: GETA Surgeon: Adriana Soto DPM Information Security Manager: staff Estimated blood loss (mL): 30 Pathology: other (culture right leg) Condition: stable Disposition: PACU Documented By: Adriana Soto DPM 05/29/18 1252 Assessment and Plan - Assessment (1) Left leg cellulitis Code(s): L03.116 - Cellulitis of left lower limb Status: Acute (2) Sepsis Code(s): A41.9 - Sepsis, unspecified organism Status: Acute (3) Uncontrolled diabetes mellitus Code(s): E11.65 - Type 2 diabetes mellitus with hyperglycemia Status: Acute (4) Obesity Code(s): E66.9 - Obesity, unspecified Status: Chronic (5) BELEM (acute kidney injury) Code(s): N17.9 - Acute kidney failure, unspecified Status: Acute (6) Non-compliance Code(s): Z91.19 - Patient's noncompliance with other medical treatment and regimen Status: Chronic - Plan 43-year-old female admitted secondary to uncontrolled diabetes with cellulitis Podiatry has cleared this patient for discharge. Home health arrangements difficult, in her financial and weight status. Once home health arrangements are made for dressing changes patient will be cleared for discharge from medical standpoint. Sepsis Right lower extremity cellulitis Right lower extremity abscess Podiatry following Repeat podiatry evaluation plan on 06/03/2018 Continue Zosyn Continue vancomycin Continue pain control Follow cultures Diabetes mellitus type 2 Follow blood sugars Insulin sliding scale Diabetic diet NPH 20 units subcutaneously twice daily BELEM Improving Follow renal function HYPOKALEMIA replace and monitor as needed Obesity Weight loss recommended. DVT prophylaxis Heparin SQ Discharge Planning: Discharge pending home health wound care arrangements. (2) Sepsis Qualifiers: Sepsis type: sepsis due to unspecified organism Qualified Code(s): A41.9 - Sepsis, unspecified organism (3) Uncontrolled diabetes mellitus Qualifiers: Diabetes mellitus type: type 2 Glycemic state: with hyperglycemia Qualified Code(s): E11.65 - Type 2 diabetes mellitus with hyperglycemia (4) Obesity Qualifiers: Obesity type: due to excess calories
[2018-06-08 00:03] VITALS: RESP 18
[2018-06-08] MEDS: Insulin NovoLOG Aspart Correctional Sugar Inj SQ SCH ×2 (08:38→11:27)
[2018-06-08] MEDS: Heparin - SQ 10,000 UNITS/ML Vial SQ SCH (08:39)
[2018-06-08] MEDS: Vancomycin Inj 1,750 MG in Sodium Chlor 0.9% Inj 500 ML IV.SIG SCH (08:40)
[2018-06-08 09:04] VITALS: BP 127/77; TEMP 97.8; O2SAT 97
[2018-06-08 09:38] VITALS: PULSE 79
--- NOTE | 2018-06-08 10:21 | P.DS ---
Date of admission: 05/23/18 22:51 Primary care physician: No Primary Care Physician Attending physician on discharge: Maira Romeo Anticipated date of discharge: 06/08/18 Brief History from admission: 43 y/o female with a history of uncontrolled diabetes for over 10 years (does not see a pcp) presented to the ED with complaints of right lower leg wound. She states the sore on her right lower leg opened up this past week and started draining brown fluid. She has associated decreased appetite and nausea. Denies any fever or chills at home.She states she has not been able to control her diabetes with diet and exercise and does not see a pcp due to insurance issues. Patient update on day of discharge: Follow-up visit right lower extremity wound. Patient seen and examined today. Requesting to go home, adamant that she wanted to go home. States that she will attempt to do her own dressing changes but states that she will have home health care to follow her at home and teach her how to do the dressing every other day. As per nursing, wound is not draining but needs packing. Patient refuses to take IV antibiotics today. Plan for discharge is to take Bactrim DS as per MD. Denies pain and discomfort. Denies SOB/ dyspnea. Denies chest pain , palpitations, headaches, dizziness. Denies fevers, chills, n/v/d. Denies dysuria. DS: Diagnosis - Discharge Diagnosis (1) Left leg cellulitis Status: Acute (2) Sepsis Status: Acute (3) Uncontrolled diabetes mellitus Status: Acute (4) Obesity Status: Chronic (5) BELEM (acute kidney injury) Status: Acute (6) Non-compliance Status: Chronic (7) Edema of right lower leg due to peripheral venous insufficiency Status: Acute (8) Abscess of right lower leg Status: Acute DS: Medications - Discharge Medications Prescriptions: fluconazole 100 mg PO Q24H #7 tab hydrocodone-acetaminophen 1 tab PO Q4H PRN #20 tab PRN Reason: Pain insulin aspart U-100 [Novolog U-100 Insulin aspart] 0 unit SUB-Q ACHS #100 ml insulin NPH isoph U-100 human [Novolin N NPH U-100 Insulin] 20 units SUB-Q BID@ 0800,1700 #100 ml Lactobacillus acidophilus 500 mmu cells PO TID #30 cap sulfamethoxazole-trimethoprim [Bactrim DS] 1 tab PO BID #14 tab DS: Summary Hospital Course: Patient is a 43-year-old female with past medical history of DM 2, uncontrolled , noncompliant who came in initially to the hospital for evaluation of cellulitis right lower extremity. Patient initially had sepsis with right lower extremity cellulitis, right lower extremity abscess. Evaluated by podiatry and did I&D of the abscess. Patient was given IV antibiotics Zosyn, vancomycin, which was switched over to cefepime vancomycin and also added fluconazole. She did not wound culture was growing group B beta strep, Myra albicans. She will need to follow-up with oleo hasher and renderer in the outpatient setting. Continue with wound care. Patient has diabetes type 2, uncontrolled. Placed on diabetic diet, NPH 20 units twice daily also insulin sliding scale. She has acute kidney injury which has improved. Patient is morbidly obese and has been counseled regarding weight loss. Patient has met maximal benefits of hospitalization. Clinically stable for discharge. Follow-up with PCP and podiatry in the outpatient setting. She will be followed by home health care for wound care - Time Spent with Patient Total time spent providing and/or coordinating discharge services: Less than 30 minutes - Quality: VTE Deep Vein Thrombosis/Pulmonary Embolism Present on Admission: No Exam Vital signs: Vital Signs 06/07/18 11:39 06/07/18 12:00 06/07/18 16:00 Temperature 98.1 F 97.8 F Pulse Rate 88 80 Respiratory Rate 16 16 Blood Pressure 155/77 H 147/84 H Pulse Oximetry 99 96 97 06/07/18 20:00 06/08/18 00:00 06/08/18 04:00 Temperature 98.1 F 97.8 F 99.0 F Pulse Rate 81 77 81 Respiratory Rate 18 18 18 Blood Pressure 168/108 H 130/82 149/83 H Pulse Oximetry 99 97 98 06/08/18 08:00 Temperature 97.8 F Pulse Rate 79 Respiratory Rate 18 Blood Pressure 127/77 Pulse Oximetry 97 Intake & Output 06/07/18 06/08/18 06/08/18 18:59 06:59 18:59 Intake Total 617.5 / 617.5 Balance 617.5 / 617.5 Weight 198.8 kg Intake: IV 617.5 / 617.5 Maxipime Inj 2,000 MG In NS Inj 100 / 100 100 ML @ 200 mls/hr IV.SIG Q12H MIGUELITO Rx#:[id number] Vancomycin Inj 1,750 MG In NS 517.5 / 517.5 Inj 500 ML @ 258.75 mls/hr IV. SIG Q24H MIGUELITO Rx#:[id number] Other: # Voids 4 4 Date of Last Bowel Movement 06/08/18 06/08/18 # Bowel Movements 1 2 Narrative: GENERAL: This is a morbidly obese patient, in no apparent distress. SKIN: Warm and dry. HEENT: Normocephalic. Pupils equal round and reactive. Nose without bleeding. Airway patent. NECK: Trachea midline. No JVD. Supple. CARDIOVASCULAR: Regular rate and rhythm without murmurs, gallops, or rubs. RESPIRATORY: Clear to auscultation. Breath sounds equal bilaterally. No wheezes , rales, or rhonchi. GASTROINTESTINAL: Abdomen soft, non-tender, nondistended. Bowel Sounds normoactive x4. MUSCULOSKELETAL: Extremities without clubbing, cyanosis. Right LE edema trace, wound wrapped with kerlex. NEUROLOGICAL: Awake and alert. No focal neuro deficit. Moves all extremities. Normal speech. Results Procedures completed during hospitalization: (1) Abscess of right lower leg Date of procedure: 05/29/18 Procedure: Incision and drainage of abscess right leg Large cavernous abscess noted to right proximal medial calf level. Incision made 4cm and irrigation with 3L normal saline gravity irrigation with , followed by packing with a whole container of 1'' iodoform gauze, abd pads x 6, cast padding, coban compression bandage to right foot/leg. Anticipate repeat I&D early week Await cultures Keep compression bandage intact Anesthesia: GETA Surgeon: Adriana Soto DPM Investigation Division Captain: staff Estimated blood loss (mL): 30 Pathology: other (culture right leg) Condition: stable Disposition: PACU Documented By: Adriana Soto DPM 05/29/18 1252 Labs on day of discharge: Labs from last 24 hours 06/08/18 06/08/18 07:39 07:25 BUN 17 Creatinine 1.84 H Estimated GFR 36 L POC Glucose 119 H Preliminary micro results at discharge 05/29/18 12:25 Fungal Culture - Preliminary Abscess - Leg No growth in 1 week 05/29/18 12:25 Mycobacterial Culture - Preliminary Abscess - Leg No growth in 1 week - Impressions ITS Impressions Soft Tissue Ultrasound 05/23/18 20:47 CONCLUSION: 1. Complex fluid collection may be inflammatory/infectious process or posttraumatic and appears nonspecific. Aorta w/Runoff CTA 05/24/18 00:00 CONCLUSION: 1. Extensive serpiginous edema below the knee on the right and to a lesser degree on the left. There is excellent three-vessel runoff to the left ankle and on the right side blood vessels are patent although it down to trifurcation past the popliteal artery. Below the knee there is dampened flow probably due to extrinsic mass effect from significant edema in the surrounding soft tissues without definite focal stenosis for technique. Lower Extremity MRI 05/24/18 00:00 CONCLUSION: 1. Diffuse subcutaneous edema, nonorganized fluid and skin thickening characteristic of cellulitis and inflammation without obvious abscess. Venous Doppler Study 05/25/18 00:00 CONCLUSION: 1. No deep venous thrombosis. 2. Decreasing fluid collection right leg. Discharge Plan - Discharge Disposition Patient Disposition: W/Home Health Service - Discharge Condition Condition: Stable - Discharge Order Discharge Orders: Discharge Order (Routine); Ordered 06/08/18 Ordered By: Kain Eisenberg - Physicians Team Primary Care Provider: Primary Care Staci,Karen Attending Provider: Maira Romeo Other Providers: Rosemary Maravilla DPM
--- NOTE | 2018-06-08 10:43 | P.DCO ---
- Physical Therapy Order: Evaluate and treat - Home Health Nursing Order: Medical education, Signs/symptoms of disease process, Diabetic education , Wound care and dressing changes, Nursing assessment with vital signs - Certification I have seen patient Megan Menon on 06/08/18. My clinical findings support the need for the requested home health care services because: Limited mobility due to disease progression, Limited ability to care for self, High risk of falls I certify that my clinical findings support that this patient is homebound because: Post-op weakness, Unsteady gait/balance
[2018-06-10] MEDS ORDERED: Pharmacy Ordered Lab Info OTHER ONE (08:45)
== END 2018-06-08 12:58 | disposition home health service (06) ==
LOC: NEPD 18:19 → NEDA 22:51 → NEPGCP 05-24 01:09 → N04 05-25 16:13
PROVIDERS: ADMIT Hospitalist; ATTEND Hospitalist